=== PATIENT | female | born 1960 | race Caucasian/White ===

== ENCOUNTER 2018-06-08 07:19 | Inpatient (IN) | payer BC, MEDICARE ==
[~2018-06-08] VITALS: Ht 165.1 cm; Wt 114.7 kg
[2018-06-08 08:54] LABS: Basophils # (auto) 0 uL; Eosinophils # (auto) 0.2 uL; Eosinophils % (auto) 2.9 % (0.0-7.0); Monocytes # (auto) 0.4 uL; Neutrophils # (auto) 3.9 uL; Nucleated Red Blood Cells % 0.1 %; Red Blood Cells 4.28 10^6/uL (4.0-5.20); Red Cell Distribution Width 16.5 % (11.8-14.3)
[2018-06-08 08:55] LABS: Basophils % (auto) 0.5 % (0.0-2.0); Hemoglobin 11.2 g/dL (12.2-16.2); Lymphocytes # (auto) 2.6 uL; Mean Corpuscular Volume 79.5 fL (80.0-100.0); Neutrophils % (auto) 54.6 % (37.0-80.0); Platelet Count (auto) 191 10^3/uL (140-450); White Blood Cell 7.2 10^3/uL (4.4-10.8)
[2018-06-08 09:00] LABS: Mean Corpuscular Hemoglobin 26.4 pg (28.0-32.0)
[2018-06-08 09:05] LABS: Alanine Aminotransferase 21 U/L (13-56); Albumin 2.8 g/dL (3.4-5.0); Anion Gap 7 (5-15); Aspartate Aminotransferase 15 U/L (15-37); BUN/Creatinine Ratio 19.8; Blood Urea Nitrogen 17 mg/dL (7-18); Calcium 8.4 mg/dL (8.5-10.1); Carbon Dioxide 29 mmol/L (21-32); Chloride 103 mmol/L (98-107); GFR African American 87 mL/min; GFR Non-African American 72 mL/min; Glucose 179 mg/dL (74-106); Potassium 3.7 mmol/L (3.5-5.1); Sodium 139 mmol/L (136-145)
[2018-06-08 09:07] LABS: Partial Thromboplastin Time 33.7 sec (23.78-33.04); Prothrombin Time 10.7 sec (9.27-12.13)
[2018-06-08 09:11] LABS: Alkaline Phosphatase 80 U/L (45-117); Bilirubin, Total 0.2 mg/dL (0.2-1.0); Total Protein 7.7 g/dL (6.4-8.2)
[2018-06-08] MEDS ORDERED: ONDANSETRON HCL 4 MG/2 ML VIAL IV PRN (10:30)
[2018-06-08] MEDS ORDERED: DEXTROSE (50%) 50ML SYRG IV PRN (10:30)
[2018-06-08] MEDS ORDERED: HYDROcodone-ACET 5/325MG TAB PO PRN (10:30)
[2018-06-08] MEDS ORDERED: MORPHINE SULF INJ 2 MG/ML SYRINGE 1ML IV PRN (10:30)
[2018-06-08] MEDS ORDERED: NITROGLYCERIN 0.4MG/HR TOPICAL PATCH TD ONE (10:30)
[2018-06-08] MEDS ORDERED: MORPHINE SULFATE 4 MG/ML SYR/VIAL IV PRN (10:30)
[2018-06-08] MEDS ORDERED: NITROGLYCERIN 0.4 MG SL TAB SL PRN (10:30)
[2018-06-08 10:42] LABS: Urine Bacteria FEW /hpf (None Seen); Urine Blood Negative /uL (Negative); Urine Specific Gravity 1.016 (1.001-1.035); Urine WBC 14 /hpf (0 - 5)
[2018-06-08 11:09] LABS: Cholesterol 118 mg/dL (< 200)
[2018-06-08 11:13] LABS: HDL Cholesterol 36 mg/dL (40-59); LDL Cholesterol 71 mg/dL (< 100); Triglycerides 157 mg/dL (< 150)
[2018-06-08] MEDS ORDERED: CLINDAMYCIN 300MG IV 50 ML IV ONE (11:15)
[2018-06-08] MEDS: PANTOPRAZOLE 40 MG/10 ML VIAL IV SCH (11:44)
[2018-06-08] MEDS: ACCU-CHEK COMFORT CURVE STRIP VI SCH ×3 (11:50→22:00)
[2018-06-08] MEDS: InsuLIN REG 1unit/0.01ml Soln (100units/ml) SC SCH ×3 (11:54→23:06)
--- NOTE | 2018-06-08 18:00 | NUR ---
Telemetry admit from ER MOHIT SAUL admitted to Telemetry unit after SBAR received. Patient oriented to Echo Odnonell RN, unit, room, bed, and unit policies regarding patient care and visiting hours. Patient now on continuous telemetry monitoring, tele box # 21 and telemetry reading on arrival to unit is 76 SR. Patient placed standby bedside oxygen, weighed by bed scale and encouraged to call if she needs something. All questions and concerns addressed, patient verbalized understanding. Note: Patient awake, oriented x4. No acute distress noted.
--- NOTE | 2018-06-08 18:40 | NUR ---
Patient sitting in bed, eating dinner at this time. Family member at bedside.
[2018-06-08] MEDS ORDERED: GABA-339 PO (18:56)
[2018-06-08] MEDS ORDERED: CABE0.5T PO (18:56)
[2018-06-08] MEDS ORDERED: SERT-160 PO (18:56)
[2018-06-08] MEDS ORDERED: TRAM50TA2 PO (18:56)
[2018-06-08] MEDS ORDERED: GLIP-116 PO (18:56)
[2018-06-08] MEDS ORDERED: ATOR20TA50 PO (18:56)
[2018-06-08] MEDS ORDERED: METH10T PO (18:56)
--- NOTE | 2018-06-08 19:40 | NUR ---
Opening Shift Note Assumed care of patient, awake and alert x4. No S/S of distress/SOB on room air. Denies chest pain at this time. Bed locked in lowest position call light within reach. Instructed on POC and to call for assist PRN, will continue to monitor for changes Q1hr and PRN.
[2018-06-08] MEDS: CLINDAMYCIN 300MG IV 50 ML IV SCH (21:27)
[2018-06-08 22:00] VITALS: BP 112/55
[2018-06-08] MEDS ORDERED: ATORVASTATIN 20 MG TAB PO SCH (22:00)
[2018-06-08] MEDS: METOPROLOL TARTRATE 25 MG TAB PO SCH (23:05)
[2018-06-09 04:38] VITALS: BP 104/68
[2018-06-09] MEDS: ACCU-CHEK COMFORT CURVE STRIP VI SCH ×4 (05:44→22:53)
[2018-06-09] MEDS: CLINDAMYCIN 300MG IV 50 ML IV SCH ×3 (05:44→22:51)
[2018-06-09] MEDS: InsuLIN REG 1unit/0.01ml Soln (100units/ml) SC SCH ×4 (05:54→22:53)
[2018-06-09 06:03] LABS: Basophils # (auto) 0 uL; Basophils % (auto) 0.4 % (0.0-2.0); Eosinophils # (auto) 0.2 uL; Hematocrit 36.4 % (36.0-46.0); Hemoglobin 11.8 g/dL (12.2-16.2); Lymphocytes # (auto) 2.4 uL; Lymphocytes % (auto) 28.7 % (10.0-50.0); Mean Corpuscular Hemoglobin 26.2 pg (28.0-32.0); Mean Corpuscular Hgb Conc. 32.3 g/dL (32.0-36.0); Mean Corpuscular Volume 81.2 fL (80.0-100.0); Monocytes # (auto) 0.4 uL; Monocytes % (auto) 4.5 % (0.0-12.0); Neutrophils # (auto) 5.2 uL; Neutrophils % (auto) 63.4 % (37.0-80.0); Nucleated Red Blood Cells % 0.1 %; Platelet Count (auto) 193 10^3/uL (140-450); Red Blood Cells 4.48 10^6/uL (4.0-5.20); Red Cell Distribution Width 17.2 % (11.8-14.3); White Blood Cell 8.2 10^3/uL (4.4-10.8)
[2018-06-09 06:20] LABS: BUN/Creatinine Ratio 18.8; Calcium 8.8 mg/dL (8.5-10.1); Potassium 4.2 mmol/L (3.5-5.1)
--- NOTE | 2018-06-09 07:25 | NUR ---
Received report that patient wants her home medications resumed while in the hospital, that patient takes Methadone at night, not at 1000 am. Will call the Pharmacy to change the time for Methadone.
[2018-06-09] MEDS ORDERED: SERT-135 PO (07:30)
--- NOTE | 2018-06-09 07:40 | NUR ---
Patient in bed, asleep. On O2 at 2 LPM. No acute distress noted.
--- NOTE | 2018-06-09 08:18 | NUR ---
Called Pharmacy. Spoke with Pharmacist Desi that patient takes Methadone at night at home, not at 1000 am. Desi to reschedule Methadone to be given at night.
[2018-06-09 09:00] VITALS: BP 127/80
[2018-06-09] MEDS: PANTOPRAZOLE 40 MG/10 ML VIAL IV SCH (09:54)
[2018-06-09] MEDS: ASPirin 81 mg TAB PO SCH (09:55)
[2018-06-09] MEDS: ACETAMINOPHEN 500 MG TAB PO PRN ×2 (09:55→23:57)
[2018-06-09] MEDS: NITROGLYCERIN 0.4MG/HR TOPICAL PATCH TD SCH (09:55)
--- NOTE | 2018-06-09 09:55 | NUR ---
Patient refused Lopressor and Zestril, stated she does not take medications for blood pressure.
--- NOTE | 2018-06-09 09:55 | NUR ---
Patient asked for Tylenol for headache when she gets her Nitroglycerin patch applied.
[2018-06-09] MEDS: LISINOPRIL 5 MG TAB PO SCH (09:59)
[2018-06-09] MEDS: METOPROLOL TARTRATE 25 MG TAB PO SCH ×2 (09:59→22:52)
--- NOTE | 2018-06-09 11:10 | NUR ---
Lg Horn made aware patient gets so panicky, asking for Sertraline to help her calm down; patient takes Sertraline 100 mg PO BID at home. Dr. Bee ordered Zoloft 100 mg PO BID. Called Pharmacy to verify the medication.
--- NOTE | 2018-06-09 11:10 | NUR ---
Lg Horn made aware patient wants her home medications to be resumed while at the hospital (see Medication Reconciliation Home Meds) including Tramadol for pain and Neurontin/Gabapentin at night. MD said he will see the patient.
[2018-06-09] MEDS: SERTRALINE HCL 50 MG TAB PO SCH ×2 (11:17→22:53)
--- NOTE | 2018-06-09 12:20 | NUR ---
Patient refused Ativan PO, stated she used to take it but it was "addictive" she's not taking it anymore. Patient on Methadone.
--- NOTE | 2018-06-09 12:20 | NUR ---
Lg Horn has seen the patient. MD ordered to resume the medications patient takes at home.
--- NOTE | 2018-06-09 12:25 | NUR ---
Dr. Jameson (for Cardiology) at bedside. Patient has orders for Stress Test tomorrow, Sunday.
[2018-06-09] MEDS ORDERED: LEVOFLOXACIN 500 MG TAB PO ONE (12:30)
--- NOTE | 2018-06-09 13:10 | NUR ---
Family member at bedside.
[2018-06-09] MEDS: GABAPENTIN 300 MG CAP PO SCH ×2 (13:11→22:53)
--- NOTE | 2018-06-09 15:00 | NUR ---
New IV line started on the right lower forearm, 22 gauge, intact and patent. Patient able to tolerate it. Patient complained that IV line on the left wrist hurts. IV line on the left wrist removed, IV catheter intact, pressure dressing applied.
[2018-06-09] MEDS: traMADol HCL 50 MG TAB PO PRN (15:26)
--- NOTE | 2018-06-09 15:26 | NUR ---
Patient stated she's in pain, at 4/10 at this time. Tramadol PO given as ordered for pain.
[2018-06-09 17:00] VITALS: BP 127/71
--- NOTE | 2018-06-09 18:00 | NUR ---
Patient speaking to patient on Bed A (Room 278). Patient is ambulatory, steady gait noted.
[2018-06-09] MEDS: glipiZIDE 5 MG TAB PO SCH (18:08)
--- NOTE | 2018-06-09 19:00 | NUR ---
NPO after midnight for Cardiolite Multiple/Stress Test.
[2018-06-09 22:00] VITALS: BP 136/80
[2018-06-09] MEDS: ATORVASTATIN 20 MG TAB PO SCH (22:51)
[2018-06-09] MEDS: METHADONE HCL 10 MG TAB PO SCH (22:52)
[2018-06-10 05:23] VITALS: BP 106/61
[2018-06-10] MEDS: glipiZIDE 5 MG TAB PO SCH ×2 (06:12→18:13)
[2018-06-10] MEDS: GABAPENTIN 300 MG CAP PO SCH ×3 (06:12→22:01)
[2018-06-10] MEDS: CLINDAMYCIN 300MG IV 50 ML IV SCH ×3 (06:12→22:00)
[2018-06-10] MEDS: ACCU-CHEK COMFORT CURVE STRIP VI SCH ×4 (06:13→22:01)
[2018-06-10] MEDS: InsuLIN REG 1unit/0.01ml Soln (100units/ml) SC SCH ×4 (06:13→22:14)
[2018-06-10 08:00] VITALS: BP 92/56
--- NOTE | 2018-06-10 08:00 | NUR ---
Opening shift note: Patient is awake, alert, and orient x4. Patient is on 2 L of oxygen via nasal cannula. Ivs right wrist and right forearm both are patent, asystemic, clean and dry. no s/s of distress. patient states they are not having pain. Patient was told to call for assistance as need. bed in lowest position and call light is within reach.
[2018-06-10] MEDS ORDERED: ADENOSINE 89 MG in GIVE UN-DILUTED 0 ML IV STA (08:29)
[2018-06-10] MEDS: NITROGLYCERIN 0.4MG/HR TOPICAL PATCH TD SCH (10:00)
[2018-06-10] MEDS: SERTRALINE HCL 50 MG TAB PO SCH ×2 (10:12→22:01)
[2018-06-10] MEDS: PANTOPRAZOLE 40 MG/10 ML VIAL IV SCH (10:12)
[2018-06-10] MEDS: METOPROLOL TARTRATE 25 MG TAB PO SCH ×2 (10:13→22:00)
[2018-06-10] MEDS: ASPirin 81 mg TAB PO SCH (10:13)
[2018-06-10] MEDS: LEVOFLOXACIN 500 MG TAB PO SCH (10:13)
[2018-06-10] MEDS: LISINOPRIL 5 MG TAB PO SCH (10:14)
[2018-06-10 10:49] VITALS: BP 101/41
[2018-06-10 16:56] VITALS: BP 93/50
--- NOTE | 2018-06-10 19:30 | NUR ---
Opening Shift Note Assumed care of patient, awake and alert x4. No S/S of distress/SOB on 2L N/C as needed. Denies chest pain at this time. Bed locked in lowest position call light within reach. Instructed on POC and to call for assist PRN, will continue to monitor for changes Q1hr and PRN.
[2018-06-10] MEDS ORDERED: LACTULOSE 20Gm/30ML SOLN PO ONE (21:00)
[2018-06-10 22:00] VITALS: BP 96/55
[2018-06-10] MEDS: DOCUSATE SOD 100 MG CAP PO SCH (22:00)
[2018-06-10] MEDS: ATORVASTATIN 20 MG TAB PO SCH (22:00)
[2018-06-10] MEDS: METHADONE HCL 10 MG TAB PO SCH (22:01)
[2018-06-11] MEDS: ACETAMINOPHEN 500 MG TAB PO PRN (00:06)
[2018-06-11] MEDS ORDERED: ROPI0.5T PO (00:55)
[2018-06-11 04:59] VITALS: BP 98/45
--- NOTE | 2018-06-11 06:45 | NUR ---
SKIN/ RASH Electrodes from telemetry box appeared to cause redness and an open rash. Took wound photos and place wound consultation. Patient refusing to wear box. Informed PENNY and returned Box to PENNY.
[2018-06-11] MEDS: GABAPENTIN 300 MG CAP PO SCH ×3 (07:00→22:57)
[2018-06-11] MEDS: glipiZIDE 5 MG TAB PO SCH ×2 (07:00→17:52)
[2018-06-11] MEDS: CLINDAMYCIN 300MG IV 50 ML IV SCH ×3 (07:00→22:55)
[2018-06-11] MEDS: InsuLIN REG 1unit/0.01ml Soln (100units/ml) SC SCH ×4 (07:00→22:58)
[2018-06-11] MEDS: ACCU-CHEK COMFORT CURVE STRIP VI SCH ×4 (07:00→22:58)
[2018-06-11] MEDS: traMADol HCL 50 MG TAB PO PRN (07:01)
--- NOTE | 2018-06-11 07:27 | NUR ---
NEW ORDERS Verbal order read back and verified from Indira. See eMAR
[2018-06-11] MEDS ORDERED: diphenhdrAMINE HCL 25 MG CAP PO PRN (07:45)
[2018-06-11 09:00] VITALS: BP 97/61
[2018-06-11] MEDS: METOPROLOL TARTRATE 25 MG TAB PO SCH ×2 (10:00→22:56)
[2018-06-11] MEDS: NITROGLYCERIN 0.4MG/HR TOPICAL PATCH TD SCH (10:00)
[2018-06-11] MEDS: LISINOPRIL 5 MG TAB PO SCH (10:00)
[2018-06-11] MEDS: ASPirin 81 mg TAB PO SCH (11:00)
[2018-06-11] MEDS: PANTOPRAZOLE 40 MG/10 ML VIAL IV SCH (11:00)
--- NOTE | 2018-06-11 11:00 | NUR ---
WOUND CARE NOTE: WOUND PHOTOS TAKEN OF PATIENT'S TRUNK FOR REFERENCE BY BEDSIDE NURSE FOR NEW "RASH" DEVELOPED. WOUND CONSULT ORDERED. PATIENT APPEARS TO HAVE A TAPE ALLERGY TO ECG LEADS. ALL LEADS WERE REMOVED, RED INTACT RASH APPEARS TO BE A TAPE ALLERGY. SKIN REMAINS INTACT. ERYTHEMA HAS IMPROVED SINCE PHOTO WAS TAKEN. RECOMMEND: CAVILON NO STING BARRIER FILM TO BE APPLIED TO SKIN PRIOR TO ANY TAPE PRODUCT BEING PLACED ON PATIENT'S SKIN. NO WOUND CARE MONITORING IS NEEDED AT THIS TIME.
[2018-06-11] MEDS: SERTRALINE HCL 50 MG TAB PO SCH ×2 (11:01→22:57)
[2018-06-11] MEDS: DOCUSATE SOD 100 MG CAP PO SCH ×2 (11:01→22:56)
[2018-06-11] MEDS: LEVOFLOXACIN 500 MG TAB PO SCH (11:01)
[2018-06-11 13:00] VITALS: BP 92/58
[2018-06-11] MEDS: ROPINEROLE PO SCH ×2 (14:00→22:56)
--- NOTE | 2018-06-11 15:35 | NUR ---
Nutrition Assessment Notes please see attached link for complete assessment Est. Needs based on ABW (84 kg): 7131-1751 kcal (17-20 kcal/kgBW), 67-84 gms pro (0.8-1.0 gms/kgBW). Will continue to monitor pertinent labs and reassess nutrient needs prn Addendum: 06/11/18 at [address] Amended: Links added.
[2018-06-11 17:16] VITALS: BP 102/61
--- NOTE | 2018-06-11 20:04 | NUR ---
Delia hospitalist Rigo Patient requesting Lactulose, she reports constipation last BM 06-07-18. she is scheduled for LHC in the morning and does not want to be constipated post op.
[2018-06-11] MEDS ORDERED: LACTULOSE 20Gm/30ML SOLN PO ONE (20:45)
[2018-06-11 21:37] VITALS: BP 109/65
[2018-06-11] MEDS: ATORVASTATIN 20 MG TAB PO SCH (22:56)
[2018-06-11] MEDS: METHADONE HCL 10 MG TAB PO SCH (22:57)
--- NOTE | 2018-06-12 02:50 | NUR ---
Patient reports chest tightness VS: 98.8 126/72 HR65 16RR 94% 0254: 12 lead ECG completed placed in chart, NSR normal ECG
[2018-06-12] MEDS: ACETAMINOPHEN 500 MG TAB PO PRN ×2 (03:16→21:19)
[2018-06-12 05:00] VITALS: BP 112/63
--- NOTE | 2018-06-12 05:19 | NUR ---
Opening Shift Note Assumed care of patient, awake and alert x4. No S/S of distress/SOB on room air. Denies chest pain at this time. Bed locked in lowest position call light within reach. Instructed on POC and to call for assist PRN, will continue to monitor for changes Q1hr and PRN. Addendum: 06/12/18 at 0521 by RICKY BROWNE RN wrong date and time CORRECT DATE AND TIME 06/11/181929
[2018-06-12] MEDS: ROPINEROLE PO SCH ×3 (06:00→22:00)
[2018-06-12] MEDS: GABAPENTIN 300 MG CAP PO SCH ×3 (06:18→22:57)
[2018-06-12] MEDS: glipiZIDE 5 MG TAB PO SCH ×2 (06:18→19:49)
[2018-06-12] MEDS: CLINDAMYCIN 300MG IV 50 ML IV SCH ×3 (06:18→22:49)
[2018-06-12] MEDS: InsuLIN REG 1unit/0.01ml Soln (100units/ml) SC SCH ×4 (06:19→22:00)
[2018-06-12] MEDS: ACCU-CHEK COMFORT CURVE STRIP VI SCH ×4 (06:19→23:06)
--- NOTE | 2018-06-12 07:00 | NUR ---
RECEIVED REPORT FROM RICKY VALENZUELA RN. PATIENT IS RESTING IN BED NO S/S OF DISTRESS.
--- NOTE | 2018-06-12 07:20 | NUR ---
ROLL UP MACHINE OPERATOR CALLED AND IS READY FOR PATIENT.
[2018-06-12] MEDS ORDERED: IODIXANOL 320MG/ML 100ML BTL IV ONE (07:30)
[2018-06-12] MEDS ORDERED: LIDOCAINE 2%HCL (LOCAL ANESTH.) INJ 20ML MDV ONE (07:31)
--- NOTE | 2018-06-12 07:50 | NUR ---
PATIENT IS IN ASBESTOS WORKER FOR PROCEDURE.
[2018-06-12] MEDS ORDERED: fentaNYL CITRATE 100 MCG/2 ML VL ONE (09:13)
[2018-06-12] MEDS ORDERED: ANGIOMAX 250 MG VIAL IV ONE (09:13)
[2018-06-12] MEDS ORDERED: MIDAZOLAM HCL 1MG/1ML-2 ML VIAL ONE (09:13)
[2018-06-12] MEDS ORDERED: SODIUM CHL 0.9% 0 ML ONE (09:13)
[2018-06-12] MEDS: METOPROLOL TARTRATE 25 MG TAB PO SCH ×2 (10:00→21:18)
[2018-06-12] MEDS: NITROGLYCERIN 0.4MG/HR TOPICAL PATCH TD SCH (10:00)
[2018-06-12 13:00] VITALS: BP 142/59
[2018-06-12] MEDS: PANTOPRAZOLE 40 MG/10 ML VIAL IV SCH (13:03)
[2018-06-12] MEDS: DOCUSATE SOD 100 MG CAP PO SCH ×2 (13:04→22:56)
[2018-06-12] MEDS: ASPirin 81 mg TAB PO SCH (13:04)
[2018-06-12] MEDS: LEVOFLOXACIN 500 MG TAB PO SCH (13:04)
[2018-06-12] MEDS: LISINOPRIL 5 MG TAB PO SCH (13:06)
[2018-06-12] MEDS: SERTRALINE HCL 50 MG TAB PO SCH ×2 (13:11→22:58)
[2018-06-12] MEDS ORDERED: ALUM & MAG HYDROX-SIMETH LIQ(MAALOX) 30 ML PO ONE (15:45)
[2018-06-12 17:08] VITALS: BP 69/48
--- NOTE | 2018-06-12 20:00 | NUR ---
Opening Shift Note Assumed care of patient, awake and alert X4, patient ambulates independently to bathroom. Patient is s/p LHC today, dressing to right groin is C/D/I. Pulses palpable to bilateral lower extremities, sensation intact bilaterally. Patient refusing mercury washer due to tape allergy. Patient instructed on importance of continuous telemetry monitoring patient continues to refuse, no mercury washer in place x2 days. No S/S of distress/SOB or pain. Instructed on POC and to call for assist PRN, will continue to monitor for changes Q1hr and PRN.
[2018-06-12 22:00] VITALS: BP 95/54
[2018-06-12] MEDS: ATORVASTATIN 20 MG TAB PO SCH (22:57)
[2018-06-12] MEDS: METHADONE HCL 10 MG TAB PO SCH (22:59)
[2018-06-12] MEDS: traMADol HCL 50 MG TAB PO PRN (23:54)
[2018-06-13 05:48] VITALS: BP 91/48
[2018-06-13] MEDS: ROPINEROLE PO SCH ×2 (06:00→14:00)
[2018-06-13] MEDS: CLINDAMYCIN 300MG IV 50 ML IV SCH ×2 (06:35→14:00)
[2018-06-13] MEDS: GABAPENTIN 300 MG CAP PO SCH ×2 (06:35→14:00)
[2018-06-13] MEDS: glipiZIDE 5 MG TAB PO SCH (06:36)
[2018-06-13] MEDS: ACCU-CHEK COMFORT CURVE STRIP VI SCH ×2 (06:36→11:30)
[2018-06-13] MEDS: InsuLIN REG 1unit/0.01ml Soln (100units/ml) SC SCH ×2 (06:47→11:30)
[2018-06-13 08:53] VITALS: BP 102/57
[2018-06-13] MEDS: PANTOPRAZOLE 40 MG/10 ML VIAL IV SCH (10:00)
[2018-06-13] MEDS: DOCUSATE SOD 100 MG CAP PO SCH (10:00)
[2018-06-13] MEDS: ASPirin 81 mg TAB PO SCH (10:00)
[2018-06-13] MEDS: LISINOPRIL 5 MG TAB PO SCH (10:00)
[2018-06-13] MEDS: NITROGLYCERIN 0.4MG/HR TOPICAL PATCH TD SCH (10:00)
[2018-06-13] MEDS: SERTRALINE HCL 50 MG TAB PO SCH (10:00)
[2018-06-13] MEDS: LEVOFLOXACIN 500 MG TAB PO SCH (10:00)
[2018-06-13] MEDS: METOPROLOL TARTRATE 25 MG TAB PO SCH (10:00)
[2018-06-13 11:28] LABS: Basophils # (auto) 0 uL; Basophils % (auto) 0.2 % (0.0-2.0); Eosinophils # (auto) 0.3 uL; Monocytes # (auto) 0.5 uL; Red Cell Distribution Width 17.3 % (11.8-14.3)
[2018-06-13 11:30] LABS: Eosinophils % (auto) 3.5 % (0.0-7.0); Hematocrit 33.2 % (36.0-46.0); Hemoglobin 10.7 g/dL (12.2-16.2); Lymphocytes # (auto) 2.7 uL; Lymphocytes % (auto) 36.2 % (10.0-50.0); Mean Corpuscular Hemoglobin 25.9 pg (28.0-32.0); Mean Corpuscular Hgb Conc. 32.2 g/dL (32.0-36.0); Mean Corpuscular Volume 80.5 fL (80.0-100.0); Monocytes % (auto) 6.7 % (0.0-12.0); Neutrophils # (auto) 3.9 uL; Neutrophils % (auto) 53.4 % (37.0-80.0); Nucleated Red Blood Cells % 0.1 %; Platelet Count (auto) 185 10^3/uL (140-450); Red Blood Cells 4.13 10^6/uL (4.0-5.20); White Blood Cell 7.3 10^3/uL (4.4-10.8)
[2018-06-13 11:43] LABS: Calcium 8.5 mg/dL (8.5-10.1); Potassium 4.5 mmol/L (3.5-5.1)
--- NOTE | 2018-06-13 12:19 | NUR ---
Opening Shift Note Assumed care of patient, awake and alert. No S/S of distress/SOB or pain. Instructed on POC and to call for assist PRN, will continue to monitor for changes Q1hr and PRN.
--- NOTE | 2018-06-13 12:50 | NUR ---
Dr. Bee is present at the patient's bedside. Discussed discharge with the patient and follow up instructions.
--- NOTE | 2018-06-13 13:02 | NUR ---
CHAPERONED DR. KABA
[2018-06-13 13:15] VITALS: BP 102/55
[2018-06-13 13:29] VITALS: BP 110/63
--- NOTE | 2018-06-13 13:55 | NUR ---
Discharged The patient has been discharged from the unit. All discharge and follow up instructions were given to the patient. The patient was educated and verbalized her understanding.
== END 2018-06-13 14:05 | disposition home or self-care (01) | DRG 287 ==
LOC: ER 07:19 → TELE 10:45 → TELE-WESTW 18:02
PROVIDERS: ADMIT Nurse Practitioner Acute Care; ATTEND Family Medicine
PROC: 4A023N7 Measurement of Cardiac Sampling and Pressure, Left Heart, Percutaneous Approach (ICD-10-PCS; principal; 2018-06-12)
PROC: B2111ZZ Fluoroscopy of Multiple Coronary Arteries using Low Osmolar Contrast (ICD-10-PCS; 2018-06-12)
PROC: B2151ZZ Fluoroscopy of Left Heart using Low Osmolar Contrast (ICD-10-PCS; 2018-06-12)
DX: R07.89 Other chest pain (principal); I24.9 Acute ischemic heart disease, unspecified; F11.20 Opioid dependence, uncomplicated; E44.0 Moderate protein-calorie malnutrition; L03.115 Cellulitis of right lower limb; N39.0 Urinary tract infection, site not specified; Z68.41 Body mass index [BMI] 40.0-44.9, adult; D64.9 Anemia, unspecified; I10 Essential (primary) hypertension; E11.9 Type 2 diabetes mellitus without complications; E66.01 Morbid (severe) obesity due to excess calories; Z88.0 Allergy status to penicillin; Z88.2 Allergy status to sulfonamides; Z85.72 Personal history of non-Hodgkin lymphomas; Z91.11 Patient's noncompliance with dietary regimen; Z79.4 Long term (current) use of insulin; Z92.21 Personal history of antineoplastic chemotherapy
CPT/HCPCS: 36415; 71045; 78452; 80048; 80053; 80061; 81001; 82962; 83036; 83880; 84443; 84484; 85025; 85379; 85610; 85730; 86141; 93005; 93017; 93306; 93970; 96365; 96375; 99152; A6257; C9113; G0378; J0153; J1815; J2250; J2405; J3490; Q9967

== ENCOUNTER 2019-09-17 14:20 | Inpatient (IN) | payer BC, MEDICARE ==
[~2019-09-17] VITALS: Ht 162.6 cm; Wt 98.5 kg
[~2019-09-17 14:20] MED LIST: ATOR20TA50 PO; CABE0.5T PO; GABA-339 PO; GLIP10TA9 PO; METH10T PO; ROPI0.5T16 PO; SERT100T PO; TRAM50TA2 PO
[2019-09-17] MEDS ORDERED: ACETAMINOPHEN 500 MG TAB PO ONE ×2 (14:52→15:00)
[2019-09-17 15:28] LABS: Basophils # (auto) 0 10 ^3/uL (0-0.2); Eosinophils # (auto) 0 10 ^3/uL (0-0.8); Lymphocytes # (auto) 0.7 10 ^3/uL (0.4-5.4); Lymphocytes % (auto) 20.9 % (10.0-50.0); Monocytes # (auto) 0.2 10 ^3/uL (0-1.3); Neutrophils # (auto) 2.5 10 ^3/uL (1.6-8.6); White Blood Cell 3.5 10^3/uL (4.4-10.8)
[2019-09-17 15:30] LABS: Basophils % (auto) 0.2 % (0.0-2.0); Eosinophils % (auto) 0.3 % (0.0-7.0); Hematocrit 37.3 % (36.0-46.0); Hemoglobin 12.3 g/dL (12.2-16.2); Mean Corpuscular Hemoglobin 25.9 pg (28.0-32.0); Mean Corpuscular Volume 78.5 fL (80.0-100.0); Monocytes % (auto) 6.4 % (0.0-12.0); Neutrophils % (auto) 72.2 % (37.0-80.0); Nucleated Red Blood Cells % 0.3 %; Platelet Count (auto) 192 10^3/uL (140-450); Red Blood Cells 4.75 10^6/uL (4.0-5.20); Red Cell Distribution Width 16.8 % (11.8-14.3)
[2019-09-17] MEDS ORDERED: cefTRIAXone 1GM/50ML D5W 50 ML IV ONE (15:30)
[2019-09-17] MEDS ORDERED: AZITHROMYCIN 500MG/ 250ML 250 ML IV ONE (15:30)
[2019-09-17 15:41] LABS: INR 1.25 (0.9-1.15); Partial Thromboplastin Time 38.5 sec (23.64-32.05)
[2019-09-17] MEDS ORDERED: ZINC SULFATE 220mg CAP or TAB PO ONE (15:45)
[2019-09-17] MEDS ORDERED: hydrOXYchloroQUINE SULFATE 200 MG TAB PO ONE (15:45)
[2019-09-17 15:50] LABS: Albumin 3.2 g/dL (3.4-5.0); Anion Gap 6 (5-15); Calcium 8.9 mg/dL (8.5-10.1); Carbon Dioxide 27 mmol/L (21-32); Chloride 102 mmol/L (98-107); Glucose 162 mg/dL (74-106); Magnesium 1.8 mg/dL (1.6-2.6); Potassium 3.8 mmol/L (3.5-5.1); Sodium 135 mmol/L (136-145)
[2019-09-17 15:57] LABS: Alanine Aminotransferase 22 U/L (13-56); Alkaline Phosphatase 81 U/L (45-117); Aspartate Aminotransferase 27 U/L (15-37); Bilirubin, Total 0.4 mg/dL (0.2-1.0); GFR African American 77 mL/min; GFR Non-African American 64 mL/min; Lactate Dehydrogenase 283 U/L (84-246)
[2019-09-17 16:00] LABS: Urine Bacteria FEW /hpf (None Seen); Urine Blood TRACE /uL (Negative); Urine Hyaline Cast FEW /lpf (0 - 2); Urine Mucus FEW (None Seen); Urine Specific Gravity 1.018 (1.001-1.035); Urine WBC 7 /hpf (0 - 5)
[2019-09-17] MEDS ORDERED: CHOLECALCIFEROL (VITD3) 1,000IU=25mCg TAB PO ONE (16:00)
[2019-09-17] MEDS ORDERED: ASCORBIC ACID 500 MG TAB PO ONE (16:00)
[2019-09-17 16:07] LABS: BUN/Creatinine Ratio 12.6; Blood Urea Nitrogen 12 mg/dL (7-18)
[2019-09-17] MEDS ORDERED: HYDROcodone-ACET 5/325MG TAB PO PRN (18:15)
[2019-09-17] MEDS ORDERED: ACETAMINOPHEN 500 MG TAB PO PRN (18:15)
[2019-09-17] MEDS ORDERED: ONDANSETRON HCL 4 MG/2 ML VIAL IV PRN (18:15)
[2019-09-17] MEDS ORDERED: NITROGLYCERIN 0.4 MG SL TAB SL PRN (18:15)
[2019-09-17] MEDS ORDERED: MORPHINE SULF INJ 2 MG/ML SYRINGE 1ML IV PRN ×2 (18:15)
[2019-09-17] MEDS ORDERED: DEXTROSE (50%) 50ML SYRG IV PRN (18:45)
[2019-09-17 21:47] LABS: Magnesium 1.5 mg/dL (1.6-2.6)
[2019-09-17 21:56] LABS: CRP High Sensitivity 10.9 mg/dL (< 0.3)
[2019-09-17] MEDS: InsuLIN REG 1unit/0.01ml Soln (100units/ml) SC SCH (22:00)
[2019-09-17] MEDS ORDERED: ALBUTEROL SULF HFA 90MCG INH 200DOSE IN SCH (22:00)
[2019-09-17 23:17] VITALS: BP 116/68
[2019-09-17] MEDS: DOXYCYCLINE 100 MG TAB/CAP PO SCH (23:59)
[2019-09-17] MEDS: methylPREDNISolone SOD SUCC 40 MG/ML VL IV SCH (23:59)
[2019-09-18] MEDS ORDERED: PIPERACILLIN-TAZOB 3.375GM 100 ML IV SCH
[2019-09-18] MEDS: ACCU-CHEK COMFORT CURVE STRIP VI SCH ×5 (00:11→22:40)
[2019-09-18] MEDS ORDERED: METF-370 PO (00:58)
[2019-09-18] MEDS ORDERED: EMPA1TAB PO (00:58)
[2019-09-18] MEDS ORDERED: SERT-274 PO (00:58)
[2019-09-18] MEDS: ACETAMINOPHEN 500 MG TAB PO PRN (02:53)
[2019-09-18 04:30] VITALS: BP 106/62
[2019-09-18 05:02] LABS: Basophils # (auto) 0 10 ^3/uL (0-0.2); Eosinophils # (auto) 0 10 ^3/uL (0-0.8); Hemoglobin 11.3 g/dL (12.2-16.2); Lymphocytes # (auto) 0.4 10 ^3/uL (0.4-5.4); Monocytes # (auto) 0.1 10 ^3/uL (0-1.3); Nucleated Red Blood Cells % 0.1 %
[2019-09-18 05:03] LABS: Basophils % (auto) 0.3 % (0.0-2.0); Lymphocytes % (auto) 11.1 % (10.0-50.0); Mean Corpuscular Hemoglobin 25.5 pg (28.0-32.0); Mean Corpuscular Hgb Conc. 32.4 g/dL (32.0-36.0); Mean Corpuscular Volume 78.6 fL (80.0-100.0); Neutrophils # (auto) 3.4 10 ^3/uL (1.6-8.6); Neutrophils % (auto) 85.6 % (37.0-80.0); Platelet Count (auto) 186 10^3/uL (140-450); Red Blood Cells 4.46 10^6/uL (4.0-5.20); Red Cell Distribution Width 16.9 % (11.8-14.3)
[2019-09-18 05:20] LABS: Albumin 2.8 g/dL (3.4-5.0); Calcium 8.9 mg/dL (8.5-10.1); Potassium 3.9 mmol/L (3.5-5.1)
[2019-09-18 05:23] LABS: BUN/Creatinine Ratio 14.3; Bilirubin, Total 0.3 mg/dL (0.2-1.0); Total Protein 8.3 g/dL (6.4-8.2)
[2019-09-18] MEDS: InsuLIN REG 1unit/0.01ml Soln (100units/ml) SC SCH ×3 (07:24→18:36)
[2019-09-18 08:00] VITALS: BP_SYST 128; BP_SYST 95; BP_DIAS 54; BP_DIAS 78
[2019-09-18] MEDS ORDERED: cefTRIAXone 1GM/50ML D5W 50 ML IV SCH (09:00)
[2019-09-18] MEDS: ATORVASTATIN 20 MG TAB PO SCH (09:46)
[2019-09-18] MEDS: ENOXAPARIN SOD 40 MG/0.4 ML SYRINGE SC SCH (09:46)
[2019-09-18] MEDS: methylPREDNISolone SOD SUCC 40 MG/ML VL IV SCH ×2 (09:46→22:18)
[2019-09-18] MEDS: ZINC SULFATE 220mg CAP or TAB PO SCH (09:46)
[2019-09-18] MEDS: DOXYCYCLINE 100 MG TAB/CAP PO SCH ×2 (09:47→22:19)
[2019-09-18] MEDS: ASCORBIC ACID 1,000 MG TAB PO SCH (09:48)
[2019-09-18] MEDS: CHOLECALCIFEROL (VITD3) 1,000IU=25mCg TAB PO SCH (09:48)
[2019-09-18 12:00] VITALS: BP 131/63
[2019-09-18] MEDS ORDERED: DEXTROSE (50%) 50ML SYRG IV PRN (14:15)
[2019-09-18] MEDS ORDERED: MAGNESIUM SULFATE 1GM/100ML 100 ML IV ONE (14:15)
[2019-09-18] MEDS: GABAPENTIN 300 MG CAP PO SCH ×2 (14:33→22:40)
[2019-09-18 16:30] VITALS: BP 124/62
[2019-09-18 20:00] VITALS: BP 130/78
[2019-09-18 20:54] VITALS: BP 124/62
[2019-09-18] MEDS: ALBUTEROL SULF HFA 90MCG INH 200DOSE IN SCH (21:40)
[2019-09-18] MEDS: ROPINIROLE 0.25 MG PO SCH (22:40)
[2019-09-19] VITALS: BP 119/68
[2019-09-19] MEDS: InsuLIN REG 1unit/0.01ml Soln (100units/ml) SC SCH ×5 (02:29→22:19)
[2019-09-19 05:00] VITALS: BP 99/68
[2019-09-19] MEDS: ACCU-CHEK COMFORT CURVE STRIP VI SCH ×4 (06:54→22:19)
[2019-09-19] MEDS: ALBUTEROL SULF HFA 90MCG INH 200DOSE IN SCH ×3 (06:54→22:20)
[2019-09-19] MEDS: GABAPENTIN 300 MG CAP PO SCH ×3 (06:54→22:18)
[2019-09-19 08:00] VITALS: BP 103/63
[2019-09-19] MEDS: PANTOPRAZOLE 40 MG TAB PO SCH (09:48)
[2019-09-19] MEDS: ENOXAPARIN SOD 40 MG/0.4 ML SYRINGE SC SCH (09:48)
[2019-09-19] MEDS: ASCORBIC ACID 1,000 MG TAB PO SCH (09:48)
[2019-09-19] MEDS: ZINC SULFATE 220mg CAP or TAB PO SCH (09:48)
[2019-09-19] MEDS: methylPREDNISolone SOD SUCC 40 MG/ML VL IV SCH ×2 (09:49→22:20)
[2019-09-19] MEDS: CHOLECALCIFEROL (VITD3) 1,000IU=25mCg TAB PO SCH (09:49)
[2019-09-19] MEDS: ATORVASTATIN 20 MG TAB PO SCH (09:49)
[2019-09-19] MEDS: DOXYCYCLINE 100 MG TAB/CAP PO SCH (09:49)
[2019-09-19 12:00] VITALS: BP 122/78
[2019-09-19] MEDS ORDERED: FUROSEMIDE 20 MG/2 ML VIAL IV ONE (13:00)
[2019-09-19] MEDS ORDERED: PIPERACILLIN-TAZOB 3.375GM 100 ML IV ONE (13:00)
[2019-09-19 17:00] VITALS: BP 124/66
[2019-09-19] MEDS: MEROPENEM 1GM IVPB 100 ML IV SCH ×2 (17:51→22:20)
[2019-09-19] MEDS ORDERED: PIPERACILLIN-TAZOB 3.375GM 100 ML IV SCH (18:00)
[2019-09-19 22:00] VITALS: BP 113/65
[2019-09-19] MEDS ORDERED: INSULIN LANTUS (GLARGINE) 1 /0.01ml (100units/ml) SC SCH (22:00)
[2019-09-19] MEDS: ROPINIROLE 0.25 MG PO SCH (22:18)
[2019-09-20 05:00] VITALS: BP 140/81
[2019-09-20] MEDS: GABAPENTIN 300 MG CAP PO SCH ×3 (05:45→21:56)
[2019-09-20] MEDS: ALBUTEROL SULF HFA 90MCG INH 200DOSE IN SCH ×3 (05:45→22:00)
[2019-09-20] MEDS: InsuLIN REG 1unit/0.01ml Soln (100units/ml) SC SCH ×4 (05:47→22:10)
[2019-09-20] MEDS: ACCU-CHEK COMFORT CURVE STRIP VI SCH ×4 (05:53→21:56)
[2019-09-20 06:01] LABS: Basophils # (auto) 0 10 ^3/uL (0-0.2); Basophils % (auto) 0.1 % (0.0-2.0); Eosinophils # (auto) 0 10 ^3/uL (0-0.8); Mean Corpuscular Hemoglobin 25.4 pg (28.0-32.0); Monocytes # (auto) 0.5 10 ^3/uL (0-1.3); Neutrophils # (auto) 6.3 10 ^3/uL (1.6-8.6); Red Cell Distribution Width 16.9 % (11.8-14.3)
[2019-09-20 06:02] LABS: Hematocrit 37.4 % (36.0-46.0); Lymphocytes % (auto) 12.4 % (10.0-50.0); Mean Corpuscular Hgb Conc. 32.1 g/dL (32.0-36.0); Mean Corpuscular Volume 79.2 fL (80.0-100.0); Neutrophils % (auto) 81.5 % (37.0-80.0); Nucleated Red Blood Cells % 0.1 %; Platelet Count (auto) 269 10^3/uL (140-450); Red Blood Cells 4.72 10^6/uL (4.0-5.20); White Blood Cell 7.8 10^3/uL (4.4-10.8)
[2019-09-20 06:11] LABS: Potassium 4.9 mmol/L (3.5-5.1)
[2019-09-20 06:19] LABS: BUN/Creatinine Ratio 29.7; Calcium 9.6 mg/dL (8.5-10.1); Magnesium 2.1 mg/dL (1.6-2.6)
[2019-09-20] MEDS: MEROPENEM 1GM IVPB 100 ML IV SCH ×3 (07:48→21:49)
[2019-09-20 08:00] VITALS: BP 140/81
[2019-09-20] MEDS: FUROSEMIDE 20 MG/2 ML VIAL IV SCH (09:21)
[2019-09-20] MEDS: methylPREDNISolone SOD SUCC 40 MG/ML VL IV SCH ×2 (09:22→21:55)
[2019-09-20] MEDS: ASCORBIC ACID 1,000 MG TAB PO SCH (09:23)
[2019-09-20] MEDS: PANTOPRAZOLE 40 MG TAB PO SCH (09:23)
[2019-09-20] MEDS: ZINC SULFATE 220mg CAP or TAB PO SCH (09:23)
[2019-09-20] MEDS: ENOXAPARIN SOD 40 MG/0.4 ML SYRINGE SC SCH (09:24)
[2019-09-20] MEDS: CHOLECALCIFEROL (VITD3) 1,000IU=25mCg TAB PO SCH (09:24)
[2019-09-20 10:00] VITALS: BP 125/72
[2019-09-20 12:00] VITALS: BP 132/75
[2019-09-20 17:00] VITALS: BP 119/63
[2019-09-20 20:00] VITALS: BP 129/67
[2019-09-20] MEDS: ROPINIROLE 0.25 MG PO SCH (22:08)
[2019-09-20] MEDS: INSULIN LANTUS (GLARGINE) 1 /0.01ml (100units/ml) SC SCH (22:11)
[2019-09-21] VITALS: BP 126/69
[2019-09-21 04:00] VITALS: BP 156/74
[2019-09-21] MEDS: MEROPENEM 1GM IVPB 100 ML IV SCH ×3 (05:40→23:34)
[2019-09-21] MEDS: GABAPENTIN 300 MG CAP PO SCH ×3 (05:40→23:36)
[2019-09-21] MEDS: ALBUTEROL SULF HFA 90MCG INH 200DOSE IN SCH ×3 (06:00→23:13)
[2019-09-21] MEDS: ACCU-CHEK COMFORT CURVE STRIP VI SCH ×4 (06:46→23:36)
[2019-09-21] MEDS: InsuLIN REG 1unit/0.01ml Soln (100units/ml) SC SCH ×3 (06:48→17:00)
[2019-09-21] MEDS: FUROSEMIDE 20 MG/2 ML VIAL IV SCH (10:34)
[2019-09-21] MEDS: methylPREDNISolone SOD SUCC 40 MG/ML VL IV SCH ×2 (10:35→23:35)
[2019-09-21] MEDS: ZINC SULFATE 220mg CAP or TAB PO SCH (10:35)
[2019-09-21] MEDS: PANTOPRAZOLE 40 MG TAB PO SCH (10:36)
[2019-09-21] MEDS: CHOLECALCIFEROL (VITD3) 1,000IU=25mCg TAB PO SCH (10:36)
[2019-09-21] MEDS: ENOXAPARIN SOD 40 MG/0.4 ML SYRINGE SC SCH (10:36)
[2019-09-21] MEDS: ASCORBIC ACID 1,000 MG TAB PO SCH (10:36)
[2019-09-21 16:00] VITALS: BP 117/70
[2019-09-21] MEDS: ROPINIROLE 0.25 MG PO SCH (23:35)
[2019-09-21] MEDS: INSULIN LANTUS (GLARGINE) 1 /0.01ml (100units/ml) SC SCH (23:38)
[2019-09-22] MEDS: InsuLIN REG 1unit/0.01ml Soln (100units/ml) SC SCH ×5 (00:02→21:05)
[2019-09-22] MEDS: ACETAMINOPHEN 500 MG TAB PO PRN (00:03)
[2019-09-22 03:02] VITALS: BP 117/70
[2019-09-22 06:00] VITALS: BP 139/71
[2019-09-22] MEDS: ALBUTEROL SULF HFA 90MCG INH 200DOSE IN SCH ×3 (06:32→22:58)
[2019-09-22] MEDS: GABAPENTIN 300 MG CAP PO SCH ×2 (06:33→13:43)
[2019-09-22] MEDS: MEROPENEM 1GM IVPB 100 ML IV SCH ×2 (06:33→13:43)
[2019-09-22] MEDS: ACCU-CHEK COMFORT CURVE STRIP VI SCH ×4 (06:33→21:05)
[2019-09-22] MEDS: methylPREDNISolone SOD SUCC 40 MG/ML VL IV SCH ×2 (10:21→22:59)
[2019-09-22] MEDS: ZINC SULFATE 220mg CAP or TAB PO SCH (10:21)
[2019-09-22] MEDS: FUROSEMIDE 40 MG/4 ML VIAL IV SCH (10:21)
[2019-09-22] MEDS: ENOXAPARIN SOD 40 MG/0.4 ML SYRINGE SC SCH (10:22)
[2019-09-22] MEDS: CHOLECALCIFEROL (VITD3) 1,000IU=25mCg TAB PO SCH (10:22)
[2019-09-22] MEDS: ASCORBIC ACID 1,000 MG TAB PO SCH (10:22)
[2019-09-22] MEDS: PANTOPRAZOLE 40 MG TAB PO SCH (10:22)
[2019-09-22] MEDS ORDERED: ENOXAPARIN SOD 60 MG/0.6 ML SYRINGE SC ONE (15:30)
[2019-09-22] MEDS ORDERED: cefTRIAXone 1GM/50ML D5W 50 ML IV ONE (15:30)
[2019-09-22] MEDS ORDERED: ACETAMINOPHEN 500 MG TAB PO PRN (16:15)
[2019-09-22] MEDS ORDERED: ACETAMINOPHEN 650 mg PER 20 mL UD PO ONE (20:00)
[2019-09-22] MEDS ORDERED: methylPREDNISolone SOD SUCC 40 MG/ML VL IV ONE (20:00)
[2019-09-22] MEDS ORDERED: diphenhdrAMINE HCL 50 MG/1 ML VL IV ONE (20:00)
[2019-09-22] MEDS: ROPINIROLE 0.25 MG PO SCH (20:40)
[2019-09-22] MEDS: ENOXAPARIN SOD 100 MG/1 ML SYRINGE SC SCH (21:04)
[2019-09-22] MEDS: INSULIN LANTUS (GLARGINE) 1 /0.01ml (100units/ml) SC SCH (21:05)
[2019-09-22] MEDS ORDERED: REMDESIVIR 200 MG in NS 210ml LOADING DOSE ADULT IV ONE (21:30)
[2019-09-22] MEDS: TOCILIZUMAB 400 MG in SODIUM CHL 0.9% 80 ML IV SCH (21:37)
[2019-09-22 22:00] VITALS: BP_SYST 108; BP_SYST 149; BP_DIAS 59; BP_DIAS 83
[2019-09-22] MEDS ORDERED: TEMAZEPAM 15 MG CAP PO ONE (23:15)
[2019-09-23] VITALS (8 sets, daily range): BP systolic 99–140; BP diastolic 64–86
[2019-09-23] MEDS: ACCU-CHEK COMFORT CURVE STRIP VI SCH ×4 (06:02→22:21)
[2019-09-23] MEDS: ALBUTEROL SULF HFA 90MCG INH 200DOSE IN SCH ×3 (06:02→22:20)
[2019-09-23] MEDS: InsuLIN REG 1unit/0.01ml Soln (100units/ml) SC SCH ×4 (06:29→22:22)
[2019-09-23] MEDS ORDERED: ACETAMINOPHEN 650 mg PER 20 mL UD PO ONE (08:00)
[2019-09-23] MEDS ORDERED: diphenhdrAMINE HCL 50 MG/1 ML VL IV ONE (08:00)
[2019-09-23] MEDS: TOCILIZUMAB 400 MG in SODIUM CHL 0.9% 80 ML IV SCH (08:33)
[2019-09-23] MEDS: cefTRIAXone 1GM/50ML D5W 50 ML IV SCH (09:55)
[2019-09-23] MEDS: ZINC SULFATE 220mg CAP or TAB PO SCH (09:55)
[2019-09-23] MEDS: PANTOPRAZOLE 40 MG TAB PO SCH (09:56)
[2019-09-23] MEDS: methylPREDNISolone SOD SUCC 40 MG/ML VL IV SCH ×2 (09:56→22:20)
[2019-09-23] MEDS: FUROSEMIDE 40 MG/4 ML VIAL IV SCH (09:56)
[2019-09-23] MEDS: ENOXAPARIN SOD 100 MG/1 ML SYRINGE SC SCH ×2 (09:57→22:21)
[2019-09-23] MEDS: ASCORBIC ACID 1,000 MG TAB PO SCH (09:57)
[2019-09-23] MEDS: CHOLECALCIFEROL (VITD3) 1,000IU=25mCg TAB PO SCH (09:57)
[2019-09-23] MEDS ORDERED: POTASSIUM CHL 10 Meq TABLET PO SCH (10:00)
[2019-09-23 14:21] LABS: Albumin 3.3 g/dL (3.4-5.0); Calcium 9.9 mg/dL (8.5-10.1)
[2019-09-23 14:24] LABS: BUN/Creatinine Ratio 36.8; Bilirubin, Total 0.3 mg/dL (0.2-1.0); Total Protein 9.1 g/dL (6.4-8.2)
[2019-09-23] MEDS: REMDESIVIR 100mg in NS 230ml DAILYx4DAYS (NO VENT) IV SCH (17:42)
[2019-09-23] MEDS ORDERED: REMDESIVIR 100mg in NS 230ml DAILYx4DAYS (NO VENT) IV SCH (21:30)
[2019-09-23] MEDS: ROPINIROLE 0.25 MG PO SCH (22:20)
[2019-09-23] MEDS: INSULIN LANTUS (GLARGINE) 1 /0.01ml (100units/ml) SC SCH (22:22)
[2019-09-23] MEDS: TEMAZEPAM 15 MG CAP PO PRN (22:23)
[2019-09-24 05:00] VITALS: BP 131/74
[2019-09-24 05:06] LABS: Albumin 3.2 g/dL (3.4-5.0); Calcium 9.9 mg/dL (8.5-10.1); Potassium 4.3 mmol/L (3.5-5.1)
[2019-09-24 05:09] LABS: BUN/Creatinine Ratio 40.2; Bilirubin, Total 0.3 mg/dL (0.2-1.0); Total Protein 8.9 g/dL (6.4-8.2)
[2019-09-24] MEDS: ALBUTEROL SULF HFA 90MCG INH 200DOSE IN SCH ×3 (05:57→21:38)
[2019-09-24] MEDS: ACCU-CHEK COMFORT CURVE STRIP VI SCH ×4 (05:58→21:41)
[2019-09-24] MEDS: InsuLIN REG 1unit/0.01ml Soln (100units/ml) SC SCH ×4 (06:00→21:40)
[2019-09-24] MEDS: cefTRIAXone 1GM/50ML D5W 50 ML IV SCH (09:52)
[2019-09-24] MEDS: PANTOPRAZOLE 40 MG TAB PO SCH (09:53)
[2019-09-24] MEDS: methylPREDNISolone SOD SUCC 40 MG/ML VL IV SCH (09:53)
[2019-09-24] MEDS: FUROSEMIDE 20 MG/2 ML VIAL IV SCH (09:53)
[2019-09-24] MEDS: ZINC SULFATE 220mg CAP or TAB PO SCH (09:53)
[2019-09-24] MEDS: CHOLECALCIFEROL (VITD3) 1,000IU=25mCg TAB PO SCH (09:54)
[2019-09-24] MEDS: ASCORBIC ACID 1,000 MG TAB PO SCH (09:54)
[2019-09-24] MEDS: ENOXAPARIN SOD 100 MG/1 ML SYRINGE SC SCH (09:55)
[2019-09-24 13:00] VITALS: BP 143/87
[2019-09-24 17:00] VITALS: BP 134/87
[2019-09-24] MEDS: REMDESIVIR 100mg in NS 230ml DAILYx4DAYS (NO VENT) IV SCH (18:21)
[2019-09-24 19:03] VITALS: BP 134/87
[2019-09-24] MEDS: ROPINIROLE 0.25 MG PO SCH (21:38)
[2019-09-24] MEDS: SOTALOL HCL 80 MG TAB PO SCH (21:39)
[2019-09-24] MEDS: MAGNESIUM OXIDE 400 MG TAB PO SCH (21:40)
[2019-09-24] MEDS: INSULIN LANTUS (GLARGINE) 1 /0.01ml (100units/ml) SC SCH (21:41)
[2019-09-24] MEDS: TEMAZEPAM 15 MG CAP PO PRN (21:42)
[2019-09-25 05:03] VITALS: BP 123/67
[2019-09-25] MEDS: InsuLIN REG 1unit/0.01ml Soln (100units/ml) SC SCH ×3 (05:35→17:00)
[2019-09-25] MEDS: ALBUTEROL SULF HFA 90MCG INH 200DOSE IN SCH ×2 (05:35→15:17)
[2019-09-25] MEDS: ACCU-CHEK COMFORT CURVE STRIP VI SCH ×3 (05:35→17:00)
[2019-09-25 06:58] LABS: Albumin 3.3 g/dL (3.4-5.0); BUN/Creatinine Ratio 11.5; Calcium 8.1 mg/dL (8.5-10.1); Potassium 3.6 mmol/L (3.5-5.1)
[2019-09-25 07:14] LABS: Bilirubin, Total 0.6 mg/dL (0.2-1.0); Total Protein 7.4 g/dL (6.4-8.2)
[2019-09-25] MEDS: cefTRIAXone 1GM/50ML D5W 50 ML IV SCH (09:52)
[2019-09-25] MEDS: FUROSEMIDE 20 MG/2 ML VIAL IV SCH (09:53)
[2019-09-25] MEDS: ZINC SULFATE 220mg CAP or TAB PO SCH (09:54)
[2019-09-25] MEDS: ASCORBIC ACID 1,000 MG TAB PO SCH (09:56)
[2019-09-25] MEDS: PANTOPRAZOLE 40 MG TAB PO SCH (09:56)
[2019-09-25] MEDS: SOTALOL HCL 80 MG TAB PO SCH (09:56)
[2019-09-25] MEDS: MAGNESIUM OXIDE 400 MG TAB PO SCH (09:56)
[2019-09-25] MEDS: CHOLECALCIFEROL (VITD3) 1,000IU=25mCg TAB PO SCH (09:57)
[2019-09-25] MEDS ORDERED: ENOXAPARIN SOD 100 MG/1 ML SYRINGE SC SCH (10:00)
[2019-09-25] MEDS ORDERED: predniSONE 20 MG TAB PO SCH ×2 (10:00)
[2019-09-25 13:00] VITALS: BP 142/99
[2019-09-25] MEDS ORDERED: ASCO10003 PO (14:03)
[2019-09-25] MEDS ORDERED: POTA-167 PO (14:03)
[2019-09-25] MEDS ORDERED: FURO1TAB33 PO (14:03)
[2019-09-25] MEDS ORDERED: PANT40TA2 PO (14:03)
[2019-09-25] MEDS ORDERED: LEVO500T21 PO (14:03)
[2019-09-25] MEDS ORDERED: ZINC220T6 PO (14:03)
[2019-09-25] MEDS ORDERED: METH4PAK PO (14:03)
[2019-09-25] MEDS ORDERED: MET25T PO (15:07)
[2019-09-25] MEDS ORDERED: APIX5TAB PO (15:07)
[2019-09-25 16:10] VITALS: BP 142/99
[2019-09-25 17:00] VITALS: BP 124/79
[2019-09-25] MEDS ORDERED: REMDESIVIR 100mg in NS 230ml DAILYx4DAYS (NO VENT) IV SCH (17:00)
== END 2019-09-25 19:50 | disposition home or self-care (01) | DRG 871 ==
LOC: EDBD 14:20 → ER 14:20 → TELE 14:21 → TELE-EAST 23:17
PROVIDERS: ADMIT Nurse Practitioner Acute Care; ATTEND Internal Medicine
DX: A41.51 Sepsis due to Escherichia coli [E. coli] (principal); U07.1 COVID-19; J12.89 Other viral pneumonia; J96.01 Acute respiratory failure with hypoxia; E44.1 Mild protein-calorie malnutrition; E87.3 Alkalosis; F11.20 Opioid dependence, uncomplicated; N30.01 Acute cystitis with hematuria; D64.9 Anemia, unspecified; E11.65 Type 2 diabetes mellitus with hyperglycemia; E66.01 Morbid (severe) obesity due to excess calories; E78.5 Hyperlipidemia, unspecified; G47.33 Obstructive sleep apnea (adult) (pediatric); G62.9 Polyneuropathy, unspecified; G89.29 Other chronic pain; I10 Essential (primary) hypertension; F32.9 Major depressive disorder, single episode, unspecified; I48.91 Unspecified atrial fibrillation; F41.9 Anxiety disorder, unspecified; Z68.38 Body mass index [BMI] 38.0-38.9, adult; Z79.84 Long term (current) use of oral hypoglycemic drugs; Z79.899 Other long term (current) drug therapy; Z80.9 Family history of malignant neoplasm, unspecified; Z81.1 Family history of alcohol abuse and dependence; Z85.72 Personal history of non-Hodgkin lymphomas; Z88.0 Allergy status to penicillin; Z88.2 Allergy status to sulfonamides; I25.2 Old myocardial infarction
CPT/HCPCS: 36415; 36600; 71045; 71275; 80048; 80053; 81001; 82728; 82805; 82962; 83605; 83615; 83735; 83880; 84443; 84484; 85025; 85379; 85610; 85730; 86141; 87040; 87070; 87086; 87088; 87186; 87804; 87880; 93005; 93970; 94640; 96365; 96366; 96368; G0378; J0696; J1815; J2185; J2405

== ENCOUNTER 2022-02-08 04:29 | Emergency (ER) | payer MEDICARE, OTHER ==
[~2022-02-08] VITALS: Ht 165.1 cm; Wt 113.8 kg
[~2022-02-08 04:29] MED LIST changes: +APIX5TAB PO; +ASCO10003 PO; +EMPA1TAB PO; +FURO1TAB33 PO; +LEVO500T31 PO; +MET25T PO; +METF-370 PO; +METH4PAK PO; +PANT40TA2 PO; +POTA-167 PO; -SERT100T PO; +SERT50TA19 PO; +ZINC220T6 PO
[2022-02-08 06:09] LABS: Basophils # (auto) 0.1 10 ^3/uL (0-0.2); Basophils % (auto) 1.1 % (0.0-2.0); Eosinophils # (auto) 0.2 10 ^3/uL (0-0.8); Eosinophils % (auto) 2.1 % (0.0-7.0); Hematocrit 43.4 % (36.0-46.0); Hemoglobin 14.5 g/dL (12.2-16.2); Lymphocytes # (auto) 2.8 10 ^3/uL (0.4-5.4); Lymphocytes % (auto) 30.9 % (10.0-50.0); Mean Corpuscular Hgb Conc. 33.4 g/dL (32.0-36.0); Mean Corpuscular Volume 83.9 fL (80.0-100.0); Monocytes # (auto) 0.4 10 ^3/uL (0-1.3); Monocytes % (auto) 4.9 % (0.0-12.0); Neutrophils # (auto) 5.6 10 ^3/uL (1.6-8.6); Red Blood Cells 5.18 10^6/uL (4.0-5.20); Red Cell Distribution Width 15.4 % (11.8-14.3); White Blood Cell 9.2 10^3/uL (4.4-10.8)
[2022-02-08 06:32] LABS: Albumin 3.6 g/dL (3.4-5.0); Calcium 9.2 mg/dL (8.5-10.1); Potassium 5.3 mmol/L (3.5-5.1)
[2022-02-08 06:36] LABS: Magnesium 1.6 mg/dL (1.6-2.6)
[2022-02-08 06:39] LABS: Bilirubin, Total 0.2 mg/dL (0.2-1.0); Total Protein 7.6 g/dL (6.4-8.2)
[2022-02-08] MEDS ORDERED: SODIUM CHLORIDE 0.9% 1,000 ML IV ONE (07:30)
[2022-02-08 09:21] LABS: Urine Bacteria FEW /hpf (None Seen); Urine Blood Negative /uL (Negative); Urine Hyaline Cast MOD /lpf (0 - 2); Urine Mucus FEW (None Seen); Urine Specific Gravity 1.027 (1.001-1.035); Urine WBC 4 /hpf (0 - 5)
[2022-02-08] MEDS ORDERED: INSULIN LISPRO (HUMAN) 100 UNITS/ML ML SC ONE (10:00)
[2022-02-08] MEDS ORDERED: DexAMETHasone SOD PHOS 10MG/1ML VIAL INJ IV ONE (10:00)
[2022-02-08 12:20] VITALS: BP 121/71
[2022-02-08] MEDS ORDERED: CYCL-837 PO (12:23)
[2022-02-08] MEDS ORDERED: DEX4T PO (12:23)
[2022-02-08] MEDS ORDERED: HYDR-4902 PO (12:23)
== END 2022-02-08 15:05 | disposition home or self-care (01) ==
LOC: ER 04:29
DX: M47.12 Other spondylosis with myelopathy, cervical region (principal); M47.22 Other spondylosis with radiculopathy, cervical region; M75.32 Calcific tendinitis of left shoulder; E87.5 Hyperkalemia; E11.21 Type 2 diabetes mellitus with diabetic nephropathy; E11.65 Type 2 diabetes mellitus with hyperglycemia; M62.838 Other muscle spasm; K21.9 Gastro-esophageal reflux disease without esophagitis; I25.2 Old myocardial infarction; Z88.0 Allergy status to penicillin; Z88.2 Allergy status to sulfonamides
CPT/HCPCS: 36415; 71045; 72125; 72141; 73030; 80053; 81001; 82962; 83735; 83880; 84484; 85025; 96372; 96374; 99285; J1100; J7030

== ENCOUNTER 2024-03-07 14:10 | Inpatient (IN) | payer BC, MEDICARE, OTHER ==
[~2024-03-07] VITALS: Ht 162.6 cm; Wt 109.8 kg
[~2024-03-07 14:10] MED LIST changes: +CYCL-837 PO; +DEX4T PO; +HYDR-4902 PO; +METH-1214 PO; -METH10T PO; -POTA-167 PO; +POTA-211 PO; +SERT-206 PO; -SERT50TA19 PO
--- NOTE | 2024-03-07 15:07 | DVH ---
CHEST RADIOGRAPH Indication: CHEST PAIN Technique: Single frontal view of the chest was obtained COMPARISON: CHEST PORTABLE on DOS: 02/08/22, EKG on DOS: 02/08/22, CXRP on DOS: 02/08/22 FINDINGS: Lines and Tubes: None Lungs: Mild congestion Pleura: No effusion. No pneumothorax. Cardiomediastinal contours: Unremarkable Bones: Unremarkable IMPRESSION: Mild congestion
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
[2024-03-07 15:33] LABS: Basophils # (auto) 0 10 ^3/uL (0-0.2); Basophils % (auto) 0.4 % (0.0-2.0); Eosinophils # (auto) 0 10 ^3/uL (0-0.8); Eosinophils % (auto) 0.6 % (0.0-7.0); Hematocrit 39.4 % (36.0-46.0); Hemoglobin 13.4 g/dL (12.2-16.2); Lymphocytes % (auto) 13.9 % (10.0-50.0); Mean Corpuscular Hemoglobin 29.5 pg (28.0-32.0); Mean Corpuscular Hgb Conc. 33.9 g/dL (32.0-36.0); Mean Corpuscular Volume 87.1 fL (80.0-100.0); Monocytes # (auto) 0.5 10 ^3/uL (0-1.3); Monocytes % (auto) 6.7 % (0.0-12.0); Neutrophils # (auto) 5.4 10 ^3/uL (1.6-8.6); Neutrophils % (auto) 78.4 % (37.0-80.0); Nucleated Red Blood Cells % 0.1 %; Platelet Count (auto) 133 10^3/uL (140-450); Red Blood Cells 4.53 10^6/uL (4.0-5.20); Red Cell Distribution Width 15.4 % (11.8-14.3); White Blood Cell 6.9 10^3/uL (4.4-10.8)
[2024-03-07] MEDS: IOHEXOL 300 MG/ML 100ML BOTTLE IJ ONE (15:48)
[2024-03-07 15:51] LABS: Alanine Aminotransferase 19 U/L (7-40); Albumin 3.9 g/dL (3.2-4.8); Alkaline Phosphatase 76 U/L (46-116); Anion Gap 5 (5-15); Aspartate Aminotransferase 11 U/L (13-40); Blood Urea Nitrogen 17 mg/dL (9-23); Calcium 9.4 mg/dL (8.7-10.4); Carbon Dioxide 28 mmol/L (20-31); Chloride 100 mmol/L (98-107); INR 1.09 (0.9-1.15); Magnesium 1.1 mg/dL (1.6-2.6); Partial Thromboplastin Time 27.9 SEC (24.5-34.5); Potassium 4.9 mmol/L (3.5-5.1); Prothrombin Time 11.5 sec (9.3-11.8); Sodium 133 mmol/L (136-145)
[2024-03-07 15:52] LABS: Bilirubin, Total 0.4 mg/dL (0.2-1.0)
[2024-03-07 16:01] LABS: Glucose 418 mg/dL (74-106)
--- NOTE | 2024-03-07 16:21 | DVH ---
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 All CT scans at this medical facility are performed using dose modulation techniques as appropriate t o a performed exam including the following: Automated exposure control was utilized; adjustment of th e MA and/or KV according to patient size; and use of iterative reconstruction technique. CT Dose: CTDI volume is 56 mGy. Dose-length product is 1014 mGy*cm FINDINGS: CT images are mildly degraded by motion artifact. There is no evidence of acute intracranial hemorrha ge, mass, mass effect midline shift. There is no hydrocephalus or extra-axial fluid collection. There are mild patchy hypodense areas in the supratentorial white matter compatible with chronic microvasc ular ischemic changes. Hale-white matter differentiation is maintained.. There are sella turcica post surgical changes noted. The visualized paranasal sinuses and mastoid air cells are clear. The calvarium is intact. IMPRESSION: 1. No acute intracranial process. 2. There are postsurgical changes noted in the sella turcica. If clinically warranted, further evalua tion with MRI brain and pituitary study with contrast is recommended. HS:Y
--- NOTE | 2024-03-07 16:34 | DVH ---
Exam: CT CT CHEST/AB/PL W CON- IV ONLY History: TRAUMA Comparison Study: None available at time of dictation. TECHNIQUE: Multidetector CT of the abdomen was performed from lung bases to pubic symphysis. Imaging was performed without IV contrast. Axial, coronal and sagittal multiplanar reformats were obtained fr om the axial data set by the technologist. Radiation Dose Information: CT Dose: CTDI volume is 26.6 mGy. Dose-length product is 1720.1 mGy*cm Omnipaque 300: 100 mL FINDINGS: Evaluation of solid organs is limited due to lack of intravenous contrast use. Findings: Lung Bases: No acute or significant lung base finding. Normal heart size. No pleural or pericardial effusion. Liver: The liver is normal in size. No focal lesions. Gallbladder and Biliary Tree: Sludge or small stones in the gallbladder. Spleen: Unremarkable Pancreas: The pancreas is grossly normal in appearance. Adrenal Glands: Unremarkable Kidneys: Questionable small 17 x 19 mm growth off the upper medial aspect of the right kidney conside r renal ultrasound or MRI for further evaluation. Bladder: Grossly unremarkable for degree of distention. Bowel: The stomach is grossly normal in appearance. Small bowel and colon are normal in caliber and d istribution. The appendix is not visualized; however, no secondary findings of acute appendicitis id entified. Ascites: Absent Lymphadenopathy: No mesenteric, retroperitoneal or periportal lymphadenopathy. Abdominal Wall and Mesentery: Unremarkable. Vasculature: The visualized abdominal aorta is normal in size and caliber. Evaluation of abdominal a nd pelvic vessels is limited due to lack of intravenous contrast. Pelvic Organs: Unremarkable Musculoskeletal: No aggressive focal bony lesions, acute fractures or dislocation. Healing rib fractu re right 10th rib no pleural thickening no pleural effusions no pneumothorax. Soft tissues: Unremarkable IMPRESSION: 1. No acute abdominal or pelvic finding. 2. No acute fractures 3. No vascular injury or solid organ injury. 4. No free fluid or free air. Radiation optimization: All CT scans at this facility use at least one of these dose optimization faustino hniques: automated exposure control mA and/or kV adjustment per patient size (includes targeted exam s where dose is matched to clinical indication) or iterative reconstruction. HS:Y
[2024-03-07] MEDS ORDERED: MAGNESIUM SULFATE 1GM/100ML 100 ML IV SCH (17:00)
[2024-03-07] MEDS: KETOROLAC TROMETH 30 MG/ML 1ML VIAL IV ONE (19:30)
[2024-03-07 19:36] VITALS: PULSE 110; RESP 22; O2SAT 98
[2024-03-07] MEDS: InsuLIN REG 1unit/0.01ml Soln (100units/ml) IV ONE (20:00)
[2024-03-07] MEDS: ACETAMINOPHEN 500 MG TAB PO ONE (20:04)
[2024-03-07] MEDS ORDERED: MORPHINE SULFATE INJ 2 MG/ml SYRG IV PRN (20:45)
[2024-03-07] MEDS ORDERED: DOCUSATE SOD 100 MG CAP PO PRN (20:45)
[2024-03-07] MEDS ORDERED: NITROGLYCERIN 0.4 MG SL TAB SL PRN (20:45)
[2024-03-07] MEDS: SODIUM CHLORIDE 0.9% 500 ML IV ONE (21:30)
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
[2024-03-07] MEDS ORDERED: DEXTROSE (50%) 50ML SYRG IV PRN (21:45)
[2024-03-07] MEDS: INSULIN LANTUS (GLARGINE) 1 /0.01ml (100units/ml) SC ONE (21:45)
[2024-03-07] MEDS: SODIUM CHLOR 0.9% PF (SALINE LOCK) 10ML VIAL/SYR IV SCH (21:48)
[2024-03-07] MEDS ORDERED: hydrALAZINE HCL 20 MG/ML VL IV PRN (22:00)
[2024-03-07] MEDS: ENOXAPARIN SOD 40 MG/0.4 ML SYRINGE SC ONE (23:37)
[2024-03-07] MEDS: InsuLIN REG 1unit/0.01ml Soln (100units/ml) SC SCH (23:39)
[2024-03-07] MEDS: INSULIN LANTUS (GLARGINE) 1 /0.01ml (100units/ml) SC SCH (23:40)
[2024-03-07] MEDS: cefTRIAXone 1GM/50ML D5W 50 ML IV ONE (23:40)
[2024-03-07] MEDS: ACCU-CHEK COMFORT CURVE STRIP VI SCH (23:45)
[2024-03-08] MEDS: AZITHROMYCIN 500MG/ 250ML 250 ML IV ONE (00:30)
[2024-03-08] MEDS: SODIUM CHLORIDE 0.9% 1,000 ML IV SCH (00:30)
[2024-03-08] MEDS: ACETAMINOPHEN 325 MG TAB PO PRN (00:52)
[2024-03-08] MEDS: MAGNESIUM SULFATE 1GM/100ML 100 ML IV SCH (03:12)
[2024-03-08 03:37] VITALS: PULSE 78; RESP 13; O2SAT 95
--- NOTE | 2024-03-08 06:45 | ECG ---
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
[2024-03-08 06:57] LABS: Basophils # (auto) 0 10 ^3/uL (0-0.2); Basophils % (auto) 0.5 % (0.0-2.0); Eosinophils # (auto) 0.1 10 ^3/uL (0-0.8); Eosinophils % (auto) 1.3 % (0.0-7.0); Hematocrit 41.5 % (36.0-46.0); Hemoglobin 13.8 g/dL (12.2-16.2); Lymphocytes # (auto) 1.6 10 ^3/uL (0.4-5.4); Lymphocytes % (auto) 23.4 % (10.0-50.0); Mean Corpuscular Hemoglobin 29.1 pg (28.0-32.0); Mean Corpuscular Hgb Conc. 33.4 g/dL (32.0-36.0); Mean Corpuscular Volume 87.2 fL (80.0-100.0); Monocytes # (auto) 0.4 10 ^3/uL (0-1.3); Monocytes % (auto) 6.6 % (0.0-12.0); Neutrophils # (auto) 4.6 10 ^3/uL (1.6-8.6); Neutrophils % (auto) 68.2 % (37.0-80.0); Nucleated Red Blood Cells % 0.1 %; Platelet Count (auto) 143 10^3/uL (140-450); Red Blood Cells 4.75 10^6/uL (4.0-5.20); Red Cell Distribution Width 15.7 % (11.8-14.3); White Blood Cell 6.7 10^3/uL (4.4-10.8)
[2024-03-08 07:00] LABS: Alanine Aminotransferase 19 U/L (7-40); Albumin 4.1 g/dL (3.2-4.8); Alkaline Phosphatase 74 U/L (46-116); Anion Gap 7 (5-15); Aspartate Aminotransferase 13 U/L (13-40); Bilirubin, Total 0.4 mg/dL (0.2-1.0); Calcium 9.7 mg/dL (8.7-10.4); Carbon Dioxide 29 mmol/L (20-31); Chloride 101 mmol/L (98-107); Glucose 224 mg/dL (74-106); Sodium 137 mmol/L (136-145); Total Protein 7.1 g/dL (5.7-8.2)
[2024-03-08] MEDS: InsuLIN REG 1unit/0.01ml Soln (100units/ml) SC SCH (07:05)
[2024-03-08 07:10] LABS: BUN/Creatinine Ratio 9.5 (10.0-20.0); Blood Urea Nitrogen 10 mg/dL (9-23)
[2024-03-08 08:00] VITALS: PULSE 77; RESP 14; O2SAT 92
[2024-03-08 08:38] LABS: COVID19 ANTIGEN SOFIA FIA NEGATIVE (NEGATIVE); Rapid Influenza A Negative (Negative); Rapid Influenza B Negative (Negative)
[2024-03-08] MEDS: cefTRIAXone 1GM/50ML D5W 50 ML IV SCH (09:18)
[2024-03-08 09:54] LABS: Urine Bacteria FEW /hpf (None Seen); Urine Blood 2+ /uL (Negative); Urine Clarity Ex.Turbid (Clear); Urine Color Light-Brown (Yellow); Urine Mucus FEW (None Seen); Urine Protein, UAD TRACE (Negative); Urine Specific Gravity 1.012 (1.001-1.035); Urine Urobilinogen Normal (Negative); Urine WBC 2354 /hpf (0 - 5); Urine WBC Clumps PRESENT /hpf (None Seen); Urine pH 5.5 (5.0-9.0)
[2024-03-08] MEDS: FUROSEMIDE 20 MG TAB PO SCH (09:59)
[2024-03-08] MEDS: APIXABAN 5 MG TAB PO SCH (10:00)
[2024-03-08] MEDS: METOPROLOL TARTRATE 25 MG TAB PO SCH (10:00)
[2024-03-08] MEDS ORDERED: ENOXAPARIN SOD 40 MG/0.4 ML SYRINGE SC SCH ×2 (10:00)
[2024-03-08] MEDS: PANTOPRAZOLE 40 MG TAB PO SCH (10:00)
[2024-03-08] MEDS: SERTRALINE HCL 50 MG TAB PO SCH (10:01)
[2024-03-08] MEDS: AZITHROMYCIN 500MG/ 250ML 250 ML IV SCH (10:05)
[2024-03-08 10:07] LABS: Amphetamine Screen, Urine Neg (NEGATIVE); Barbiturate Scree,Urine Neg (NEGATIVE)
[2024-03-08 10:08] LABS: Benzodiazephine Screen, Urine Neg (NEGATIVE); Cannabinoid Screen, Urine Neg (NEGATIVE); Cocaine Screen, Urine Neg (NEGATIVE); Opiate Scree,Urine Neg (NEGATIVE); Phencyclidine Screen, Urine Neg (NEGATIVE)
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
[2024-03-08 17:21] VITALS: BP 140/61; PULSE 84; RESP 20; TEMP 98.3; O2SAT 93
[2024-03-08 19:27] VITALS: BP 140/61; PULSE 84; RESP 18; TEMP 98.3; O2SAT 93
[2024-03-08 20:00] VITALS: PULSE 87; PULSE 90; RESP 18; O2SAT 95
[2024-03-08 21:00] VITALS: BP 132/65; PULSE 90; RESP 18; TEMP 99.2; O2SAT 95
[2024-03-08] MEDS: ATORVASTATIN 20 MG TAB PO SCH (21:40)
[2024-03-08] MEDS: INSULIN LANTUS (GLARGINE) 1 /0.01ml (100units/ml) SC SCH (21:49)
[2024-03-08] MEDS: HYDROcodone-ACET 5/325MG TAB PO PRN (23:59)
[2024-03-09] VITALS (12 sets, daily range): BP systolic 99–152; BP diastolic 44–72; PULSE 74–101; RESP 1–19; TEMP 98.1–101.1; O2SAT 90–95
[2024-03-09] MEDS: ACCU-CHEK COMFORT CURVE STRIP VI SCH (00:02)
[2024-03-09] MEDS: InsuLIN REG 1unit/0.01ml Soln (100units/ml) SC SCH (00:04)
[2024-03-09 06:26] LABS: Anion Gap 6 (5-15); Basophils # (auto) 0 10 ^3/uL (0-0.2); Basophils % (auto) 0.3 % (0.0-2.0); Calcium 9.4 mg/dL (8.7-10.4); Carbon Dioxide 29 mmol/L (20-31); Chloride 103 mmol/L (98-107); Eosinophils # (auto) 0.1 10 ^3/uL (0-0.8); Eosinophils % (auto) 0.9 % (0.0-7.0); Hematocrit 38.1 % (36.0-46.0); Hemoglobin 12.9 g/dL (12.2-16.2); Mean Corpuscular Hemoglobin 29.1 pg (28.0-32.0); Mean Corpuscular Hgb Conc. 33.8 g/dL (32.0-36.0); Mean Corpuscular Volume 86.1 fL (80.0-100.0); Monocytes # (auto) 0.4 10 ^3/uL (0-1.3); Monocytes % (auto) 7.1 % (0.0-12.0); Neutrophils # (auto) 4.7 10 ^3/uL (1.6-8.6); Neutrophils % (auto) 75.7 % (37.0-80.0); Nucleated Red Blood Cells % 0.1 %; Platelet Count (auto) 131 10^3/uL (140-450); Red Blood Cells 4.43 10^6/uL (4.0-5.20); Red Cell Distribution Width 15.4 % (11.8-14.3); Sodium 138 mmol/L (136-145); White Blood Cell 6.2 10^3/uL (4.4-10.8)
[2024-03-09 06:31] LABS: Glucose 163 mg/dL (74-106)
[2024-03-09 06:32] LABS: BUN/Creatinine Ratio 9.2 (10.0-20.0); Blood Urea Nitrogen 9 mg/dL (9-23); Triglycerides 180 mg/dL (< 150)
[2024-03-09 06:33] LABS: LDL Cholesterol 76 mg/dL (< 100)
[2024-03-09 06:34] LABS: Cholesterol 144 mg/dL (< 200); HDL Cholesterol 40 mg/dL (40-59)
[2024-03-09] MEDS: MORPHINE SULFATE INJ 2 MG/ml SYRG IV PRN (08:31)
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
[2024-03-09] MEDS: FUROSEMIDE 40 MG/4 ML VIAL IV ONE (11:18)
--- NOTE | 2024-03-09 12:08 | DVH ---
CHEST RADIOGRAPH Indication: sob Technique: Single frontal view of the chest was obtained COMPARISON: XY CHEST PORTABLE on DOS: 03/07/24, CHEST PORTABLE on DOS: 02/08/22, EKG on DOS: 02/08/22 FINDINGS: Lines and Tubes: None Lungs: Clear Pleura: No effusion. No pneumothorax. Cardiomediastinal contours: Unremarkable Bones: Unremarkable IMPRESSION: No acute disease.
[2024-03-09] MEDS: MAGNESIUM SULFATE 1GM/100ML 100 ML IV SCH ×2 (12:37→17:53)
[2024-03-09] MEDS: CEFEPIME 1GM/ 50ML 50 ML IV SCH (15:24)
--- NOTE | 2024-03-09 19:10 | DVHSR ---
APPROVED REPORT EXAM: Two-dimensional and M-mode echocardiogram with Doppler and color Doppler. Blood Pressure: 140/59 mmHg INDICATION Shortness of breath Pulmonary congestion RISK FACTORS Obesity: Height: 5'4", Weight: 242 DIMENSIONS LVDd4.6 (3.8-5.7cm)LA (2D)3.8 (1.9-4.0cm)Aortic Root3.4 (2.0-3.7cm) LVDs2.8 (2.5-4.0cm)LA (MM) (1.9-4.0cm)Aortic Cusp Exc1.6 (1.5-2.0cm) EF (%) 60.0 (55-70%)Rt. Atrium (1.9-4.0cm)Asc. Aorta cm IVSd1.2 (0.7-1.1cm)RV (D) (1.8-2.4cm) PWd1.1 (0.7-1.1cm) Mitral Valve MitralMitral Stenosis E wave0.97m/sMV Mean GR.mmHg A wave0.85m/sMV Peak GR.mmHg E/A ratio1.12D MVAcm2 DECEL [id number] 1/2 Timems Aortic Valve Aortic ValveAortic Stenosis V11.11m/P[place]avi Mean GR.6mmHg V21.82m/[place] Peak GR.13mmHg LVOT Diameter1.8 (1.8-2.4cm)Doppler AVA1.55cm2 Tricuspid Valve TR Velocity2.78m/s [id number] Other Information Technically limited study due to body habitus and patient position. Conclusion MILD LVH AND MILD LV DISTOLIC DYSFUNCTION LV EJECTION FRACTION IN RANGE OF 65% CALCIFIED AORTIC LEAFLETS AORTIC VALVE AREA IS 1.55 CMSQUARE BORDERLINE MILD AORTIC STENOSIS NORMAL RV FUNCTION NO EFFUSION
[2024-03-10] VITALS (12 sets, daily range): BP systolic 102–140; BP diastolic 53–73; PULSE 16–81; RESP 14–90; TEMP 97.1–98.3; O2SAT 90–99
[2024-03-10 06:59] LABS: Chloride 101 mmol/L (98-107); Potassium 4.1 mmol/L (3.5-5.1); Sodium 136 mmol/L (136-145)
[2024-03-10 07:00] LABS: Anion Gap 5 (5-15); Calcium 9.7 mg/dL (8.7-10.4); Carbon Dioxide 30 mmol/L (20-31)
[2024-03-10 07:05] LABS: BUN/Creatinine Ratio 8.4 (10.0-20.0); Blood Urea Nitrogen 8 mg/dL (9-23); Glucose 161 mg/dL (74-106); Magnesium 1.8 mg/dL (1.6-2.6)
[2024-03-10] MEDS: LEVALBUTEROL HCL 1.25 MG/3 ML NEB NEB PRN (07:16)
[2024-03-10] MEDS: IPRATROPIUM BROM 0.5 MG/2.5ML INH SOL NEB PRN (07:16)
[2024-03-10 10:28] LABS: Hepatitis B Surface Antigen Negative (Negative)
[2024-03-10 10:50] LABS: Hepatitis C Antibody Negative (Negative)
--- NOTE | 2024-03-10 14:09 | ECG ---
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
--- NOTE | 2024-03-10 16:07 | DVH ---
CLINICAL INFORMATION: 64 years old, Female; shortness of breath. Pulmonary vascular congestion. TECHNIQUE: Single AP portable chest radiograph was obtained. COMPARISON: XY CHEST PORTABLE on DOS: 03/09/24, XY CHEST PORTABLE on DOS: 03/07/24, CHEST PORTABLE on DOS: 02/08/22 FINDINGS: Lungs: Mild atelectasis in the lung bases. No focal consolidation. Cardiac: Heart size is within normal limits. Pulmonary vasculature: Mild prominence of the pulmonary vasculature. Mediastinum/mary: Unremarkable. Bones: No acute osseous abnormality identified. Other: No other significant findings. IMPRESSION: 1. Mild prominence of the pulmonary vasculature, may be seen with a mild degree of pulmonary vascular congestion in the appropriate clinical setting. 2. Mild bibasilar atelectasis without focal consolidation visualized.
[2024-03-10] MEDS: FUROSEMIDE 40 MG/4 ML VIAL IV ONE (18:03)
[2024-03-11] VITALS (9 sets, daily range): BP systolic 97–140; BP diastolic 57–66; PULSE 61–90; RESP 18–20; TEMP 97.8–98.3; O2SAT 92–100
[2024-03-11] MEDS: diphenhdrAMINE HCL 25 MG CAP PO ONE (01:12)
[2024-03-11 07:06] LABS: Anion Gap 7 (5-15); Calcium 9.8 mg/dL (8.7-10.4); Carbon Dioxide 29 mmol/L (20-31); Chloride 101 mmol/L (98-107); Potassium 3.2 mmol/L (3.5-5.1); Sodium 137 mmol/L (136-145)
[2024-03-11 07:08] LABS: Basophils # (auto) 0 10 ^3/uL (0-0.2); Basophils % (auto) 0.4 % (0.0-2.0); Eosinophils # (auto) 0.1 10 ^3/uL (0-0.8); Eosinophils % (auto) 3.1 % (0.0-7.0); Hematocrit 36.3 % (36.0-46.0); Hemoglobin 12.6 g/dL (12.2-16.2); Lymphocytes # (auto) 1.6 10 ^3/uL (0.4-5.4); Lymphocytes % (auto) 34.7 % (10.0-50.0); Mean Corpuscular Hemoglobin 29.8 pg (28.0-32.0); Mean Corpuscular Hgb Conc. 34.7 g/dL (32.0-36.0); Mean Corpuscular Volume 85.8 fL (80.0-100.0); Monocytes # (auto) 0.5 10 ^3/uL (0-1.3); Monocytes % (auto) 10.2 % (0.0-12.0); Neutrophils # (auto) 2.3 10 ^3/uL (1.6-8.6); Neutrophils % (auto) 51.6 % (37.0-80.0); Nucleated Red Blood Cells % 0.1 %; Platelet Count (auto) 128 10^3/uL (140-450); Red Blood Cells 4.24 10^6/uL (4.0-5.20); Red Cell Distribution Width 15.5 % (11.8-14.3); White Blood Cell 4.5 10^3/uL (4.4-10.8)
[2024-03-11 07:12] LABS: BUN/Creatinine Ratio 11.3 (10.0-20.0); Blood Urea Nitrogen 11 mg/dL (9-23); Glucose 156 mg/dL (74-106)
[2024-03-11] MEDS: POTASSIUM CHL 20 Meq TABLET PO ONE ×3 (10:34→11:45)
[2024-03-11] MEDS: FUROSEMIDE 40 MG/4 ML VIAL IV ONE (11:44)
[2024-03-11] MEDS ORDERED: CEPH250C PO (13:45)
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
[2024-03-11] MEDS ORDERED: LEVO500T91 PO (16:39)
== END 2024-03-11 15:00 | disposition home or self-care (01) | DRG 871 ==
LOC: EDBD 14:10 → ER 14:10 → EDUNIT# 14:10 → TELE 20:31 → TELE-CENTR 03-08 17:32 → CENTRAL 03-11 08:58
PROVIDERS: ADMIT Student in an Organized Health Care Education/Training Program
PROC: 5A09357 Assistance with Respiratory Ventilation, Less than 24 Consecutive Hours, Continuous Positive Airway Pressure (ICD-10-PCS; principal; 2024-03-09)
DX: A41.50 Gram-negative sepsis, unspecified (principal); J12.9 Viral pneumonia, unspecified; J96.01 Acute respiratory failure with hypoxia; J15.69 Pneumonia due to other Gram-negative bacteria; J15.9 Unspecified bacterial pneumonia; N17.9 Acute kidney failure, unspecified; Z68.41 Body mass index [BMI] 40.0-44.9, adult; N30.00 Acute cystitis without hematuria; Z20.822 Contact with and (suspected) exposure to COVID-19; E11.65 Type 2 diabetes mellitus with hyperglycemia; S20.212A Contusion of left front wall of thorax, initial encounter; F32.A Depression, unspecified; K21.9 Gastro-esophageal reflux disease without esophagitis; E83.42 Hypomagnesemia; E11.40 Type 2 diabetes mellitus with diabetic neuropathy, unspecified; E78.5 Hyperlipidemia, unspecified; D69.6 Thrombocytopenia, unspecified; E66.01 Morbid (severe) obesity due to excess calories; I48.0 Paroxysmal atrial fibrillation; I11.9 Hypertensive heart disease without heart failure; V89.2XXA Person injured in unspecified motor-vehicle accident, traffic, initial encounter; Y92.410 Unspecified street and highway as the place of occurrence of the external cause; Z88.0 Allergy status to penicillin; Z88.2 Allergy status to sulfonamides; I25.2 Old myocardial infarction; Z85.72 Personal history of non-Hodgkin lymphomas
CPT/HCPCS: 36415; 70450; 71045; 71260; 74177; 80048; 80053; 80061; 80307; 80320; 81001; 82306; 82607; 82962; 83036; 83605; 83735; 83880; 84443; 84484; 85025; 85610; 85730; 86803; 87040; 87070; 87081; 87086; 87205; 87340; 87426; 87804; 93005; 93306; 94640; 94660; 96372; 96374; 97163; 99291; G0378; J1815; J1885

== ENCOUNTER 2024-05-02 20:16 | Inpatient (IN) | payer BC, MEDICARE ==
[~2024-05-02] VITALS: Ht 162.6 cm; Wt 89.0 kg
[~2024-05-02 20:16] MED LIST changes: -DEX4T PO; -LEVO500T31 PO; +LEVO500T91 PO; -METH4PAK PO
[2024-05-02 20:59] LABS: Basophils # (auto) 0.1 10 ^3/uL (0-0.2); Basophils % (auto) 0.6 % (0.0-2.0); Eosinophils # (auto) 0 10 ^3/uL (0-0.8); Eosinophils % (auto) 0.2 % (0.0-7.0); Hematocrit 45.8 % (36.0-46.0); Hemoglobin 14.9 g/dL (12.2-16.2); Lymphocytes # (auto) 1.7 10 ^3/uL (0.4-5.4); Mean Corpuscular Hemoglobin 28.8 pg (28.0-32.0); Mean Corpuscular Hgb Conc. 32.5 g/dL (32.0-36.0); Mean Corpuscular Volume 88.5 fL (80.0-100.0); Monocytes # (auto) 0.8 10 ^3/uL (0-1.3); Monocytes % (auto) 5.7 % (0.0-12.0); Neutrophils # (auto) 11.5 10 ^3/uL (1.6-8.6); Neutrophils % (auto) 81.5 % (37.0-80.0); Platelet Count (auto) 256 10^3/uL (140-450); Red Blood Cells 5.17 10^6/uL (4.0-5.20); Red Cell Distribution Width 14.9 % (11.8-14.3); White Blood Cell 14.1 10^3/uL (4.4-10.8)
--- NOTE | 2024-05-02 21:06 | ED.PDOC ---
Altered Mental Status HPI Comments 64 year old female came to ER via EMS due to ALOC. Per EMS, initial call came in for fall injury. Upon arrival, patient was noted to be confused, altered, speaking incomprehensible words. Blood sugar taken read "high". No further information could be taken from the patient at this time. Chief Complaint: ALOC Time Seen by MD: 21:06 Primary Care Provider: KIM Camacho Notes: Spark Tester Notes Allergies: Coded Allergies: Latex (Verified Allergy, Mild, 03/08/24) RASH Penicillins (Verified Allergy, Unknown, 03/08/24) Sulfa Antibiotics (Verified Allergy, Unknown, 03/08/24) Home Meds Active Scripts Levofloxacin Hemihydrate (LEVAQUIN 500 MG) 500 Mg Tab, 1.5 TAB PO DAILY for 7 Days, #11 TAB Prov:CHE YOON RESIDENT 03/11/24 Cyclobenzaprine Hcl (Cyclobenzaprine Hcl) 5 Mg Tab, 1 TAB PO TID for 5 Days, #15 TAB Prov:NAY GARCIAS MD 02/08/22 Hydrocodone-Acetaminophen (Hydrocodone Bitartrate/AC 5-325 mg) 1 Tab Tab, 1 TAB PO TID for 5 Days, #15 TAB Prov:NAY GARCIAS MD 02/08/22 Metoprolol Tartrate (Lopressor) 25 Mg Tb, 12.5 MG PO Q12HR, #60 TAB 0 Refills Prov:INO GRANADOS MD 09/25/19 Apixaban Base (ELIQUIS) 5 Mg Tab, 5 MG PO BID, #60 TAB Prov:INO GRANADOS MD 09/25/19 Ascorbic Acid (Gnp Vitamin C W/Mary Hips) 1,000 Mg Tab, 1000 MG PO DAILY, #30 TAB Prov:INO GRANADOS MD 09/25/19 Pantoprazole Sodium Sesquihydr (Protonix) 40 Mg Tab, 40 MG PO DAILY, #30 TAB Prov:INO GRANADOS MD 09/25/19 Potassium Chloride (Klor-Con 10) 10 Meq Tab, 10 MEQ PO DAILY, #3 TAB Prov:INO GRANADOS MD 09/25/19 Furosemide (Lasix) 20 Mg Tb, 1 TAB PO DAILY, #3 TAB 1 Refill Prov:INO GRANADOS MD 09/25/19 Zinc Sulfate (Zinc Sulfate) 220 Mg Tab, 220 MG PO DAILY, #14 TAB Prov:INO GRANADOS MD 09/25/19 Reported Medications Empagliflozin (Jardiance) 10 Mg Tab, 10 MG PO DAILY, TAB 09/18/19 Metformin Hydrochloride (Metformin Hcl) 500 Mg Tab, 500 MG PO BID for 30 Days, MG 09/18/19 Sertraline Hcl (Sertraline Hcl) 50 Mg Tab, 100 MG PO DAILY for 30 Days, MG 09/18/19 Ropinirole Hydrochloride (Requip) 0.5 Mg Tab, 0.25 MG PO Q8HPRN, TAB 06/11/18 Glipizide (Glipizide) 10 Mg Tab, 1 TAB PO BID, #60 TAB 5 Refills 06/08/18 Tramadol Hcl (Tramadol Hcl) 50 Mg Tab, 50 MG PO Q6HP, MG 06/08/18 Gabapentin (Gabapentin) 600 Mg Tab, 600 MG PO TID for 30 Days, MG 06/08/18 Cabergoline (Cabergoline) 0.5 Mg Tab, 0.5 MG PO 2XW, TAB 06/08/18 Atorvastatin Calcium (ATORVASTATIN CALCIUM) 20 Mg Tab, 1 TAB PO DAILY, #30 TAB 5 Refills 06/08/18 Methadone Hcl (METHADONE HCL TABLET) 10 Mg Tb, 1 TAB PO DAILY, #120 TAB 06/08/18 Information Source: Emergency Med Personnel Mode of Arrival: EMS Severity: Unable to Care for Self, Unresponsive Timing: Minutes Duration: Since onset Prehospital treatment: Accucheck Quality: Decreased Alertness, Change in Behavior, Confusion Recent: Trauma (fall injury) History of: Diabetes Past Medical History PAST MEDICAL HISTORY: AFIB, Cancer, Depression, DM, GERD, HTN, MS Past Medical History (Other): Non Hodgkins Lymphoma BRIDGE MAINTAINER History: No Pertinent BRIDGE MAINTAINER History Family History Family History: Unknown Social History Smoker: Non-Smoker Alcohol: Denies ETOH Use Drugs: Denies Drug Use Lives In: Home Unable to Obtain due to: Altered Mental Status Physical Exam General Appearance: No Apparent Distress, Normal HEENT: Normal ENT Inspection, Pharynx Normal, TMs Normal Neck: Full Range of Motion, Non-Tender, Normal, Normal Inspection Respiratory: Chest Non-Tender, Lungs Clear, No Accessory Muscle Use, No Respiratory Distress, Normal Breath Sounds Cardiovascular: No Edema, No JVD, No Murmur, No Gallop, Normal Peripheral Pulses, Regular Rate/Rhythm Breast Exam: Deferred Gastrointestinal: No Organomegaly, Non Tender, No Pulsatile Mass, Normal Bowel Sounds, Soft Genitalia: Deferred Pelvic: Deferred Rectal: Deferred Extremities: No calf tenderness, Normal capillary refill, Normal inspection, Normal range of motion, Non-tender, No pedal edema Musculoskeletal : Apperance: Normal Neurologic: Alert, transplant nurse practitioner II-XII nml as Tested, No Motor Deficits, Normal Affect, Normal Mood, No Sensory Deficits Cerebellar Function: Normal Reflexes: Normal Skin: Dry, Normal Color, Warm Lymphatic: No Adenopathy Was a procedure done? Was a procedure done?: Yes Sedation Sedation?: Yes Informed consent obtained: No Sedation start time: 22:12 Sedation end time: 22:42 Sedation total time: 30 minutes Central Line Recorder of insertion practice: Observer Occupation of filler block inserter remover: Attending Physician Indication: Inability to obtain IV, Suspected infection Room prepared for procedure: Yes Compressor Station Engineer performed hand hygien: Yes Maximal sterile barrier precau: Mask/Eye shield, Sterile gown, Cap, Sterlie gloves, Large sterlie drape Skin Preparation: Providine iodine Skin preparation completely dr: Yes Insertion site: Internal jugular Central line catheter type: Tunneled- not dialysis Number of lumens: 3 Central line exchanged over a: Yes Antiseptic ointment applied to: Yes Post Assessment: Chest X-Ray Informed consent obtained: No Risks/benefits/alt described: No Intubation Indication: Altered Mental Status, Airway Protection Prep: Preoxygenation Pretreated with: Analgesia, Sedation Medicated with: Other (Etomidate, Rocuronium) Intubation Approach: Orotracheal Intubation size: cm (8.0) Informed consent obtained: No Risks/benefits/alt described: No Differential Diagnosis (ALOC) Differential Diagnosis: DKA, Encephalopathy, Hypoxemia, Closed Head Injury, Renal Failure X-Ray, Labs, Meds, VS Vital Signs Date Time Temp Pulse Resp B/P (MAP) Pulse Ox O2 Delivery O2 Flow Rate FiO2 05/02/24 22:49 150 16 110/79 (89) 90 100 05/02/24 22:44 97.8 158 16 120/52 97 100 97.8 05/02/24 22:12 77/47 05/02/24 20:16 98.0 140 18 134/82 (99) 94 Lab Test 05/02/24 23:05 05/02/24 21:29 05/02/24 20:39 Range/Units Lactic Acid Level 1.7 3.7 *H 0.4-2.0 mmol/L Troponin I High Sensitivity 31 12 9 </=34 ng/L White Blood Count 14.1 H 4.4-10.8 10^3/uL Red Blood Count 5.17 4.0-5.20 10^6/uL Hemoglobin 14.9 12.2-16.2 g/dL Hematocrit 45.8 36.0-46.0 % Mean Corpuscular Volume 88.5 80.0-100.0 fL Mean Corpuscular Hemoglobin 28.8 28.0-32.0 pg Mean Corpuscular Hemoglobin Concent 32.5 32.0-36.0 g/dL Red Cell Distribution Width 14.9 H 11.8-14.3 % Platelet Count 256 140-450 10^3/uL Mean Platelet Volume 8.4 6.9-10.8 fL Neutrophils (%) (Auto) 81.5 H 37.0-80.0 % Lymphocytes (%) (Auto) 12.0 10.0-50.0 % Monocytes (%) (Auto) 5.7 0.0-12.0 % Eosinophils (%) (Auto) 0.2 0.0-7.0 % Basophils (%) (Auto) 0.6 0.0-2.0 % Neutrophils # (Auto) 11.5 H 1.6-8.6 10 ^3/uL Lymphocytes # (Auto) 1.7 0.4-5.4 10 ^3/uL Monocytes # (Auto) 0.8 0-1.3 10 ^3/uL Eosinophils # (Auto) 0 0-0.8 10 ^3/uL Basophils # (Auto) 0.1 0-0.2 10 ^3/uL Nucleated Red Blood Cells 0.0 % Sodium Level 132 L 136-145 mmol/L Potassium Level 4.5 3.5-5.1 mmol/L Chloride Level 97 L 98-107 mmol/L Carbon Dioxide Level 23 20-31 mmol/L Anion Gap 12 5-15 Blood Urea Nitrogen 20 9-23 mg/dL Creatinine 1.54 H 0.550-1.02 mg/dL Glomerular Filtration Rate Calc 37 >90 mL/min BUN/Creatinine Ratio 13.0 10.0-20.0 Serum Glucose 667 *H 74-106 mg/dL Calcium Level 11.2 H 8.7-10.4 mg/dL Total Bilirubin 0.5 0.2-1.0 mg/dL Aspartate Amino Transferase (AST) 22 13-40 U/L Alanine Aminotransferase (ALT) 17 7-40 U/L Alkaline Phosphatase 84 46-116 U/L B-Type Natriuretic Peptide 18.11 0-100 pg/mL Total Protein 8.4 H 5.7-8.2 g/dL Albumin 4.7 3.2-4.8 g/dL Beta-Hydroxybutyric Acid 1.778 H < 0.4 mmol/L Current Medications Medications (Trade) Dose Ordered Sig/Suzette Route Start Time Stop Time Status Last Admin Sodium Chloride 1,000 ml @ 1,000 mls/hr Q1H ONCE IV 05/02/24 20:30 05/02/24 21:29 DC 05/02/24 21:37 Midazolam HCl (Versed Injection) 5 mg ONCE ONCE IV 05/02/24 21:30 05/02/24 21:32 DC 05/02/24 21:36 Sodium Chloride 1,000 ml @ 1,000 mls/hr Q1H ONCE IV 05/02/24 21:30 05/02/24 22:29 DC 05/02/24 21:37 Etomidate 20 mg ONCE ONCE IV 05/02/24 22:00 05/02/24 22:01 DC 05/02/24 22:12 Time of 1ST Reevaluation: 21:02 Reevaluation 1ST: Unchanged Patient Education/Counseling: Other (altered, confused), Pt Unresponsive Family Education/Counseling: No Family Present Departure 1 Departure Time of Disposition: 23:41 (Patient presenting with severe sepsis altered mental status. Patient was emergently intubated central line placed. Patient ordered for 30 cc/kg of fluids. Patient empirically covered with antibiotics to be given after cultures are drawn. We will admit patient for further workup) Impression: Primary Impression: Septic shock Additional Impression: Encephalopathy Qualified Codes: G93.40 - Encephalopathy, unspecified Disposition: 09 ADMITTED INPATIENT Admit to: ICU Condition: Critical Critical Care Note Critical Care Time?: Yes (45 min-critical care time only) Critical care comment: hyperglycemia, ALOC, Septic shock Authorized and Performed by: Elizabeth Rome MD Total critical care time: Approximately 114 minutes Due to a high probability of clinically significant, life threatening deterioration, the patient required my highest level of preparedness to intervene emergently and I personally spent this critical care time directly and personally managing the patient. This critical care time included obtaining a history; examining the patient; pulse oximetry; ordering and review of studies; arranging urgent treatment with development of a management plan; evaluation of patient's response to treatment; frequent reassessment; and, discussions with other providers. This critical care time was performed to assess and manage the high probability of imminent, life-threatening deterioration that could result in multi-organ failure. It was exclusive of separately billable procedures and treating other patients and teaching time. Please see my other sections and the rest of the note for further information on patient assessment and treatment. Stability Stability form required: No Heart Score Heart Score: Heart Score Response (Comments) Value History N/A 0 EKG N/A 0 Age N/A 0 Risk Factors N/A 0 Troponin N/A 0 Total 0 I personally scribed for ELIZABETH ROME MD (JOHN) on 05/02/24 at 21:06. Electronically submitted by Julio C Cervantes ([place]). I personally scribed for ELIZABETH ROME MD (JOHN) on 05/02/24 at 22:41. Daphne ctronically submitted by Julio C Cervantes ([email or web address]). I personally scribed for ELIZABETH ROME MD (JOHN) on 05/02/24 at 23:07. Electronically submitted by Julio C Cervantes ([email or web address]). ELIZABETH ROME MD May 02, 2024 21:06
[2024-05-02 21:09] LABS: Albumin 4.7 g/dL (3.2-4.8); Anion Gap 12 (5-15); Bilirubin, Total 0.5 mg/dL (0.2-1.0); Carbon Dioxide 23 mmol/L (20-31); Potassium 4.5 mmol/L (3.5-5.1)
[2024-05-02 21:16] LABS: Alanine Aminotransferase 17 U/L (7-40); Alkaline Phosphatase 84 U/L (46-116); Aspartate Aminotransferase 22 U/L (13-40); Blood Urea Nitrogen 20 mg/dL (9-23); Calcium 11.2 mg/dL (8.7-10.4); Chloride 97 mmol/L (98-107); Sodium 132 mmol/L (136-145); Total Protein 8.4 g/dL (5.7-8.2)
[2024-05-02 21:19] LABS: Glucose 667 mg/dL (74-106); Lactic Acid w/Reflex 3.7 mmol/L (0.4-2.0)
[2024-05-02] MEDS: MIDAZOLAM HCL 5 MG/ML-1ML VIAL IV ONE (21:36)
[2024-05-02] MEDS: MIDAZOLAM HCL 5 MG/ML-1ML VIAL ONE (21:37)
[2024-05-02] MEDS: SODIUM CHLORIDE 0.9% 1,000 ML IV ONE ×2 (21:37)
[2024-05-02] MEDS: ETOMIDATE (2MG/ML) 20ML VIAL IV ONE ×2 (21:58→22:12)
[2024-05-02] MEDS: ROCURONIUM 10MG/ML 10ML VIAL IV ONE ×2 (21:59→22:12)
[2024-05-02 22:10] VITALS: PULSE 154; RESP 13; O2SAT 93
[2024-05-02] MEDS: PROPOFOL 100 ML IV ONE (22:33)
[2024-05-02 22:44] VITALS: BP 120/52; PULSE 158; RESP 16; TEMP 97.8; O2SAT 97
[2024-05-02 22:49] VITALS: BP 110/79; PULSE 150; RESP 16; O2SAT 90
[2024-05-02] MEDS: fentaNYL Drip 2500mCg/250mlNS 250 ML IV ONE (23:12)
[2024-05-02] MEDS: ACETAMINOPHEN IV 1000 MG/100ML (10MG/ML) IV STA (23:53)
[2024-05-03] VITALS (44 sets, daily range): BP systolic 71–197; BP diastolic 30–121; PULSE 71–144; RESP 16–21; TEMP 99–100; O2SAT 91–100
[2024-05-03] MEDS: fentaNYL Drip 2500mCg/250mlNS 250 ML IV SCH
[2024-05-03] MEDS: VANCOMYCIN 1GM/250ML KIT 200 ML IV ONE (00:01)
[2024-05-03] MEDS: MIDAZOLAM DRIP 50 mg/50mL 50 ML IV SCH (00:10)
--- NOTE | 2024-05-03 00:22 | DVH ---
CHEST RADIOGRAPH Indication: ams Technique: Single frontal view of the chest was obtained COMPARISON: XY CHEST XRAY 1 VIEW on DOS: 03/10/24, XY CHEST PORTABLE on DOS: 03/09/24, XY CHEST LÓPEZ BLE on DOS: 03/07/24, CHEST PORTABLE on DOS: 02/08/22, EKG on DOS: 02/08/22 FINDINGS: Lines and Tubes: Interval placement of right-sided central venous catheter with tip in the cavoatrial junction. Interval placement of enteric tube with tip in the region of the stomach. Interval intuba tion with tip 4.1 cm above the padma. Lungs: Bibasilar atelectasis and scarring. No clear evidence of pneumonia. Pleura: No effusion. No pneumothorax. Cardiomediastinal contours: Unremarkable Bones: Unremarkable IMPRESSION: 1. Bibasilar atelectasis and scarring. 2. Lines and tubes as above
[2024-05-03 00:24] LABS: Base Excess -5.2 mmol/L (-2.0-3.0)
[2024-05-03] MEDS: SODIUM CHLORIDE 0.9% 1,000 ML IV ONE (00:59)
[2024-05-03 01:46] LABS: Urine Bacteria None Seen /hpf (None Seen)
[2024-05-03] MEDS: PROPOFOL 100 ML IV SCH (01:53)
[2024-05-03] MEDS: PROPOFOL 100 ML IV ONE (01:53)
[2024-05-03 01:56] LABS: Urine Blood Negative /uL (Negative); Urine Budding Yeast OCCASIONAL /hpf (None Seen); Urine Clarity Clear (Clear); Urine Color Light-Yellow (Yellow); Urine Protein, UAD TRACE (Negative); Urine Specific Gravity 1.031 (1.001-1.035); Urine Squamous Epithelial Cell FEW /hpf (<5); Urine Urobilinogen Normal (Negative); Urine WBC 1 /hpf (0 - 5)
[2024-05-03] MEDS: CEFEPIME 2GM/50ML NS 50 ML IV ONE (02:05)
[2024-05-03] MEDS: NOREPINEPHRINE 8 MG/250ML KIT 250 ML IV SCH (02:15)
[2024-05-03] MEDS ORDERED: VANCOMYCIN PER PHARMACY 0 MG IV SCH (02:15)
[2024-05-03] MEDS: NOREPINEPHRINE 8 MG/250ML KIT 250 ML IV ONE (02:38)
[2024-05-03] MEDS: MIDAZOLAM DRIP 50 mg/50mL 50 ML IV ONE (02:38)
--- NOTE | 2024-05-03 02:40 | DVHHPRES ---
History of Present Illness Resident Creating Document: HANNA MCELROY RESDIENT History of Present Illness This is a 64-year-old female with past medical history diabetes mellitus type 2, non-Hodgkin lymphoma stage were (status post chemotherapy, in remission since 2009) pituitary gland tumor (status post surgery 2 times in 1985 and 2010), brought to the hospital due to ALOC. Per patient's , if found his confused and lying on the floor upon return from his workplace. The last time that he had spoken with her was for hours before finding her confused at home. Upon arrival to the hospital the patient was restless, due to imbalance due to maintain airway, the patient was sedated, intubated and put on mechanical ventilation. PMHx: Per patient has been, the patient has history diabetes mellitus type 2, non-Hodgkin lymphoma stage were (status post chemotherapy, in remission since 2009) pituitary gland tumor (status post surgery 2 times in 1985 and 2010) PSHx: pituitary gland tumor (status post surgery 2 times in 1985 and 2010) Social history: Patient lives with the has been at home, mobile at baseline, ex-smoker, drink alcohol occasionally Home medication: The does not know about the medicine, the was asked to bring the medicine Allergic history: Latex, penicillin and sulfa antibiotics Review of Systems Review of Systems Patient was sedated and on mechanical ventilation, reviewed review of systems could not obtain Allergies: Coded Allergies: Latex (Verified Allergy, Mild, 03/08/24) RASH Penicillins (Verified Allergy, Unknown, 03/08/24) Sulfa Antibiotics (Verified Allergy, Unknown, 03/08/24) Medications Current Medications Medications Dose Ordered Sig/Suzette Route Start Time Stop Time Status Last Admin Dose Admin Propofol 100 ml @ 3.39 mls/hr Q24H IV 05/03/24 01:53 Midazolam HCl 50 ml @ 1 mls/hr Q24H IV 05/03/24 00:10 Fentanyl Citrate 250 ml @ 2.5 mls/hr Q24H IV 05/03/24 00:00 Norepinephrine Bitartrate 250 ml @ 3.75 mls/hr Q24H IV 05/03/24 02:15 Cefepime HCl 50 ml @ 12.5 mls/hr DAILY IV 05/04/24 10:00 Vancomycin HCl 0 ml @ 0 mls/hr UD IV 05/03/24 02:15 UNV Pantoprazole Sodium 40 mg DAILY IV 05/04/24 10:00 Acetaminophen 650 mg Q6HP PRN CO 05/03/24 02:15 Insulin Glargine 15 units DAILY@1000 SC 05/03/24 10:00 UNV Exam Vital Signs Vital Signs Date Time Temp Pulse Resp B/P (MAP) Pulse Ox O2 Delivery O2 Flow Rate FiO2 05/03/24 02:04 111 05/03/24 00:41 16 147/72 (97) 100 60 05/02/24 22:44 97.8 97.8 Exam General: RASS -2, afebrile, mucosae are moist Cardiovascular: Normal S1 and S2. No murmurs, gallops or rubs Respiratory: Mechanically assisted ventilation, equal bilateral airway entree. Clear lung sounds on auscultation Abdomen: Soft, nontender, no organomegaly, normal bowel sounds MSK/skin: Mobilization of limbs cannot be evaluated. Skin is dry and warm. Neurological: Orientation cannot be assessed. No apparent motor no sensitive deficits. Pupils are isocoric and reactive Labs/Xrays Labs Test 05/03/24 01:06 05/03/24 00:24 05/03/24 00:20 05/02/24 23:05 Range/Units Urine Color Light-yellow Yellow Urine Clarity Clear Clear Urine pH 5.0 5.0-9.0 Urine Specific [place] 1.031 1.001-1.035 Urine Protein Trace H Negative Urine Ketones 1+ H Negative Urine Blood Negative Negative /uL Urine Nitrite Negative Negative Urine Bilirubin Negative Negative Urine Urobilinogen Normal Negative mg/dL Urine Leukocyte Esterase Negative Negative /uL Urine RBC 1 0 - 4 /hpf Urine WBC 1 0 - 5 /hpf Urine Squamous Epithelial Cells Few <5 /hpf Urine Bacteria None seen None Seen /hpf Urine Yeast (Budding) Occasional None Seen /hpf Urine Glucose 4+ H Normal mg/dL POC Glucose 462 *H 70-106 mg/dl Blood Gas Specimen Type Arterial Blood Gas Sample Site Left brachial Blood Gas Patient Temperature 37.0 Arterial Blood Date Drawn [id number] Arterial Blood pH 7.358 7.350-7.450 Arterial Blood Partial Pressure CO2 35.4 32.0-45.0 mmHg Arterial Blood Partial Pressure O2 214.8 H 83.0-108.0 mmHg Arterial Blood HCO3 19.5 L 21.0-28.0 mmol/L Arterial Blood Oxygen Saturation 99.4 H 94.0-98.0 % Arterial Blood Base Excess -5.2 L -2.0-3.0 mmol/L Arterial Blood Oxyhemoglobin 98.2 H 94.0-98.0 % Arterial Blood Carboxyhemoglobin 0.7 0.5-1.5 % Arterial Blood Methemoglobin 0.5 0.0-1.5 % Sammy Test N/a Blood Gas Total Hemoglobin 13.60 12.0-16.0 g/dL Blood Gas Set Respiration Rate 16.0 Blood Gas Modality Vent - ac FiO2 % 100.0 Blood Gas Tidal Volume 450.0 Blood Gas PEEP or CPAP 5.0 Lactic Acid Level 1.7 0.4-2.0 mmol/L Troponin I High Sensitivity 31 </=34 ng/L Test 05/02/24 20:39 Range/Units White Blood Count 14.1 H 4.4-10.8 10^3/uL Red Blood Count 5.17 4.0-5.20 10^6/uL Hemoglobin 14.9 12.2-16.2 g/dL Hematocrit 45.8 36.0-46.0 % Mean Corpuscular Volume 88.5 80.0-100.0 fL Mean Corpuscular Hemoglobin 28.8 28.0-32.0 pg Mean Corpuscular Hemoglobin Concent 32.5 32.0-36.0 g/dL Red Cell Distribution Width 14.9 H 11.8-14.3 % Platelet Count 256 140-450 10^3/uL Mean Platelet Volume 8.4 6.9-10.8 fL Neutrophils (%) (Auto) 81.5 H 37.0-80.0 % Lymphocytes (%) (Auto) 12.0 10.0-50.0 % Monocytes (%) (Auto) 5.7 0.0-12.0 % Eosinophils (%) (Auto) 0.2 0.0-7.0 % Basophils (%) (Auto) 0.6 0.0-2.0 % Neutrophils # (Auto) 11.5 H 1.6-8.6 10 ^3/uL Lymphocytes # (Auto) 1.7 0.4-5.4 10 ^3/uL Monocytes # (Auto) 0.8 0-1.3 10 ^3/uL Eosinophils # (Auto) 0 0-0.8 10 ^3/uL Basophils # (Auto) 0.1 0-0.2 10 ^3/uL Nucleated Red Blood Cells 0.0 % Sodium Level 132 L 136-145 mmol/L Potassium Level 4.5 3.5-5.1 mmol/L Chloride Level 97 L 98-107 mmol/L Carbon Dioxide Level 23 20-31 mmol/L Anion Gap 12 5-15 Blood Urea Nitrogen 20 9-23 mg/dL Creatinine 1.54 H 0.550-1.02 mg/dL Glomerular Filtration Rate Calc 37 >90 mL/min BUN/Creatinine Ratio 13.0 10.0-20.0 Serum Glucose 667 *H 74-106 mg/dL Calcium Level 11.2 H 8.7-10.4 mg/dL Total Bilirubin 0.5 0.2-1.0 mg/dL Aspartate Amino Transferase (AST) 22 13-40 U/L Alanine Aminotransferase (ALT) 17 7-40 U/L Alkaline Phosphatase 84 46-116 U/L B-Type Natriuretic Peptide 18.11 0-100 pg/mL Total Protein 8.4 H 5.7-8.2 g/dL Albumin 4.7 3.2-4.8 g/dL Beta-Hydroxybutyric Acid 1.778 H < 0.4 mmol/L Assessment/Plan Assessment/Plan NEURO: Acute metabolic encephalopathy, likely due to sepsis/hyperglycemia Pituitary gland tumor, status post surgery History of depression/anxiety Patient is sedated and on mechanical ventilation, RASS score -2 CARDIOVASCULAR: Paroxysmal atrial fibrillation Mild aortic stenosis History of hypertension Echo from shows EF 65%, mild LV diastolic dysfunction with mild aortic stenosis Serial trop I is within normal limit, BNP is 18 PULMONARY: Acute hypoxic respiratory failure, likely due to pneumonia Sepsis, likely due to pneumonia Possible Pneumonia, likely due to Gram-positive Gram-negative bacteria/viral Obstructive sleep apnea Check influenza type a, B and MRSA nares Patient is sedated and on mechanical ventilation with a setting of tidal volume 450, RR 16, FiO2 50%, and PEEP 5 ABGs shows mild metabolic acidosis has been respiratory compensation, pH 7.358 Empiric antibiotic of vancomycin and cefepime GASTROINTESTINAL: GENITOURINARY: DELANEY, on CKD 2, likely VMN Check FENa IV fluid ENDOCRINE: Uncontrolled DM type 2, with hyperglycemia Hb A1c from 03/08/2024 is 13.8 Lantus 15 units daily Insulin moderate SS METABOLIC: Obesity Mild hyponatremia, monitoring Mild hyperchloremia, monitoring Asymptomatic hypercalcemia, monitoring HEME: History of non-Hodgkin lymphoma, stage IV, status post chemotherapy In remission since 2009 INFECTIOUS DISEASE: Sepsis, likely due to pneumonia Panculture Empiric antibiotic of cefepime and vancomycin MUSCULOSKELETAL: DERMATOLOGY: DIET: NPO DVT prophylax: Lovenox GI prophylaxis: Protonix Code status: Goal of care discussed for the asthma for more than 20 minutes, full code LINES/DRAINS/ACCESS: ETT: Intubated on 05/02/2024 IV access: Right internal jugular CVC, placed on 05/02/2024 Drips: Propofol Versed Fentanyl DISPOSITION: ICU status Patient's status discussed with the patient at the bedside. Critical care time spent more than 78 minutes, including patient care, chart review, and updating the family. Excluding any procedures. Case discussed with Dr. Hoff. Plan discussed with: Patient, Other My Orders Orders - HANNA MCELROY RESDIMARV Procedure Category Date Status Time Admit ADMIT 05/03/24 Transmitted 02:00 Stat Ekg For Chest LUCERO 05/03/24 In Process Pain 02:00 Notify Md Of Changes LUCERO 05/03/24 In Process From Base 02:00 Music Professor For LUCERO 05/03/24 In Process 24 Hours 02:00 Emergency Dysrhythmia LUCERO 05/03/24 In Process Protocol 02:00 Rhythm Strips Once LUCERO 05/03/24 In Process Every Shift 02:00 Electrocardigram EKG 05/03/24 Logged 02:12 Electrocardigram EKG 05/03/24 Logged 03:12 Electrocardigram EKG 05/03/24 Logged 05:12 Insulin Lantus PHA 05/03/24 Transmitted (Glargine) (Lantus) 02:45 Insulin Lantus PHA 05/03/24 Transmitted (Glargine) (Lantus) 10:00 Code Status CODE 05/03/24 Transmitted 02:34 Full Code LUCERO 05/03/24 In Process 02:34 Blood Culture MAURY 05/03/24 Transmitted 02:34 Respiratory Culture MAURY 05/03/24 Transmitted W/ Gs 02:34 Mrsa Screen MAURY 05/03/24 Transmitted 02:34 Rapid Influenza A&B LAB 05/03/24 Transmitted 02:34 Ct Ab Pel Wo Con-No CT 05/03/24 Logged Oral Or Iv 02:34 Lactic Acid W/ Reflex LAB 05/03/24 Transmitted Order 02:34 Complete Blood Count LAB 05/03/24 Transmitted 04:00 Comprehensive LAB 05/03/24 Verified Metabolic Panel 04:00 Date of Service: May 03, 2024 Billing Provider: TACHO HOFF MD Common Visit Codes: [id number] INP/OBS CARE (HIGH) HANNA MCELROY RESDIENT May 03, 2024 02:40 TACHO HOFF MD May 03, 2024 10:10
[2024-05-03] MEDS: InsuLIN REG 1unit/0.01ml Soln (100units/ml) IV ONE (02:43)
[2024-05-03] MEDS: PANTOPRAZOLE 40 MG/10 ML VIAL INJ IV ONE (02:43)
[2024-05-03] MEDS: VANCOMYCIN 1GM/250mL NS or D5W KIT IV ONE (02:59)
[2024-05-03] MEDS: INSULIN LANTUS (GLARGINE) 1 /0.01ml (100units/ml) SC ONE (03:23)
[2024-05-03 03:49] LABS: Basophils # (auto) 0.1 10 ^3/uL (0-0.2); Basophils % (auto) 0.5 % (0.0-2.0); Eosinophils # (auto) 0 10 ^3/uL (0-0.8); Eosinophils % (auto) 0.1 % (0.0-7.0); Hematocrit 40.7 % (36.0-46.0); Hemoglobin 13.5 g/dL (12.2-16.2); Lymphocytes # (auto) 2.4 10 ^3/uL (0.4-5.4); Mean Corpuscular Hemoglobin 29.1 pg (28.0-32.0); Mean Corpuscular Hgb Conc. 33.2 g/dL (32.0-36.0); Mean Corpuscular Volume 87.7 fL (80.0-100.0); Monocytes # (auto) 1.2 10 ^3/uL (0-1.3); Monocytes % (auto) 6.4 % (0.0-12.0); Neutrophils # (auto) 14.7 10 ^3/uL (1.6-8.6); Nucleated Red Blood Cells % 0.1 %; Platelet Count (auto) 228 10^3/uL (140-450); Red Blood Cells 4.64 10^6/uL (4.0-5.20); Red Cell Distribution Width 15.3 % (11.8-14.3); White Blood Cell 18.4 10^3/uL (4.4-10.8)
[2024-05-03 03:57] LABS: Alanine Aminotransferase 17 U/L (7-40); Albumin 3.5 g/dL (3.2-4.8); Alkaline Phosphatase 68 U/L (46-116); Anion Gap 10 (5-15); BUN/Creatinine Ratio 12.9 (10.0-20.0); Blood Urea Nitrogen 16 mg/dL (9-23); Calcium 9.4 mg/dL (8.7-10.4); Carbon Dioxide 21 mmol/L (20-31); Potassium 3.9 mmol/L (3.5-5.1); Sodium 139 mmol/L (136-145); Total Protein 6.7 g/dL (5.7-8.2)
[2024-05-03 04:05] LABS: Bilirubin, Total 0.3 mg/dL (0.2-1.0); Chloride 108 mmol/L (98-107)
[2024-05-03 04:08] LABS: Glucose 405 mg/dL (74-106); Lactic Acid w/Reflex 2.4 mmol/L (0.4-2.0)
[2024-05-03] MEDS ORDERED: DEXTROSE (50%) 50ML SYRG IV PRN (04:15)
[2024-05-03 04:25] LABS: Aspartate Aminotransferase 21 U/L (13-40)
[2024-05-03 04:32] LABS: Rapid Influenza A Negative (Negative); Rapid Influenza B Negative (Negative)
--- NOTE | 2024-05-03 05:04 | DVH ---
EXAM: CT HEAD WITHOUT CONTRAST INDICATION: ams TECHNIQUE: CT of the head without intravenous contrast. Radiation Dose Information: CT Dose: CTDI volume is 60.5 mGy. Dose-length product is 1190.1 mGy*cm The dose indicators for CT are the volume Computed Tomography (CT) Dose Index (CTDIvol) and the Dose Length Product (DLP), and are measured in units of mGy and mGy-cm, respectively. These indicators are not patient dose, but values generated from the CT scanner acquisition factors. The report includes radiation exposure data for exposures received during this examination. COMPARISON: CT HEAD WITHOUT CONTRAST on DOS: 03/07/24, CERVICAL WITHOUT CONTRAST on DOS: 02/08/22 FINDINGS: There is no evidence of acute intracranial hemorrhage, extra-axial collection, mass effect, midline s hift, herniation or hydrocephalus. The ventricles, sulci and cisterns are age appropriate. The muse-white differentiation is intact. The visualized paranasal sinuses and mastoid air cells are clear. The surrounding soft tissues and osseous structures are unremarkable. IMPRESSION: 1. No acute intracranial abnormality.
--- NOTE | 2024-05-03 05:26 | DVH ---
Exam: CT CT AB PEL WO CON-NO ORAL OR IV History: abdominal tenderness Comparison Study: CT 03/07/2024 report only TECHNIQUE: Multidetector CT of the abdomen was performed from lung bases to pubic symphysis. Imaging was performed without IV contrast. Axial, coronal and sagittal multiplanar reformats were obtained fr om the axial data set by the technologist. Radiation optimization: All CT scans at this facility use at least one of these dose optimization faustino hniques: automated exposure control mA and/or kV adjustment per patient size (includes targeted exam s where dose is matched to clinical indication) or iterative reconstruction. Radiation Dose Information: CT Dose: CTDI volume is 25 mGy. Dose-length product is 1561.3 mGy*cm FINDINGS: Evaluation of solid organs is limited due to lack of intravenous contrast use. Findings: Imaged portions of the lung bases demonstrate bibasilar consolidation. There are coronary artery obdulio cifications and a cardiac device. The liver, spleen and adrenal glands appear unremarkable. There is fatty replacement of the pancreas. Enteric tube tip is within the stomach. Dependent hyperdense material is noted within the gallbladde r. The kidneys appear symmetric without hydronephrosis. No evidence of bowel obstruction or focal bowel wall thickening. Appendix appears normal. No free flu id, free air, or adenopathy. De La Cruz catheter within the urinary bladder. IMPRESSION: 1. No acute abdominal or pelvic finding. 2. Bibasilar consolidation may represent atelectasis or pneumonia. 3. Hyperdense material within the gallbladder likely relates to previous contrast administration, how ever may represent hyperdense sludge or calculi.
--- NOTE | 2024-05-03 06:01 | DVH ---
CHEST RADIOGRAPH Indication: sob Technique: Single frontal view of the chest was obtained COMPARISON: XY CHEST PORTABLE on DOS: 05/02/24, XY CHEST XRAY 1 VIEW on DOS: 03/10/24, XY CHEST PORTAB LE on DOS: 03/09/24, XY CHEST PORTABLE on DOS: 03/07/24, CHEST PORTABLE on DOS: 02/08/22 FINDINGS: Lines and Tubes: Endotracheal tube, enteric catheter and right central venous catheter in satisfactor y position. Lungs: Congestion Pleura: No effusion. No pneumothorax. Cardiomediastinal contours: Unremarkable Bones: Unremarkable IMPRESSION: Lines and tubes in satisfactory position. No significant interval change.
[2024-05-03 06:36] LABS: Base Excess -6.1 mmol/L (-2.0-3.0)
--- NOTE | 2024-05-03 07:12 | ECG ---
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
[2024-05-03] MEDS: SODIUM CHLORIDE 0.9% 1,000 ML IV SCH (07:30)
[2024-05-03] MEDS: ACCU-CHEK COMFORT CURVE STRIP VI SCH (08:06)
[2024-05-03] MEDS: InsuLIN REG 1unit/0.01ml Soln (100units/ml) SC SCH (08:11)
[2024-05-03 08:29] LABS: Creatinine, Urine 43.29 mg/dL (30.0-125.0); Phencyclidine Screen, Urine Neg (NEGATIVE)
[2024-05-03 08:36] LABS: Amphetamine Screen, Urine Neg (NEGATIVE); Barbiturate Scree,Urine Neg (NEGATIVE); Benzodiazephine Screen, Urine Pos (NEGATIVE); Cannabinoid Screen, Urine Neg (NEGATIVE); Cocaine Screen, Urine Neg (NEGATIVE); Opiate Scree,Urine Neg (NEGATIVE)
[2024-05-03] MEDS: ENOXAPARIN SOD 120 MG/0.8 ML SYRINGE SC SCH (10:27)
[2024-05-03] MEDS: PHENYLEPHRINE IV 250 ML IV SCH (17:00)
[2024-05-03] MEDS: VASOPRESSIN 20 UNITS in SODIUM CHL 0.9% 99 ML IV SCH (17:00)
[2024-05-03] MEDS: CEFEPIME 2GM/50ML 50 ML IV SCH (17:45)
[2024-05-03 18:54] LABS: Base Excess -3.4 mmol/L (-2.0-3.0)
--- NOTE | 2024-05-03 23:39 | DVHINCON2 ---
Date of service: May 03, [address] Manan Ahn Reason for Consultation Acute hypoxic respiratory failure requiring mechanical ventilator, pneumonia History of Present Illness A 64-year-old woman with PMHx of diabetes mellitus type 2, non-Hodgkin lymphoma (status post chemotherapy, in remission since 2009), and pituitary gland tumor (status post surgery 2 times in 1985 and 2010) who is brought to the ED today due to ALOC. Per patient's , he found patient confused and lying on the floor upon return from his workplace. The last time that he had spoken with her was 4 hours before finding her confused at home. In the ED, patient was unable to maintain airway, therefore was sedated, intubated and put on mechanical ventilation. Pulmonary consultation is requested for evaluation and management due to the above findings. Review of Systems: 14-point review of systems negative unless otherwise noted above. Past Medical History: Diabetes mellitus type 2, non-Hodgkin lymphoma (status post chemotherapy, in remission since 2009), and pituitary gland tumor (status post surgery 2 times in 1985 and 2010) Past Surgical History: Surgery for pituitary gland tumor 2 times (in 1985 and 2010) Medications: Reviewed. Allergies: Latex, penicillin and sulfa antibiotics Family History: No family history of premature CAD. No family history of lung disorders. Social History: Former smoker. Occasional alcohol use. No illicit drug use. Family History: FH: alcohol abuse G8 FATHER, Onset:40's - 50 G8 BROTHER, Onset:50's - 60 FH: cancer G8 MOTHER, Onset:Unknown Allergies: Coded Allergies: Latex (Verified Allergy, Mild, 03/08/24) RASH Penicillins (Verified Allergy, Unknown, 03/08/24) Sulfa Antibiotics (Verified Allergy, Unknown, 03/08/24) Home Meds Active Scripts Levofloxacin Hemihydrate (LEVAQUIN 500 MG) 500 Mg Tab, 1.5 TAB PO DAILY for 7 Days, #11 TAB Prov:CHE YOON RESIDENT 03/11/24 Cyclobenzaprine Hcl (Cyclobenzaprine Hcl) 5 Mg Tab, 1 TAB PO TID for 5 Days, #15 TAB Prov:NAY GARCIAS MD 02/08/22 Hydrocodone-Acetaminophen (Hydrocodone Bitartrate/AC 5-325 mg) 1 Tab Tab, 1 TAB PO TID for 5 Days, #15 TAB Prov:NAY GARCIAS MD 02/08/22 Metoprolol Tartrate (Lopressor) 25 Mg Tb, 12.5 MG PO Q12HR, #60 TAB 0 Refills Prov:INO GRANADOS MD 09/25/19 Apixaban Base (ELIQUIS) 5 Mg Tab, 5 MG PO BID, #60 TAB Prov:INO GRANADOS MD 09/25/19 Ascorbic Acid (Gnp Vitamin C W/Mary Hips) 1,000 Mg Tab, 1000 MG PO DAILY, #30 TAB Prov:INO GRANADOS MD 09/25/19 Pantoprazole Sodium Sesquihydr (Protonix) 40 Mg Tab, 40 MG PO DAILY, #30 TAB Prov:INO GRANADOS MD 09/25/19 Potassium Chloride (Klor-Con 10) 10 Meq Tab, 10 MEQ PO DAILY, #3 TAB Prov:INO GRANADOS MD 09/25/19 Furosemide (Lasix) 20 Mg Tb, 1 TAB PO DAILY, #3 TAB 1 Refill Prov:INO GRANADOS MD 09/25/19 Zinc Sulfate (Zinc Sulfate) 220 Mg Tab, 220 MG PO DAILY, #14 TAB Prov:INO GRANADOS MD 09/25/19 Reported Medications Empagliflozin (Jardiance) 10 Mg Tab, 10 MG PO DAILY, TAB 09/18/19 Metformin Hydrochloride (Metformin Hcl) 500 Mg Tab, 500 MG PO BID for 30 Days, MG 09/18/19 Sertraline Hcl (Sertraline Hcl) 50 Mg Tab, 100 MG PO DAILY for 30 Days, MG 09/18/19 Ropinirole Hydrochloride (Requip) 0.5 Mg Tab, 0.25 MG PO Q8HPRN, TAB 06/11/18 Glipizide (Glipizide) 10 Mg Tab, 1 TAB PO BID, #60 TAB 5 Refills 06/08/18 Tramadol Hcl (Tramadol Hcl) 50 Mg Tab, 50 MG PO Q6HP, MG 06/08/18 Gabapentin (Gabapentin) 600 Mg Tab, 600 MG PO TID for 30 Days, MG 06/08/18 Cabergoline (Cabergoline) 0.5 Mg Tab, 0.5 MG PO 2XW, TAB 06/08/18 Atorvastatin Calcium (ATORVASTATIN CALCIUM) 20 Mg Tab, 1 TAB PO DAILY, #30 TAB 5 Refills 06/08/18 Methadone Hcl (METHADONE HCL TABLET) 10 Mg Tb, 1 TAB PO DAILY, #120 TAB 06/08/18 Current Medications Current Medications Medications (Trade) Dose Ordered Sig/Suzette Route PRN Reason Start Time Stop Time Status Last Admin Acetaminophen (Ofirmev) 1,000 mg DAILY STAT IV 05/02/24 23:39 05/02/24 23:41 DC 05/02/24 23:53 Propofol 100 ml @ 3.39 mls/hr Q24H IV 05/03/24 01:53 05/03/24 22:26 Midazolam HCl 50 ml @ 1 mls/hr Q24H IV 05/03/24 00:10 05/03/24 00:10 Fentanyl Citrate 250 ml @ 2.5 mls/hr Q24H IV 05/03/24 00:00 05/03/24 12:52 Norepinephrine Bitartrate 250 ml @ 3.75 mls/hr Q24H IV 05/03/24 02:15 05/03/24 02:15 Cefepime HCl 50 ml @ 12.5 mls/hr DAILY IV 05/04/24 10:00 05/03/24 16:34 DC Vancomycin HCl 0 ml @ 0 mls/hr UD IV 05/03/24 02:15 Pantoprazole Sodium (Protonix) 40 mg DAILY IV 05/04/24 10:00 Acetaminophen (Tylenol Suppository) 650 mg Q6HP PRN MD TEMP>100.4 05/03/24 02:15 Insulin Glargine (Lantus) 15 units DAILY@1000 SC 05/04/24 10:00 Diagnostic Test (Pha) (Accu-Chek Comfort Curve T) 1 strip IQ4HR 05/03/24 08:00 05/03/24 19:30 Insulin Human Regular (InsuLIN R) IQ4HR SC 05/03/24 08:00 05/03/24 19:31 Dextrose 50 ml UD PRN IV Blood Sugar LESS THAN 60 05/03/24 04:15 Enoxaparin Sodium (Lovenox) 110 mg Q12HR SC 05/03/24 10:00 05/03/24 21:26 Sodium Chloride 1,000 ml @ 100 mls/hr Q10H IV 05/03/24 07:30 05/03/24 11:30 DC 05/03/24 07:30 Cefepime/Dextrose 50 ml @ 12.5 mls/hr Q8H IV 05/03/24 18:00 05/03/24 17:45 Vasopressin 20 units/Sodium Chloride 100 ml @ 9 mls/hr Q11H7M IV 05/03/24 17:00 Phenylephrine HCl 250 ml @ 30 mls/hr Q8H20M IV 05/03/24 17:00 Vital Signs Vital Signs Date Time Temp Pulse Resp B/P (MAP) Pulse Ox O2 Delivery O2 Flow Rate FiO2 05/03/24 22:45 99.1 73 20 109/51 (70) 97 210.4 05/03/24 22:14 40 05/03/24 22:00 Mechanical Ventilator+ 05/02/24 22:10 0 Physical Exam Gen.: Patient lying in bed in medical ICU. Sedated, intubated on mechanical ventilator. Head: Normocephalic, atraumatic. Eyes: PERRLA. Ears: Normal external anatomy. Throat: Endotracheal tube and orogastric tube in place. Neck: Supple, trachea midline. Chest: Transmitted breath sounds bilaterally. Decreased air entry bilaterally. No wheezing. Bibasilar crackles. Cardiovascular: Positive S1, positive S2. Regular rate and rhythm. Abdomen: Positive bowel sounds in all 4 quadrants. Soft, nontender, nondistended. : De [place] Cruz in place. Normal external genitalia. Rectal: Deferred. Skin: Warm, dry. Intact. Extremities: 2+ radial pulses bilaterally. No lower extremity edema. Neuro: Sedated. Labs/Diagnostic Data Labs Test 05/03/24 19:28 05/03/24 18:35 05/03/24 07:40 05/03/24 06:29 Range/Units POC Glucose 247 H 70-106 mg/dl Blood Gas Specimen Type Arterial Blood Gas Sample Site Right radial Blood Gas Patient Temperature 37.0 Arterial Blood Date Drawn [id number] Arterial Blood pH 7.348 L 7.350-7.450 Arterial Blood Partial Pressure CO2 41.0 32.0-45.0 mmHg Arterial Blood Partial Pressure O2 78.7 L 83.0-108.0 mmHg Arterial Blood HCO3 22.0 21.0-28.0 mmol/L Arterial Blood Oxygen Saturation 95.2 94.0-98.0 % Arterial Blood Base Excess -3.4 L -2.0-3.0 mmol/L Arterial Blood Oxyhemoglobin 94.8 94.0-98.0 % Arterial Blood Carboxyhemoglobin 0.2 L 0.5-1.5 % Arterial Blood Methemoglobin 0.2 0.0-1.5 % Sammy Test Yes Blood Gas Total Hemoglobin 14.20 12.0-16.0 g/dL Blood Gas Set Respiration Rate 20.0 Blood Gas Modality Vent - ac Blood Gas Spontaneous Rate 20 FiO2 % 40.0 Blood Gas Tidal Volume 450.0 Blood Gas PEEP or CPAP 8.0 Lactic Acid Level 1.9 0.4-2.0 mmol/L Blood Gas Liter Flow 60.00 Test 05/03/24 03:45 05/03/24 03:10 05/03/24 01:06 05/02/24 23:05 Range/Units Influenza Type A Antigen Negative Negative Influenza Type B Antigen Negative Negative White Blood Count 18.4 #H 4.4-10.8 10^3/uL Red Blood Count 4.64 4.0-5.20 10^6/uL Hemoglobin 13.5 12.2-16.2 g/dL Hematocrit 40.7 # 36.0-46.0 % Mean Corpuscular Volume 87.7 80.0-100.0 fL Mean Corpuscular Hemoglobin 29.1 28.0-32.0 pg Mean Corpuscular Hemoglobin Concent 33.2 32.0-36.0 g/dL Red Cell Distribution Width 15.3 H 11.8-14.3 % Platelet Count 228 140-450 10^3/uL Mean Platelet Volume 8.3 6.9-10.8 fL Neutrophils (%) (Auto) 80.0 37.0-80.0 % Lymphocytes (%) (Auto) 13.0 10.0-50.0 % Monocytes (%) (Auto) 6.4 0.0-12.0 % Eosinophils (%) (Auto) 0.1 0.0-7.0 % Basophils (%) (Auto) 0.5 0.0-2.0 % Neutrophils # (Auto) 14.7 H 1.6-8.6 10 ^3/uL Lymphocytes # (Auto) 2.4 0.4-5.4 10 ^3/uL Monocytes # (Auto) 1.2 0-1.3 10 ^3/uL Eosinophils # (Auto) 0 0-0.8 10 ^3/uL Basophils # (Auto) 0.1 0-0.2 10 ^3/uL Nucleated Red Blood Cells 0.1 % Sodium Level 139 # 136-145 mmol/L Potassium Level 3.9 3.5-5.1 mmol/L Chloride Level 108 #H 98-107 mmol/L Carbon Dioxide Level 21 20-31 mmol/L Anion Gap 10 5-15 Blood Urea Nitrogen 16 9-23 mg/dL Creatinine 1.24 H 0.550-1.02 mg/dL Glomerular Filtration Rate Calc 49 >90 mL/min BUN/Creatinine Ratio 12.9 10.0-20.0 Serum Glucose 405 *H 74-106 mg/dL Calcium Level 9.4 8.7-10.4 mg/dL Total Bilirubin 0.3 0.2-1.0 mg/dL Aspartate Amino Transferase (AST) 21 13-40 U/L Alanine Aminotransferase (ALT) 17 7-40 U/L Alkaline Phosphatase 68 46-116 U/L Total Protein 6.7 5.7-8.2 g/dL Albumin 3.5 3.2-4.8 g/dL Urine Color Light-yellow Yellow Urine Clarity Clear Clear Urine pH 5.0 5.0-9.0 Urine Specific [place] 1.031 1.001-1.035 Urine Protein Trace H Negative Urine Ketones 1+ H Negative Urine Blood Negative Negative /uL Urine Nitrite Negative Negative Urine Bilirubin Negative Negative Urine Urobilinogen Normal Negative mg/dL Urine Leukocyte Esterase Negative Negative /uL Urine RBC 1 0 - 4 /hpf Urine WBC 1 0 - 5 /hpf Urine Squamous Epithelial Cells Few <5 /hpf Urine Bacteria None seen None Seen /hpf Urine Yeast (Budding) Occasional None Seen /hpf Urine Creatinine 43.29 30.0-125.0 mg/dL Urine Sodium 53 40-220 mmol/L Urine Glucose 4+ H Normal mg/dL Urine Opiates Screen Neg NEGATIVE Urine Fentanyl Screen Pos NEGATIVE Urine Barbiturates Screen Neg NEGATIVE Urine Phencyclidine Screen Neg NEGATIVE Urine Amphetamines Screen Neg NEGATIVE Urine Benzodiazepines Screen Pos NEGATIVE Urine Cocaine Screen Neg NEGATIVE Urine Cannabinoids Screen Neg NEGATIVE Troponin I High Sensitivity 31 </=34 ng/L Test 05/02/24 20:39 Range/Units B-Type Natriuretic Peptide 18.11 0-100 pg/mL Beta-Hydroxybutyric Acid 1.778 H < 0.4 mmol/L Microbiology Date/Time Source Procedure Growth Status 05/03/24 03:45 Nose MRSA Screen - Final Complete Assessment Impression: Acute hypoxic respiratory failure On mechanical ventilator Septic shock Pneumonia, likely gram negative Hx of nicotine dependence Morbid Obesity BMI 40 Plan: s/p intubation on mechanical ventilator. CXR image and report reviewed. Devices in place. Pulmonary congestion. No pneumothorax. No pleural effusion. ABG reviewed. Compensated. Vent settings: AC mode; RR 16 -->20, VT 450, PEEP 5 -->8, FiO2 40% RR increased to 20, PEEP increased to 8 Obtain ABG in 1 hour Titrate FIO2 to keep O2 saturation above 90%. VAP bundle. Daily ABG and CXR while intubated Sedate for ventilator synchrony - Propofol, Fentanyl Continue antibiotics. F/u cultures. On pressors for hemodynamic support Levophed 14 mcg/min Titrate to keep mean arterial pressure greater than 65 mmHg. Accu-Cheks, ISS. Monitor renal function Monitor electrolytes. Supplement as necessary. Monitor ins and outs. Obesity - complicates all care. GI prophylaxis. DVT prophylaxis. Prognosis: Poor given patient's multiple co-morbidities. Condition: Critical Rest of plan per hospitalist and other consultants. A total of 35 minutes of critical care time was spent reviewing the patient record, examining the patient, making a diagnostic and therapeutic plan, d iscussing this plan with the medical personnel, following up on diagnostic studies and following the patient for clinical stability excluding any and all procedures. At least 50% of this time was spent in direct, [id number] contact. Thank you, Dr. Manan Ahn, for allowing me to participate in this patient's care. Further recommendations will depend on the patient's clinical course. Please do not hesitate to contact me if you have any questions or concerns. This medical document was created using an electronic medical record system with [employer] dictation system. Although these documentations are being carefully reviewed, there may still be some phonetic and typographical changes. The errors are purely typographical, due to imperfection on the software program, and do not reflect any compromise in the patient's medical care. Plan discussed with: Other (ABIMAEL Mata/MD Colbert) YOLANDA COLE MD May 03, 2024 23:39
[2024-05-04] VITALS (113 sets, daily range): BP systolic 66–138; BP diastolic 38–71; PULSE 69–116; RESP 11–26; TEMP 98.6–100.2; O2SAT 94–100
[2024-05-04 03:42] LABS: Basophils # (auto) 0.1 10 ^3/uL (0-0.2); Basophils % (auto) 1.2 % (0.0-2.0); Eosinophils # (auto) 0.1 10 ^3/uL (0-0.8); Eosinophils % (auto) 1.3 % (0.0-7.0); Hematocrit 39.2 % (36.0-46.0); Hemoglobin 13.2 g/dL (12.2-16.2); Lymphocytes # (auto) 2.8 10 ^3/uL (0.4-5.4); Lymphocytes % (auto) 26.4 % (10.0-50.0); Mean Corpuscular Hemoglobin 29.2 pg (28.0-32.0); Mean Corpuscular Hgb Conc. 33.6 g/dL (32.0-36.0); Mean Corpuscular Volume 87.2 fL (80.0-100.0); Monocytes # (auto) 0.7 10 ^3/uL (0-1.3); Neutrophils # (auto) 6.8 10 ^3/uL (1.6-8.6); Neutrophils % (auto) 64.1 % (37.0-80.0); Nucleated Red Blood Cells % 0.1 %; Platelet Count (auto) 208 10^3/uL (140-450); Red Cell Distribution Width 14.8 % (11.8-14.3); White Blood Cell 10.6 10^3/uL (4.4-10.8)
[2024-05-04 04:13] LABS: Sodium 144 mmol/L (136-145)
[2024-05-04 04:14] LABS: Anion Gap 11 (5-15); Calcium 9.8 mg/dL (8.7-10.4); Carbon Dioxide 22 mmol/L (20-31)
[2024-05-04 04:20] LABS: BUN/Creatinine Ratio 15.4 (10.0-20.0); Blood Urea Nitrogen 14 mg/dL (9-23)
[2024-05-04 04:21] LABS: Chloride 111 mmol/L (98-107); Glucose 246 mg/dL (74-106); Magnesium 1.3 mg/dL (1.6-2.6); Potassium 3.3 mmol/L (3.5-5.1)
[2024-05-04] MEDS: MAGNESIUM SULFATE 1GM/100ML 100 ML IV ONE (05:16)
[2024-05-04] MEDS: POTASSIUM CHL 20MEQ/100ML 100 ML IV ONE (05:16)
--- NOTE | 2024-05-04 05:45 | DVH ---
CHEST RADIOGRAPH Indication: PT INTUBATED Technique: Single frontal view of the chest was obtained COMPARISON: XY CHEST PORTABLE on DOS: 05/03/24, XY CHEST PORTABLE on DOS: 05/02/24, XY CHEST XRAY 1 VIE W on DOS: 03/10/24, XY CHEST PORTABLE on DOS: 03/09/24, XY CHEST PORTABLE on DOS: 03/07/24 FINDINGS: Lines and Tubes: Unchanged Lungs: Improved aeration of the left lower lobe with residual atelectasis persist. Pleura: No effusion. No pneumothorax. Cardiomediastinal contours: Unchanged Bones: Unremarkable IMPRESSION: 1. Improved aeration of the left lower lobe with residual atelectasis persist.
[2024-05-04 07:23] LABS: Base Excess -4.4 mmol/L (-2.0-3.0)
[2024-05-04] MEDS: PANTOPRAZOLE 40 MG/10 ML VIAL INJ IV SCH (07:44)
[2024-05-04] MEDS: INSULIN LANTUS (GLARGINE) 1 /0.01ml (100units/ml) SC SCH (07:51)
[2024-05-04] MEDS ORDERED: CEFEPIME 1GM/ 50ML 50 ML IV SCH (10:00)
[2024-05-04] MEDS: VANCOMYCIN 1.25GM/250ML 250 ML IV SCH (12:01)
[2024-05-04] MEDS: MAGNESIUM SULFATE 1GM/100ML 100 ML IV SCH (12:28)
[2024-05-04] MEDS: POTASSIUM CHL 20MEQ/100ML 100 ML IV SCH (12:32)
--- NOTE | 2024-05-04 14:05 | DVHPN2 ---
Subjective The patient is seen and examined at bedside. Remained intubated. On Levophed. Reviewed: Care Plan, H&P, Labs, Medications, Previous Orders, Radiology Changes from previous H/P or p: No Changes Objective Vitals Vital Signs Date Time Temp Pulse Resp B/P (MAP) Pulse Ox O2 Delivery O2 Flow Rate FiO2 05/04/24 14:01 86 20 101/42 (61) 97 35 05/04/24 13:30 Mechanical Ventilator+ 05/04/24 13:15 98.6 209.5 05/02/24 22:10 0 Intake/Output Intake and Output 05/04/24 07:00 Intake Total 1709.70 ml Output Total 1770 ml Balance -60.30 ml Intake Oral 100 ml IV Total 1609.70 ml Output Urine Total 1770 ml Stool Total 0 ml General Appearance: Other (Intubated, on vent, unable to exam) HEENT: Atraumatic, PERRLA, Mucous membr. moist/pink Neck: Supple Lungs: Clear to auscultation, Normal air movement Cardiovascular: Regular rate, Normal S1, Normal S2, No murmurs, Gallops, Rubs Abdomen: Normal bowel sounds, Soft, No tenderness Neuro: Other (Intubated, on vent, unable to exam) Medications Current Medications Medications Dose Ordered Sig/Suzette Route Start Time Stop Time Status Last Admin Dose Admin Propofol 100 ml @ 3.39 mls/hr Q24H IV 05/03/24 01:53 05/04/24 10:13 23.73 MLS/HR Midazolam HCl 50 ml @ 1 mls/hr Q24H IV 05/03/24 00:10 05/04/24 05:28 4 MLS/HR Fentanyl Citrate 250 ml @ 2.5 mls/hr Q24H IV 05/03/24 00:00 05/04/24 02:41 17.5 MLS/HR Norepinephrine Bitartrate 250 ml @ 3.75 mls/hr Q24H IV 05/03/24 02:15 05/04/24 09:30 22.5 MLS/HR Vancomycin HCl 0 ml @ 0 mls/hr UD IV 05/03/24 02:15 Pantoprazole Sodium 40 mg DAILY IV 05/04/24 10:00 05/04/24 07:44 40 MG Acetaminophen 650 mg Q6HP PRN CO 05/03/24 02:15 Insulin Glargine 15 units DAILY@1000 SC 05/04/24 10:00 05/04/24 07:51 15 UNITS Diagnostic Test (Pha) 1 strip IQ4HR 05/03/24 08:00 05/04/24 12:05 1 STRIP Insulin Human Regular IQ4HR SC 05/03/24 08:00 05/04/24 12:04 6 UNITS Dextrose 50 ml UD PRN IV 05/03/24 04:15 Enoxaparin Sodium 110 mg Q12HR SC 05/03/24 10:00 05/04/24 07:45 110 MG Cefepime/Dextrose 50 ml @ 12.5 mls/hr Q8H IV 05/03/24 18:00 05/04/24 07:45 12.5 MLS/HR Vasopressin 20 units/Sodium Chloride 100 ml @ 9 mls/hr Q11H7M IV 05/03/24 17:00 Phenylephrine HCl 250 ml @ 30 mls/hr Q8H20M IV 05/03/24 17:00 Vancomycin HCl 250 ml @ 200 mls/hr Q12H IV 05/04/24 12:00 05/04/24 12:01 200 MLS/HR Magnesium Sulfate/ Dextrose 100 ml @ 100 mls/hr Q1HR IV 05/04/24 12:00 05/04/24 14:59 05/04/24 13:09 100 MLS/HR Potassium Chloride 100 ml @ 50 mls/hr Q2H IV 05/04/24 11:45 05/04/24 15:44 05/04/24 12:32 50 MLS/HR Laboratory Results Laboratory Tests 05/04/24 03:23 Chemistry Test 05/04/24 03:23 Calcium Level 9.8 mg/dL (8.7-10.4) Magnesium Level 1.3 mg/dL (1.6-2.6) L Urinalysis Test 05/03/24 01:06 Urine Color Light-yellow (Yellow) Urine Clarity Clear (Clear) Urine pH 5.0 (5.0-9.0) Urine Specific [place] 1.031 (1.001-1.035) Urine Protein Trace (Negative) H Urine Ketones 1+ (Negative) H Urine Blood Negative /uL (Negative) Urine Nitrite Negative (Negative) Urine Bilirubin Negative (Negative) Urine Urobilinogen Normal mg/dL (Negative) Urine Leukocyte Esterase Negative /uL (Negative) Urine RBC 1 /hpf (0 - 4) Urine WBC 1 /hpf (0 - 5) Urine Squamous Epithelial Cells Few /hpf (<5) Urine Bacteria None seen /hpf (None Seen) Urine Yeast (Budding) Occasional /hpf (None Urine Creatinine 43.29 mg/dL (30.0-125.0) Urine Sodium 53 mmol/L (40-220) Urine Glucose 4+ mg/dL (Normal) H Blood Gas Results Test 05/03/24 18:35 05/04/24 07:09 Arterial Blood pH 7.348 (7.350-7.450) 7.382 (7.350-7.450) FiO2 % 40.0 40.0 Microbiology Microbiology Date/Time Source Procedure Growth Status 05/03/24 03:45 Nose MRSA Screen - Final Complete 05/03/24 01:06 Voided Urine Urine Culture - Preliminary Resulted 05/02/24 23:50 Blood Blood Culture - Preliminary NO GROWTH AFTER 24 HOURS OF INCUBATION. Resulted 05/02/24 22:50 Sputum Gram Stain Pending Resulted 05/02/24 22:50 Sputum Respiratory Culture - Preliminary Resulted Labs and/or images reviewed: Labs reviewed by me Assessment/Plan Assessment/Plan NEURO: Acute metabolic encephalopathy, likely due to sepsis/hyperglycemia Pituitary gland tumor, status post surgery History of depression/anxiety Patient is sedated and on mechanical ventilation, RASS score -2 CARDIOVASCULAR: Paroxysmal atrial fibrillation Mild aortic stenosis History of hypertension Echo from shows EF 65%, mild LV diastolic dysfunction with mild aortic stenosis Serial trop I is within normal limit, BNP is 18 PULMONARY: Acute hypoxic respiratory failure, likely due to pneumonia Sepsis, likely due to pneumonia Possible Pneumonia, likely due to Gram-positive Gram-negative bacteria/viral Obstructive sleep apnea Check influenza type a, B and MRSA nares negative Patient is sedated and on mechanical ventilation with a setting of tidal volume 450, RR 16, FiO2 50%, and PEEP 5 ABGs shows mild metabolic acidosis has been respiratory compensation, pH 7.358 Empiric antibiotic of vancomycin and cefepime GASTROINTESTINAL: GENITOURINARY: DELANEY, on CKD 2, likely VMN Check FENa IV fluid ENDOCRINE: Uncontrolled DM type 2, with hyperglycemia Hb A1c from 03/08/2024 is 13.8 Lantus 15 units daily Insulin moderate SS METABOLIC: Obesity Mild hyponatremia, monitoring Mild hyperchloremia, monitoring Asymptomatic hypercalcemia, monitoring HEME: History of non-Hodgkin lymphoma, stage IV, status post chemotherapy In remission since 2009 INFECTIOUS DISEASE: Sepsis, likely due to pneumonia Panculture Empiric antibiotic of cefepime and vancomycin MUSCULOSKELETAL: DERMATOLOGY: DIET: NPO DVT prophylax: Lovenox GI prophylaxis: Protonix Code status: Goal of care discussed for the asthma for more than 20 minutes, full code LINES/DRAINS/ACCESS: ETT: Intubated on 05/02/2024 IV access: Right internal jugular CVC, placed on 05/02/2024 Drips: Propofol Versed Fentanyl DISPOSITION: ICU status Continuing current management. Continuing with ventilation support. Continuing with IV antibiotic. We will try to wean the patient off vasopressor. I will follow up with culture. This medical document was created using an electronic medical record system with [employer] dictation system. Although this document has been carefully reviewed, there may still be some phonetic and typographical errors. These areas are purely typographical due to imperfections of the software programs, and do not reflect any compromise in the patient's medical care. Critical care spent for this case today is 38 minutes, is exclude any billable procedure Plan discussed with: Other (RN) My Orders Orders - VASHTI JONAS MD Procedure Category Date Status Time * Gi Dvh Cycle Liaison CONS 05/03/24 Transmitted 16:01 *Consult CONS 05/03/24 Transmitted / 16:22 Magnesium Sulfate PHA 05/04/24 In Process 1gm/100ml 12:00 Potassium Chl PHA 05/04/24 In Process 20meq/100ml 11:45 Cover Wound With Dry LUCERO 05/04/24 In Process Dressing 11:04 Date of Service: May 04, 2024 Billing Provider: VASHTI JONAS MD Common Visit Codes: [id number] INP/OBS CARE(HIGH) VASHTI JONAS MD May 04, 2024 14:05
[2024-05-04] MEDS: ACETAMINOPHEN 650 MG RECT SUPP PR PRN (20:12)
--- NOTE | 2024-05-04 23:41 | DVHPN2 ---
Progress Note - Dictate Date Seen: May 04, 2024 Medical Necessity Reason Pt with a Central, PICC or Fol: Yes The following are medically ne: Johnson Catheter Reason for johnson catheter: Strict I&O Subjective Patient seen and examined at bedside. Sedated, intubated on mechanical ventilator. Overnight events reviewed. vital signs Vital Sign Date Time Temp Pulse Resp B/P (MAP) Pulse Ox O2 Delivery O2 Flow Rate FiO2 05/04/24 22:30 122/71 05/04/24 21:12 99.9 05/04/24 20:29 101 22 98 35 05/04/24 20:00 Mechanical Ventilator+ 05/02/24 22:10 0 Total Intake and Output 05/03/24 05/03/24 05/04/24 15:00 23:00 07:00 Intake Total 500 ml 556.11 ml 653.59 ml Output Total 600 ml 520 ml 650 ml Balance -100 ml 36.11 ml 3.59 ml medications Current Medications Medications Dose Ordered Sig/Suzette Route Start Time Stop Time Status Last Admin Dose Admin Propofol 100 ml @ 3.39 mls/hr Q24H IV 05/03/24 01:53 05/04/24 15:55 16.95 MLS/HR Midazolam HCl 50 ml @ 1 mls/hr Q24H IV 05/03/24 00:10 05/04/24 14:42 3 MLS/HR Fentanyl Citrate 250 ml @ 2.5 mls/hr Q24H IV 05/03/24 00:00 05/04/24 14:43 20 MLS/HR Norepinephrine Bitartrate 250 ml @ 3.75 mls/hr Q24H IV 05/03/24 02:15 05/04/24 22:18 15 MLS/HR Vancomycin HCl 0 ml @ 0 mls/hr UD IV 05/03/24 02:15 Pantoprazole Sodium 40 mg DAILY IV 05/04/24 10:00 05/04/24 07:44 40 MG Acetaminophen 650 mg Q6HP PRN IA 05/03/24 02:15 05/04/24 20:12 650 MG Insulin Glargine 15 units DAILY@1000 SC 05/04/24 10:00 05/04/24 07:51 15 UNITS Diagnostic Test (Pha) 1 strip IQ4HR 05/03/24 08:00 05/04/24 19:43 1 STRIP Insulin Human Regular IQ4HR SC 05/03/24 08:00 05/04/24 19:42 6 UNITS Dextrose 50 ml UD PRN IV 05/03/24 04:15 Enoxaparin Sodium 110 mg Q12HR SC 05/03/24 10:00 05/04/24 21:37 110 MG Cefepime/Dextrose 50 ml @ 12.5 mls/hr Q8H IV 05/03/24 18:00 05/04/24 18:02 12.5 MLS/HR Vasopressin 20 units/Sodium Chloride 100 ml @ 9 mls/hr Q11H7M IV 05/03/24 17:00 Phenylephrine HCl 250 ml @ 30 mls/hr Q8H20M IV 05/03/24 17:00 Vancomycin HCl 250 ml @ 200 mls/hr Q12H IV 05/04/24 12:00 05/04/24 12:01 200 MLS/HR Dexmedetomidine HCl 400 mcg/ Dextrose 100 ml @ 5.235 mls/ hr Q19H7M IV 05/04/24 17:00 05/04/24 22:36 5.235 MLS/HR objective Gen.: Patient lying in bed in medical ICU. Sedated, intubated on mechanical ventilator. Head: Normocephalic, atraumatic. Eyes: PERRLA. Ears: Normal external anatomy. Throat: Endotracheal tube and orogastric tube in place. Neck: Supple, trachea midline. Chest: Transmitted breath sounds bilaterally. Decreased air entry bilaterally. No wheezing. Bibasilar crackles. Cardiovascular: Positive S1, positive S2. Regular rate and rhythm. Abdomen: Positive bowel sounds in all 4 quadrants. Soft, nontender, nondistended. : Johnson in place. Normal external genitalia. Rectal: Deferred. Skin: Warm, dry. Intact. Extremities: 2+ radial pulses bilaterally. No lower extremity edema. Neuro: Sedated. laboratory and microbiology Laboratory Tests 05/04/24 03:23 Test 05/04/24 03:23 Range/Units Serum Glucose 246 H 74-106 mg/dL Assessment/Plan Impression: Acute hypoxic respiratory failure On mechanical ventilator Septic shock Pneumonia, likely gram negative Hx of nicotine dependence Morbid Obesity BMI 40 Events: Remains on vent support Vent settings: AC mode; RR 20, VT 450, PEEP 8, FiO2 40 -->35% Improving FiO2 requirements CXR image and report reviewed. Devices in place. Improved aeration of the left lower lobe with residual atelectasis. No pneumothorax. No pleural effusion. ABG reviewed. Compensated. Sedated on Propofol, Versed Fentanyl for analgesia On pressors for hemodynamic support Levophed 8 mcg/min Titrate to keep mean arterial pressure greater than 65 mmHg. Improving pressor requirements Monitor renal function Monitor electrolytes. Supplement as necessary. K, mag supplementation SBT/LIS OK for Precedex if necessary for agitation Labs and imaging reviewed. Rest of plan as noted below. Plan: s/p intubation on mechanical ventilator. Vent settings: AC mode; RR 20, VT 450, PEEP 8, FiO2 35% Titrate FIO2 to keep O2 saturation above 90%. VAP bundle. Daily ABG and CXR while intubated Sedate for ventilator synchrony Continue antibiotics. F/u cultures. On pressors for hemodynamic support Titrate to keep mean arterial pressure greater than 65 mmHg. Accu-Cheks, ISS. Monitor renal function Monitor electrolytes. Supplement as necessary. Monitor ins and outs. Obesity - complicates all care. GI prophylaxis. DVT prophylaxis. Prognosis: Poor given patient's multiple co-morbidities. Condition: Critical Rest of plan per hospitalist and other consultants. A total of 35 minutes of critical care time was spent reviewing the patient record, examining the patient, making a diagnostic and therapeutic plan, discussing this plan with the medical personnel, following up on diagnostic studies and following the patient for clinical stability excluding any and all procedures. At least 50% of this time was spent in direct, [id number] contact. Thank you, Dr. Manan Ahn, for allowing me to participate in this patient's care. Further recommendations will depend on the patient's clinical course. Please do not hesitate to contact me if you have any questions or concerns. This medical document was created using an electronic medical record system with [employer] dictation system. Although these documentations are being carefully reviewed, there may still be some phonetic and typographical changes. The errors are purely typographical, due to imperfection on the software program, and do not reflect any compromise in the patient's medical care. Plan discussed with: Other (ABIMAEL Mata) Critical Care Time(min): 35 YOLANDA COLE MD May 04, 2024 23:40
[2024-05-05] VITALS (109 sets, daily range): BP systolic 61–148; BP diastolic 27–85; PULSE 61–128; RESP 11–25; TEMP 76.1–99; O2SAT 87–100
[2024-05-05 03:54] LABS: Basophils # (auto) 0.1 10 ^3/uL (0-0.2); Basophils % (auto) 0.9 % (0.0-2.0); Eosinophils # (auto) 0.2 10 ^3/uL (0-0.8); Eosinophils % (auto) 2.6 % (0.0-7.0); Hemoglobin 12.2 g/dL (12.2-16.2); Lymphocytes # (auto) 2.1 10 ^3/uL (0.4-5.4); Lymphocytes % (auto) 24.7 % (10.0-50.0); Mean Corpuscular Hemoglobin 28.6 pg (28.0-32.0); Mean Corpuscular Hgb Conc. 32.8 g/dL (32.0-36.0); Mean Corpuscular Volume 87.1 fL (80.0-100.0); Monocytes # (auto) 0.6 10 ^3/uL (0-1.3); Monocytes % (auto) 6.4 % (0.0-12.0); Neutrophils # (auto) 5.7 10 ^3/uL (1.6-8.6); Neutrophils % (auto) 65.4 % (37.0-80.0); Platelet Count (auto) 187 10^3/uL (140-450); Red Blood Cells 4.25 10^6/uL (4.0-5.20); Red Cell Distribution Width 15.1 % (11.8-14.3); White Blood Cell 8.7 10^3/uL (4.4-10.8)
[2024-05-05 04:37] LABS: Alanine Aminotransferase 23 U/L (7-40); Albumin 3.2 g/dL (3.2-4.8); Alkaline Phosphatase 71 U/L (46-116); Anion Gap 9 (5-15); BUN/Creatinine Ratio 10.8 (10.0-20.0); Blood Urea Nitrogen 11 mg/dL (9-23); Calcium 9.7 mg/dL (8.7-10.4); Magnesium 1.8 mg/dL (1.6-2.6); Potassium 3.5 mmol/L (3.5-5.1); Sodium 141 mmol/L (136-145)
[2024-05-05 04:38] LABS: Bilirubin, Total 0.5 mg/dL (0.2-1.0)
[2024-05-05 04:39] LABS: Aspartate Aminotransferase 86 U/L (13-40); Carbon Dioxide 20 mmol/L (20-31); Chloride 112 mmol/L (98-107); Glucose 212 mg/dL (74-106)
--- NOTE | 2024-05-05 05:09 | DVH ---
CHEST RADIOGRAPH Indication: intubated Technique: Single frontal view of the chest was obtained Comparison: XY CHEST PORTABLE on DOS: 05/04/24 FINDINGS: Lines and Tubes: Right central venous catheter terminates in the superior vena cava. The enteric tube courses below the left hemidiaphragm and the tip extends outside the field of view. The endotracheal tube terminates 3.8 cm above the padma. Lungs: There is a left basilar opacities similar to prior study. Pleura: No effusion. No pneumothorax. Cardiomediastinal contours: Unremarkable Bones: No acute osseous abnormality. IMPRESSION: 1. Stable position of the support lines and tubes. 2. Persistent left basilar opacity.
[2024-05-05 06:36] LABS: Base Excess -6.4 mmol/L (-2.0-3.0)
[2024-05-05] MEDS ORDERED: Glucerna 1.2 Cal 1Liter BOTTLE GT SCH (10:00)
[2024-05-05] MEDS: SODIUM CHLORIDE 0.9% 250 ML IV ONE (10:15)
[2024-05-05] MEDS: DOCUSATE ORAL LIQUID 100 MG/10 ML UD GT SCH (10:16)
--- NOTE | 2024-05-05 10:56 | DVH ---
US BiLat Lower DVT HISTORY: rule out DVT COMPARISON: None TECHNIQUE: Duplex Doppler evaluation of the deep venous system of the lower extremity from the common femoral veins, superficial femoral vein, great saphenous vein, deep femoral vein, popliteal vein, an d calf veins, including color Doppler and spectral/pulsed waveform analysis, was performed. FINDINGS: Right: - Common femoral vein: Compressible - Deep femoral vein: Compressible - Femoral vein: Compressible - Popliteal vein: Compressible - Posterior tibial vein: Waveforms present - Other: Nothing Left: - Common femoral vein: Compressible - Deep femoral vein: Compressible - Femoral vein: Compressible - Popliteal vein: Compressible - Posterior tibial vein: Waveforms present - Other: Nothing IMPRESSION: No right or left lower extremity deep venous thrombosis.
--- NOTE | 2024-05-05 10:59 | DVH ---
INDICATION: rule out cholecystitis ; abdominal pain TECHNIQUE: Multiple real-time sonographic images were obtained of the right upper quadrant. COMPARISON: 05/03/2024 FINDINGS: Evaluation is limited due to obscuration from bowel gas. The liver demonstrates coarsened echotexture without focal mass lesions. The liver measures 20 cm. T here is no intrahepatic or extrahepatic ductal dilatation. The common duct measures 8 mm. There is a calcified gallstone. The gallbladder wall measures 0.4 mm and is within normal limits. The right kidney measures 9.7 cm. The right kidney is normal in contour, size, and shape. The echo genicity is normal. There is no hydronephrosis. The pancreas is not well visualized due to overlying bowel gas. IMPRESSION: Cholelithiasis without sonographic evidence of acute cholecystitis. Heterogeneous liver echotexture s uggestive of chronic liver disease. Hepatomegaly.
--- NOTE | 2024-05-05 18:37 | DVHCONRES ---
Date Seen: May 05, 2024 Resident Creating Document: ORION HILTON RESIDENT Referring Physician Dr. Ahn. Reason for Consultation [facility] History of Present Illness 64-year-old female with a history of type 2 diabetes, non-Hodgkin lymphoma in remission since 2009, and pituitary gland tumors (status post surgeries in 1985 and 2010), history of anxiety depression, paroxysmal atrial f ibrillation, mild aortic stenosis, history of hypertension, HFpEF, SRI, CKD stage 2, chronic obesity, was brought to the hospital due to altered level of consciousness (ALOC). Her found her confused and lying on the floor. Upon arrival, she was restless and required sedation, intubation, and mechanical ventilation. She lives at home, is mobile at baseline, is an ex-smoker, and drinks alcohol occasionally. She has allergies to latex, penicillin, and sulfa antibiotics. Patient was sedated and on mechanical ventilation. Limited history, bedside noted who is also poor historian but denies any history of upper or lower GI bleeding. Occasional 1 episode of mild brown aspirate in the NG tube otherwise clear green bile aspirate and no signs of active bleeding noted with stable H&H. Past Medical History type 2 diabetes, non-Hodgkin lymphoma in remission since 2009, and pituitary gland tumors (status post surgeries in 1985 and 2010), history of anxiety depression, paroxysmal atrial fibrillation, mild aortic stenosis, history of hypertension, HFpEF, SRI, CKD stage 2, chronic obesity Past Surgical History pituitary gland tumor (status post surgery 2 times in 1985 and 2010) Family History: FH: alcohol abuse G8 FATHER, Onset:40's - 50 G8 BROTHER, Onset:50's - 60 FH: cancer G8 MOTHER, Onset:Unknown Social History Patient lives with the has been at home, mobile at baseline, ex-smoker, drink alcohol occasionally, lives with . but has poor knowledge of her health issues. Allergies: Coded Allergies: Latex (Verified Allergy, Mild, 03/08/24) RASH Penicillins (Verified Allergy, Unknown, 03/08/24) Sulfa Antibiotics (Verified Allergy, Unknown, 03/08/24) Home Meds Active Scripts Levofloxacin Hemihydrate (LEVAQUIN 500 MG) 500 Mg Tab, 1.5 TAB PO DAILY for 7 Days, #11 TAB Prov:CHE YOON RESIDENT 03/11/24 Cyclobenzaprine Hcl (Cyclobenzaprine Hcl) 5 Mg Tab, 1 TAB PO TID for 5 Days, #15 TAB Prov:NAY GARCIAS MD 02/08/22 Hydrocodone-Acetaminophen (Hydrocodone Bitartrate/AC 5-325 mg) 1 Tab Tab, 1 TAB PO TID for 5 Days, #15 TAB Prov:NAY GARCIAS MD 02/08/22 Metoprolol Tartrate (Lopressor) 25 Mg Tb, 12.5 MG PO Q12HR, #60 TAB 0 Refills Prov:INO GRANADOS MD 09/25/19 Apixaban Base (ELIQUIS) 5 Mg Tab, 5 MG PO BID, #60 TAB Prov:INO GRANADOS MD 09/25/19 Ascorbic Acid (Gnp Vitamin C W/Mary Hips) 1,000 Mg Tab, 1000 MG PO DAILY, #30 TAB Prov:INO GRANADOS MD 09/25/19 Pantoprazole Sodium Sesquihydr (Protonix) 40 Mg Tab, 40 MG PO DAILY, #30 TAB Prov:INO GRANADOS MD 09/25/19 Potassium Chloride (Klor-Con 10) 10 Meq Tab, 10 MEQ PO DAILY, #3 TAB Prov:INO GRANADOS MD 09/25/19 Furosemide (Lasix) 20 Mg Tb, 1 TAB PO DAILY, #3 TAB 1 Refill Prov:INO GRANADOS MD 09/25/19 Zinc Sulfate (Zinc Sulfate) 220 Mg Tab, 220 MG PO DAILY, #14 TAB Prov:INO GRANADOS MD 09/25/19 Reported Medications Empagliflozin (Jardiance) 10 Mg Tab, 10 MG PO DAILY, TAB 09/18/19 Metformin Hydrochloride (Metformin Hcl) 500 Mg Tab, 500 MG PO BID for 30 Days, MG 09/18/19 Sertraline Hcl (Sertraline Hcl) 50 Mg Tab, 100 MG PO DAILY for 30 Days, MG 09/18/19 Ropinirole Hydrochloride (Requip) 0.5 Mg Tab, 0.25 MG PO Q8HPRN, TAB 06/11/18 Glipizide (Glipizide) 10 Mg Tab, 1 TAB PO BID, #60 TAB 5 Refills 06/08/18 Tramadol Hcl (Tramadol Hcl) 50 Mg Tab, 50 MG PO Q6HP, MG 06/08/18 Gabapentin (Gabapentin) 600 Mg Tab, 600 MG PO TID for 30 Days, MG 06/08/18 Cabergoline (Cabergoline) 0.5 Mg Tab, 0.5 MG PO 2XW, TAB 06/08/18 Atorvastatin Calcium (ATORVASTATIN CALCIUM) 20 Mg Tab, 1 TAB PO DAILY, #30 TAB 5 Refills 06/08/18 Methadone Hcl (METHADONE HCL TABLET) 10 Mg Tb, 1 TAB PO DAILY, #120 TAB 06/08/18 Current Medications Current Medications Medications (Trade) Dose Ordered Sig/Suzette Route PRN Reason Start Time Stop Time Status Last Admin Enteral Nutritional Formula (Glucerna 1.2 Jamison) 1,000 ml 30ML/HR GT 05/05/24 10:00 Docusate Sodium (Colace Liquid) 100 mg BID GT 05/05/24 10:00 05/05/24 10:16 Review of Systems Patient is likely sedated, ventilated, on NG tube negative suction intermittently. CONSTITUTIONAL: Fever, night sweats, weight loss, Lymphadenopathy, ecchymoses, fatigue: Negative DERMATOLOGIC: Rash, New/growing/changing skin lesions: Negative HEENT: Vision change, eye pain, Rhinorrhea, sinus pain, epistaxis, dysphagia, odynophagia, globus sensation, Change in hearing, tinnitus, vertigo, otalgia, Dental problems, oral ulcers or lesions: : Negative ENDOCRINE: Weight change, heat or cold intolerance, tremor, insomnia, neck pain or swelling, Polyuria, polydipsia, polyphagia, Abnormal hair growth, change in nails: Negative CARDIOVASCULAR: Chest pain, palpitations, syncope, Edema, cyanosis, claudication, Orthopnea, paroxysmal nocturnal dyspnea: Negative PULMONARY: Shortness of breath, dyspnea with exertion, Cough, hemoptysis, wheezing, chest pain : Negative GI: Nausea, vomiting, diarrhea, melena, hematochezia, Change in appetite, abdominal pain, change in bowel habits or stools: Negative : Dysuria, frequency, urgency, Urinary incontinence, hematuria, foamy urine, nocturia, Change in libido, erectile dysfunction, Change in menses, dysmenorrhea, dyspaerunia, pelvic pain: : Negative MUSCULOSKELETAL: Joint swelling or pain, muscle pain, back pain: : Negative NEUROLOGIC: Headache, scotoma, Change in smell or taste, change in facial muscles, Muscle weakness, paresthesias, anesthesia, Ataxia, change in speech: Negative PSYCHIATRIC: Depression, anxiety, hallucinations, jami, suicidal/homicidal thoughts, Binging, purging: Negative Vital Signs Vital Signs Date Time Temp Pulse Resp B/P (MAP) Pulse Ox O2 Delivery O2 Flow Rate FiO2 05/05/24 18:00 20 95 Mechanical Ventilator+ 35 35 05/05/24 18:00 110 05/05/24 15:54 148/85 (106) 05/05/24 11:00 98.8 209.8 Physical Exam GENERAL APPEARANCE: Well developed, well nourished, alert and cooperative, and appears to be in no acute distress. HEENT: ET tube and NG tube noted patient is actively ventilated with minimal settings. Close to CPAP trial. ABDOMEN: Oral mucosa, Positive bowel sounds. Soft, mildly distended, nontender. No guarding or rebound. No masses. Slow GI transit otherwise unremarkable abdomen. Per rectal exam deferred. SKIN: Skin normal color, texture and turgor with no lesions or eruptions. NEUROLOGICAL: Could not check because of sedation and ventilation. SKIN: Skin normal color, texture and turgor with no lesions or eruptions. Labs/Diagnostic Data Labs Test 05/05/24 15:55 05/05/24 11:25 05/05/24 11:21 05/05/24 06:30 Range/Units POC Glucose 191 H 70-106 mg/dl Creatinine 0.88 0.550-1.02 mg/dL Glomerular Filtration Rate Calc 73 >90 mL/min Vancomycin Level Trough 18.3 H 5-10 ug/mL Hemoglobin A1c 13.2 H <5.7 % A1C Blood Gas Specimen Type Arterial Blood Gas Sample Site Right radial Blood Gas Patient Temperature 37.0 Arterial Blood Date Drawn [id number] Arterial Blood pH 7.350 7.350-7.450 Arterial Blood Partial Pressure CO2 33.9 32.0-45.0 mmHg Arterial Blood Partial Pressure O2 83.7 83.0-108.0 mmHg Arterial Blood HCO3 18.3 L 21.0-28.0 mmol/L Arterial Blood Oxygen Saturation 96.0 94.0-98.0 % Arterial Blood Base Excess -6.4 L -2.0-3.0 mmol/L Arterial Blood Oxyhemoglobin 95.0 94.0-98.0 % Arterial Blood Carboxyhemoglobin 0.9 0.5-1.5 % Arterial Blood Methemoglobin 0.1 0.0-1.5 % Sammy Test Modified Blood Gas Total Hemoglobin 13.80 12.0-16.0 g/dL Blood Gas Set Respiration Rate 20.0 Blood Gas Modality Vent - ac FiO2 % 30.0 Blood Gas Tidal Volume 450.0 Blood Gas PEEP or CPAP 8.0 Test 05/05/24 03:20 05/04/24 07:09 05/04/24 03:23 05/03/24 07:40 Range/Units White Blood Count 8.7 4.4-10.8 10^3/uL Red Blood Count 4.25 4.0-5.20 10^6/uL Hemoglobin 12.2 12.2-16.2 g/dL Hematocrit 37.0 36.0-46.0 % Mean Corpuscular Volume 87.1 80.0-100.0 fL Mean Corpuscular Hemoglobin 28.6 28.0-32.0 pg Mean Corpuscular Hemoglobin Concent 32.8 32.0-36.0 g/dL Red Cell Distribution Width 15.1 H 11.8-14.3 % Platelet Count 187 140-450 10^3/uL Mean Platelet Volume 8.2 6.9-10.8 fL Neutrophils (%) (Auto) 65.4 37.0-80.0 % Lymphocytes (%) (Auto) 24.7 10.0-50.0 % Monocytes (%) (Auto) 6.4 0.0-12.0 % Eosinophils (%) (Auto) 2.6 0.0-7.0 % Basophils (%) (Auto) 0.9 0.0-2.0 % Neutrophils # (Auto) 5.7 1.6-8.6 10 ^3/uL Lymphocytes # (Auto) 2.1 0.4-5.4 10 ^3/uL Monocytes # (Auto) 0.6 0-1.3 10 ^3/uL Eosinophils # (Auto) 0.2 0-0.8 10 ^3/uL Basophils # (Auto) 0.1 0-0.2 10 ^3/uL Nucleated Red Blood Cells 0.0 % Sodium Level 141 136-145 mmol/L Potassium Level 3.5 3.5-5.1 mmol/L Chloride Level 112 H 98-107 mmol/L Carbon Dioxide Level 20 20-31 mmol/L Anion Gap 9 5-15 Blood Urea Nitrogen 11 9-23 mg/dL BUN/Creatinine Ratio 10.8 10.0-20.0 Serum Glucose 212 H 74-106 mg/dL Calcium Level 9.7 8.7-10.4 mg/dL Magnesium Level 1.8 1.6-2.6 mg/dL Total Bilirubin 0.5 0.2-1.0 mg/dL Aspartate Amino Transferase (AST) 86 H 13-40 U/L Alanine Aminotransferase (ALT) 23 7-40 U/L Alkaline Phosphatase 71 46-116 U/L Total Protein 6.0 5.7-8.2 g/dL Albumin 3.2 3.2-4.8 g/dL Blood Gas Spontaneous Rate 22 Blood Gas Inspiratory Pressure 21.0 Bl Gas Inspiratory/Expiratory Ratio 1:1.1 Specimen Drawn By doug rt Random Vancomycin Level 8.2 5-10 ug/mL Lactic Acid Level 1.9 0.4-2.0 mmol/L Test 05/03/24 06:29 05/03/24 03:45 05/03/24 01:06 05/02/24 23:05 Range/Units Blood Gas Liter Flow 60.00 Influenza Type A Antigen Negative Negative Influenza Type B Antigen Negative Negative Urine Color Light-yellow Yellow Urine Clarity Clear Clear Urine pH 5.0 5.0-9.0 Urine Specific [place] 1.031 1.001-1.035 Urine Protein Trace H Negative Urine Ketones 1+ H Negative Urine Blood Negative Negative /uL Urine Nitrite Negative Negative Urine Bilirubin Negative Negative Urine Urobilinogen Normal Negative mg/dL Urine Leukocyte Esterase Negative Negative /uL Urine RBC 1 0 - 4 /hpf Urine WBC 1 0 - 5 /hpf Urine Squamous Epithelial Cells Few <5 /hpf Urine Bacteria None seen None Seen /hpf Urine Yeast (Budding) Occasional None Seen /hpf Urine Creatinine 43.29 30.0-125.0 mg/dL Urine Sodium 53 40-220 mmol/L Urine Glucose 4+ H Normal mg/dL Urine Opiates Screen Neg NEGATIVE Urine Fentanyl Screen Pos NEGATIVE Urine Barbiturates Screen Neg NEGATIVE Urine Phencyclidine Screen Neg NEGATIVE Urine Amphetamines Screen Neg NEGATIVE Urine Benzodiazepines Screen Pos NEGATIVE Urine Cocaine Screen Neg NEGATIVE Urine Cannabinoids Screen Neg NEGATIVE Troponin I High Sensitivity 31 </=34 ng/L Test 05/02/24 20:39 Range/Units B-Type Natriuretic Peptide 18.11 0-100 pg/mL Beta-Hydroxybutyric Acid 1.778 H < 0.4 mmol/L Microbiology Date/Time Source Procedure Growth Status 05/03/24 03:45 Nose MRSA Screen - Final Complete 05/03/24 01:06 Voided Urine Urine Culture - Final Complete 05/02/24 23:50 Blood Blood Culture - Preliminary NO GROWTH AFTER 48 HOURS OF INCUBATION. Resulted 05/02/24 22:50 Sputum Gram Stain - Final Resulted 05/02/24 22:50 Sputum Respiratory Culture - Preliminary Resulted Assessment Assessment/impression: Brown aspirate in NG tube, H&H stable, negative NG aspirate, low probability of GI bleed Hepatomegally Cholelithiasis without cholecystitis Acute metabolic encephalopathy, likely due to sepsis/hyperglycemia Pituitary gland tumor, status post surgery History of depression/anxiety Patient is sedated and on mechanical ventilation, RASS score -2 Paroxysmal atrial fibrillation Mild aortic stenosis History of hypertension HFpEF noted in recent Echo Acute hypoxic respiratory failure, likely due to pneumonia Gram-positive Gram-negative bacteria/viral Obstructive sleep apnea Septic shock on vasopressor support to keep map over 65, leukocytosis improved DELANEY, on CKD 2, likely VMN Uncontrolled DM type 2,Hb A1c from 03/08/2024 is 13.8 Obesity grade 2 BMI 40 Mild hyponatremia, monitoring Mild hyperchloremia, monitoring Asymptomatic hypercalcemia, monitoring History of non-Hodgkin lymphoma, stage IV, status post chemotherapy In remission since 2009 Mild dyslipidemia Plan/Recommendation Plan: # Medication: pantoprazole 40 mg IV daily continue for GI prophylaxis. # Labs: Daily CBC to check with follow up for H&H transfuse only if major drop or hemoglobin below 7, CMP to trend. # Plan procedure: If H&H remained stable no need of further workup in-hospital. Continue intermittent negative suction of NG tube no blood noted. # please avoid NSAIDs, alcohol, spicy, highly acidic and caustic diets. # please scheduled follow up with GI as outpatient with Dr. Arce. Thank you so much for the opportunity to consult on your patient. GI team will follow the patient. In case of any questions or concerns please feel free to reach out. Case an action plan discussed with Dr. Lali Arce. Complex care planning needed total 49 minutes of detailed discussion. The patient and caregiver team agreed to the plan. Plan discussed with: Patient, Spouse, Other (Primary team, RN.) ORION HILTON RESIDENT May 05, 2024 18:37
[2024-05-05 21:51] LABS: Potassium 3.7 mmol/L (3.5-5.1); Sodium 142 mmol/L (136-145)
[2024-05-05 21:52] LABS: Anion Gap 8 (5-15); Carbon Dioxide 22 mmol/L (20-31)
[2024-05-05 21:53] LABS: Calcium 9.6 mg/dL (8.7-10.4)
[2024-05-05 21:57] LABS: Chloride 112 mmol/L (98-107); Glucose 185 mg/dL (74-106)
[2024-05-05 21:58] LABS: BUN/Creatinine Ratio 15.1 (10.0-20.0); Blood Urea Nitrogen 13 mg/dL (9-23)
[2024-05-05 21:59] LABS: Magnesium 1.4 mg/dL (1.6-2.6)
--- NOTE | 2024-05-05 22:15 | DVHPNRES ---
Progress Note Date Seen: May 05, 2024 Resident Creating Document: RACHELLE PATTERSON RESIDENT Medical Necessity Reason Pt with a Central, PICC or Fol: Yes The following are medically ne: Johnson Catheter Reason for johnson catheter: Strict I&O Subjective Review of Systems Patient seen and examined at bedside Currently sedated and intubated Review of system could not be done as patient is sedated Objective vital signs Vital Sign Date Time Temp Pulse Resp B/P (MAP) Pulse Ox O2 Delivery O2 Flow Rate FiO2 05/05/24 20:04 98 25 104/69 (81) 95 30 05/05/24 19:15 98.8 209.8 05/05/24 18:00 Mechanical Ventilator+ Total Intake and Output 05/04/24 05/04/24 05/05/24 14:59 22:59 06:59 Intake Total 1141.90 ml 524.42 ml 610.230 ml Output Total 750 ml 1050 ml Balance 1141.90 ml -225.58 ml -439.770 ml medications Current Medications Medications Dose Ordered Sig/Suzette Route Start Time Stop Time Status Last Admin Dose Admin Fentanyl Citrate 250 ml @ 2.5 mls/hr Q24H IV 05/03/24 00:00 05/05/24 17:07 2.5 MLS/HR Norepinephrine Bitartrate 250 ml @ 3.75 mls/hr Q24H IV 05/03/24 02:15 05/04/24 22:18 15 MLS/HR Vancomycin HCl 0 ml @ 0 mls/hr UD IV 05/03/24 02:15 Pantoprazole Sodium 40 mg DAILY IV 05/04/24 10:00 05/05/24 10:07 40 MG Acetaminophen 650 mg Q6HP PRN CA 05/03/24 02:15 05/04/24 20:12 650 MG Insulin Glargine 15 units DAILY@1000 SC 05/04/24 10:00 05/05/24 10:08 15 UNITS Diagnostic Test (Pha) 1 strip IQ4HR 05/03/24 08:00 05/05/24 20:06 1 STRIP Insulin Human Regular IQ4HR SC 05/03/24 08:00 05/05/24 20:10 3 UNITS Dextrose 50 ml UD PRN IV 05/03/24 04:15 Enoxaparin Sodium 110 mg Q12HR SC 05/03/24 10:00 05/05/24 10:08 110 MG Cefepime/Dextrose 50 ml @ 12.5 mls/hr Q8H IV 05/03/24 18:00 05/05/24 18:28 12.5 MLS/HR Vancomycin HCl 250 ml @ 200 mls/hr Q12H IV 05/04/24 12:00 05/05/24 12:27 200 MLS/HR Dexmedetomidine HCl 400 mcg/ Dextrose 100 ml @ 5.235 mls/ hr Q19H7M IV 05/04/24 17:00 05/04/24 22:36 5.235 MLS/HR Enteral Nutritional Formula 1,000 ml 30ML/HR GT 05/05/24 10:00 Docusate Sodium 100 mg BID GT 05/05/24 10:00 05/05/24 10:16 100 MG Calamine 1 applic QIDP PRN TOP 05/05/24 21:15 Diphenhydramine HCl 25 mg Q4HP PRN IV 05/05/24 21:15 Examination Examination General Appearance: Sedated intubated Respiratory: Clear to auscultation, Normal air movement, on mechanical ventilation Cardiovascular: Regular rate, Normal S1, Normal S2 Abdominal: Normal bowel sounds, soft Skin: Macular rash spots near left knee, right-sided alexander brownish discoloration and warmth to touch Neuro: Sedated and intubated laboratory and microbiology Laboratory Tests 05/05/24 21:20 05/05/24 03:20 Test 05/05/24 21:20 Range/Units Serum Glucose 185 H 74-106 mg/dL Microbiology Date/Time Source Procedure Growth Status 05/03/24 03:45 Nose MRSA Screen - Final Complete 05/03/24 01:06 Voided Urine Urine Culture - Final Complete 05/02/24 23:50 Blood Blood Culture - Preliminary NO GROWTH AFTER 48 HOURS OF INCUBATION. Resulted 05/02/24 22:50 Sputum Gram Stain - Final Resulted 05/02/24 22:50 Sputum Respiratory Culture - Preliminary Resulted Labs and/or images reviewed: Labs reviewed by me, Image(s) reviewed by me Problem List/Assessment/Plan Problem List/Assessment/Plan Assessment/plan Neurology # metabolic encephalopathy due to sepsis -Head CT # sedation -off sedation for CPAP trial # peripheral neuropathy -we will resume home meds once patient is extubated Cardiology # shock likely septic -currently on norepinephrine # heart failure with reduced ejection fraction, chronic -resume home medication once patient is extubated and off pressors # history of atrial fibrillation, currently sinus rhythm -patient was on therapeutic Lovenox, switched to prophylactic dose # hypertension Currently in shock # mild aortic stenosis with calcified aortic leaflets -seen on echo 03/09/2024 Respiratory # acute hypoxic respiratory failure, likely due to pneumonia Currently on mechanical ventilation, intubated on 05/02/2024 VC AC mode with a respiratory rate of 20, tidal volume 450, 30% of FiO2 and peep of 8 # community-acquired pneumonia/MRSA- Gram-positive/Gram-negative -currently on IV antibiotics -sputum culture # obstructive sleep apnea -currently on mechanical ventilation Family patient she does not use CPAP/BiPAP at home Nephrology # DELANEY due to VMN, improving -monitor # hypokalemia Corrected # non-anion gap metabolic acidosis with compensatory respiratory alkalosis, likely due to DELANEY -monitor ABG # hypomagnesemia Corrected Infectious disease # sepsis with septic shock -elevated lactic acid, resolving -IV antibiotics Blood culture IV fluids were given #? Cellulitis right lower leg -IV antibiotics GI #? GI bleed -IV Protonix -monitor # cholelithiasis without cholecystitis Seen on ultrasound liver # hepatomegaly with heterogeneous liver echotexture suggestive of chronic liver disease -seen on ultrasound liver Endocrine # uncontrolled hyperglycemia likely due to diabetes # diabetes mellitus type 2 -insulin Lantus with sliding scale insulin Hematology/Oncology # mild anemia, normocytic Monitor # history of prolactinoma status post surgery, 2009 # history of non-Hodgkin lymphoma, 2012, remission Psychiatry # history of anxiety/depression -resume home meds once patient is extubated # history of opioid use disorder -will rehab/pre vocational counselor once patient is alert and oriented # history of tobacco use disorder will rehab/pre vocational counselor once patient is alert and oriented Nutrition Glucerna through NG tube DVT prophylaxis Lovenox 50 mg subcutaneous daily Peptic ulcer disease prophylaxis Protonix 40 mg IV daily Bowel regimen Colace Lines Right IJ CVC 05/02/2024 Johnson's catheter 05/03/2024 Paulie Norepinephrine Patient failed CPAP trial today CPAP trial in the a.m. Case discussion with Code status discussed with the family for greater than 23 minutes, full code Family at bedside updated about the condition of the patient Critical care time excluding procedures and including CPAP trial :83 min Plan discussed with: Other My Orders My Orders Orders - RACHELLE PATTERSON Procedure Category Date Status Time LIVER US 05/05/24 Resulted 09:24 Bilat Lower Dvt US 05/05/24 Resulted 09:24 Nutritional PHA 05/05/24 In Process Supplements (Glucerna 10:00 Docusate Sodium PHA 05/05/24 In Process Liquid (Colace Liquid) 10:00 Echo 2d Mode Cardiac US 05/05/24 Logged DOP 10:12 PTPTT LAB 05/06/24 Verified 04:00 Basic Metabolic Panel LAB 05/06/24 Verified 04:00 Magnesium LAB 05/06/24 Verified 04:00 Chest Portable XY 05/06/24 Logged 04:00 Abg W/ Co-Ox RT 05/06/24 Logged 04:00 Covid19 Antigen Tita LAB 05/05/24 Logged 15:51 Cpap Trial For Am ORDERS 05/05/24 Transmitted 15:56 Calamine Lotion PHA 05/05/24 In Process 21:15 Diphenhdramine PHA 05/05/24 In Process Injection (Benadryl 21:15 Magnesium Sulfate PHA 05/05/24 Logged 1gm/100ml 22:15 Potassium Chl PHA 05/05/24 Logged 20meq/100ml 22:15 Date of Service: May 05, 2024 Billing Provider: PARKER ADAME MD Common Visit Codes: [id number] CARE 30-74 MIN, [id number] CARE-EACH +30MIN RACHELLE PATTERSON RESIDENT May 05, 2024 22:15 PARKER ADAME MD May 06, 2024 12:28
[2024-05-05] MEDS: CALAMINE TOPical LOTION180 ML TOP PRN (22:43)
[2024-05-05] MEDS: MAGNESIUM SULFATE 1GM/100ML 100 ML IV ONE (22:44)
[2024-05-05] MEDS: diphenhdrAMINE HCL 50 MG/1 ML VL IV PRN (22:44)
[2024-05-05] MEDS: POTASSIUM CHL 20MEQ/100ML 100 ML IV ONE (22:44)
[2024-05-06] VITALS (106 sets, daily range): BP systolic 84–197; BP diastolic 45–112; PULSE 57–135; RESP 11–33; TEMP 98.8–99; O2SAT 92–100
[2024-05-06 03:47] LABS: Basophils # (auto) 0 10 ^3/uL (0-0.2); Basophils % (auto) 0.6 % (0.0-2.0); Eosinophils # (auto) 0.2 10 ^3/uL (0-0.8); Eosinophils % (auto) 2.3 % (0.0-7.0); Hematocrit 33.9 % (36.0-46.0); Hemoglobin 11.3 g/dL (12.2-16.2); Lymphocytes # (auto) 1.3 10 ^3/uL (0.4-5.4); Lymphocytes % (auto) 19.4 % (10.0-50.0); Mean Corpuscular Hemoglobin 29.2 pg (28.0-32.0); Mean Corpuscular Hgb Conc. 33.3 g/dL (32.0-36.0); Mean Corpuscular Volume 87.6 fL (80.0-100.0); Monocytes # (auto) 0.4 10 ^3/uL (0-1.3); Neutrophils # (auto) 4.9 10 ^3/uL (1.6-8.6); Neutrophils % (auto) 71.7 % (37.0-80.0); Nucleated Red Blood Cells % 0.1 %; Platelet Count (auto) 164 10^3/uL (140-450); Red Blood Cells 3.86 10^6/uL (4.0-5.20); Red Cell Distribution Width 15.1 % (11.8-14.3); White Blood Cell 6.9 10^3/uL (4.4-10.8)
[2024-05-06 03:53] LABS: Calcium 9.7 mg/dL (8.7-10.4); Potassium 3.7 mmol/L (3.5-5.1); Sodium 140 mmol/L (136-145)
[2024-05-06 03:54] LABS: Anion Gap 8 (5-15); Carbon Dioxide 22 mmol/L (20-31)
[2024-05-06 03:59] LABS: BUN/Creatinine Ratio 14.3 (10.0-20.0); Blood Urea Nitrogen 12 mg/dL (9-23)
[2024-05-06 04:00] LABS: Magnesium 1.7 mg/dL (1.6-2.6)
[2024-05-06 04:04] LABS: Chloride 110 mmol/L (98-107); Glucose 187 mg/dL (74-106)
[2024-05-06 04:06] LABS: INR 1.05 (0.9-1.15); Partial Thromboplastin Time 32.7 SEC (24.5-34.5); Prothrombin Time 11.1 sec (9.3-11.8)
--- NOTE | 2024-05-06 05:18 | DVH ---
CHEST RADIOGRAPH Indication: mech vent Technique: Single frontal view of the chest was obtained COMPARISON: XY CHEST PORTABLE on DOS: 05/05/24, XY CHEST PORTABLE on DOS: 05/04/24, XY CHEST PORTABLE o n DOS: 05/03/24, XY CHEST PORTABLE on DOS: 05/02/24, XY CHEST XRAY 1 VIEW on DOS: 03/10/24 FINDINGS: Lines and Tubes: Endotracheal tube, enteric catheter and right central venous catheter in satisfactor y position. Lungs: Left basilar subsegmental atelectasis. Pleura: No effusion. No pneumothorax. Cardiomediastinal contours: Unremarkable Bones: Unremarkable IMPRESSION: Lines and tubes in satisfactory position. No significant interval change.
[2024-05-06 08:57] LABS: Base Excess -4.1 mmol/L (-2.0-3.0)
[2024-05-06] MEDS ORDERED: FUROSEMIDE 20 MG/2 ML VIAL IV ONE (09:00)
[2024-05-06] MEDS ORDERED: ENOXAPARIN SOD 60 MG/0.6 ML SYRINGE SC SCH (10:00)
[2024-05-06] MEDS: MAGNESIUM SULFATE 1GM/100ML 100 ML IV SCH (11:21)
[2024-05-06] MEDS ORDERED: EPINEPHrine HCL 0.5 ML NEB NEB ONE (11:30)
[2024-05-06] MEDS: EPINEPHrine HCL 0.5 ML NEB ONE ×2 (11:31→11:45)
[2024-05-06] MEDS: EPINEPHrine HCL 0.5 ML NEB NEB ONE ×3 (11:35→11:58)
[2024-05-06] MEDS: methylPREDNISolone SOD SUCC 40 MG/ML VL ONE (11:41)
--- NOTE | 2024-05-06 12:00 | ECG ---
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
[2024-05-06] MEDS: methylPREDNISolone SOD SUCC 40 MG/ML VL IV ONE (12:02)
[2024-05-06] MEDS: IPRATROPIUM BROM 0.5 MG/2.5ML INH SOL NEB PRN (12:24)
[2024-05-06] MEDS: ALBUTEROL SULF 2.5 MG/0.5ML(0.5%) NEB SOLN NEB PRN (12:25)
--- NOTE | 2024-05-06 12:48 | DVHSR ---
APPROVED REPORT EXAM: Two-dimensional and M-mode echocardiogram with Doppler and color Doppler. Blood Pressure: 93/55 mmHg INDICATION r/o endocarditis RISK FACTORS Height: 5'4", Weight: 234 DIMENSIONS LVDd4.6 (3.8-5.7cm)LA (2D)3.7 (1.9-4.0cm)Aortic Root3.3 (2.0-3.7cm) LVDs3.3 (2.5-4.0cm)LA (MM) (1.9-4.0cm)Aortic Cusp Exc1.9 (1.5-2.0cm) EF (%) 56.0 (55-70%)Rt. Atrium3.1 (1.9-4.0cm)Asc. Aorta3.7 cm IVSd1.3 (0.7-1.1cm)RV (D)4.0 (1.8-2.4cm) PWd0.8 (0.7-1.1cm) Mitral Valve MitralMitral Stenosis E wave0.51m/sMV Mean GR.mmHg A wave0.64m/sMV Peak GR.mmHg E/A ratio0.82D MVAcm2 DECEL [id number] 1/2 Timems Aortic Valve Aortic ValveAortic Stenosis V11.02m/Pallavi Mean GR.6mmHg V21.62m/Pallavi Peak GR.10mmHg LVOT Diameter2.1 (1.8-2.4cm)Doppler AVA2.18cm2 Pulmonic Valve V20.86m/s Other Information Quality : Technically LimitedRhythm : Technically limited study due to body habitus and on vent. Conclusion lvef 55% by vsual estimate mild LVH left atrium enlarged no obvious valve vegetation noted no severe valve abnormalities noted
[2024-05-06] MEDS: FUROSEMIDE 20 MG/2 ML VIAL IV ONE (13:00)
--- NOTE | 2024-05-06 14:26 | DVHPNRES ---
Progress Note Date Seen: May 06, 2024 Resident Creating Document: RACHELLE PATTERSON RESIDENT Medical Necessity Reason Pt with a Central, PICC or Fol: Yes The following are medically ne: Johnson Catheter Reason for johnson catheter: Strict I&O Subjective Review of Systems pt seen and examined at bedside pt was on [facility] ventilator in the AM was extubated after CPAP trial developed post extubation stridor was started on BiPAP Objective vital signs Vital Sign Date Time Temp Pulse Resp B/P (MAP) Pulse Ox O2 Delivery O2 Flow Rate FiO2 05/06/24 12:33 122 128/67 94 Facial BiPAP Mask 40 05/06/24 10:50 10.0 05/06/24 10:20 15 05/06/24 08:00 98.8 98.8 Total Intake and Output 05/05/24 05/05/24 05/06/24 15:00 23:00 07:00 Intake Total 342.735 ml 150.705 ml 550.674 ml Output Total 350 ml 400 ml Balance 342.735 ml -199.295 ml 150.674 ml medications Current Medications Medications Dose Ordered Sig/Suzette Route Start Time Stop Time Status Last Admin Dose Admin Fentanyl Citrate 250 ml @ 2.5 mls/hr Q24H IV 05/03/24 00:00 05/05/24 17:07 2.5 MLS/HR Norepinephrine Bitartrate 250 ml @ 3.75 mls/hr Q24H IV 05/03/24 02:15 05/04/24 22:18 15 MLS/HR Vancomycin HCl 0 ml @ 0 mls/hr UD IV 05/03/24 02:15 Pantoprazole Sodium 40 mg DAILY IV 05/04/24 10:00 05/06/24 12:28 40 MG Acetaminophen 650 mg Q6HP PRN [place] 05/03/24 02:15 05/04/24 20:12 650 MG Insulin Glargine 15 units DAILY@1000 SC 05/04/24 10:00 05/06/24 11:20 15 UNITS Diagnostic Test (Pha) 1 strip IQ4HR 05/03/24 08:00 05/06/24 12:35 1 STRIP Insulin Human Regular IQ4HR SC 05/03/24 08:00 05/06/24 12:42 3 UNITS Dextrose 50 ml UD PRN IV 05/03/24 04:15 Cefepime/Dextrose 50 ml @ 12.5 mls/hr Q8H IV 05/03/24 18:00 05/06/24 10:00 12.5 MLS/HR Vancomycin HCl 250 ml @ 200 mls/hr Q12H IV 05/04/24 12:00 05/06/24 12:29 200 MLS/HR Dexmedetomidine HCl 400 mcg/ Dextrose 100 ml @ 5.235 mls/ hr Q19H7M IV 05/04/24 17:00 05/06/24 00:11 5.235 MLS/HR Enteral Nutritional Formula 1,000 ml 30ML/HR GT 05/05/24 10:00 Docusate Sodium 100 mg BID GT 05/05/24 10:00 05/05/24 22:42 100 MG Calamine 1 applic QIDP PRN TOP 05/05/24 21:15 05/05/24 22:43 1 APPLIC Diphenhydramine HCl 25 mg Q4HP PRN IV 05/05/24 21:15 05/05/24 22:44 25 MG Albuterol 2.5 mg Q4HPRN PRN NEB 05/06/24 11:00 05/06/24 12:25 2.5 MG Ipratropium [place] 0.5 mg Q4HPRN PRN NEB 05/06/24 11:00 05/06/24 12:24 0.5 MG Potassium Chloride 100 ml @ 50 mls/hr Q2H IV 05/06/24 12:45 05/06/24 16:44 Examination Examination General Appearance: in moderate distress Respiratory: Clear to auscultation, Normal air movement, on BiPAP, stridor heard Cardiovascular: Regular rate, Normal S1, Normal S2 Abdominal: Normal bowel sounds, soft Skin: Macular rash spots near left knee, right-sided alexander brownish discoloration and warmth to touch Neuro: alert, weak to talk, difficult to assess the neurological function laboratory and microbiology Laboratory Tests 05/06/24 03:00 Test 05/06/24 03:00 Range/Units Serum Glucose 187 H 74-106 mg/dL Microbiology Date/Time Source Procedure Growth Status 05/03/24 03:45 Nose MRSA Screen - Final Complete 05/03/24 01:06 Voided Urine Urine Culture - Final Complete 05/02/24 23:50 Blood Blood Culture - Preliminary NO GROWTH AFTER 72 HOURS OF INCUBATION. Resulted 1/17/25 22:50 Sputum Gram Stain - Final Complete 05/02/24 22:50 Sputum Respiratory Culture - Final Complete Labs and/or images reviewed: Labs reviewed by me, Image(s) reviewed by me Problem List/Assessment/Plan Problem List/Assessment/Plan Assessment/plan Neurology # metabolic encephalopathy due to sepsis -Head CT # sedation -off sedation for CPAP trial # peripheral neuropathy -we will resume home meds Cardiology # shock likely septic -currently off pressors # heart failure with reduced ejection fraction, chronic -resume home medications # history of atrial fibrillation, currently sinus rhythm -patient was on therapeutic Lovenox, switched to prophylactic dose # hypertension -resume home meds, -labetalol PRN # mild aortic stenosis with calcified aortic leaflets -seen on echo 03/09/2024 Respiratory # acute hypoxic respiratory failure, likely due to pneumonia intubated on 05/02/2024 extubated on 05/06/24 currently on BiPAP # community-acquired pneumonia, Gram-positive/Gram-negative -currently on IV antibiotics -sputum culture # obstructive sleep apnea -currently on BiPAP #Post-extubation Stridor -Racemic epi -IV methylprednisone once -monitor Nephrology # DELANEY due to VMN, improving -monitor # hypokalemia Corrected # non-anion gap metabolic acidosis with compensatory respiratory alkalosis, likely due to DELANEY -monitor ABG # hypomagnesemia Corrected Infectious disease # sepsis with septic shock -elevated lactic acid, resolving -IV antibiotics Blood culture IV fluids were given #? Cellulitis right lower leg -IV antibiotics GI #? GI bleed -IV Protonix -monitor # cholelithiasis without cholecystitis Seen on ultrasound liver # hepatomegaly with heterogeneous liver echotexture suggestive of chronic liver disease -seen on ultrasound liver Endocrine # uncontrolled hyperglycemia likely due to diabetes # diabetes mellitus type 2 -insulin Lantus with sliding scale insulin Hematology/Oncology # mild anemia, normocytic Monitor # history of prolactinoma status post surgery, 2009 # history of non-Hodgkin lymphoma, 2012, remission Psychiatry # history of anxiety/depression -resume home Meds once patient is extubated # history of opioid use disorder -will career and guidance counselor once patient is alert and oriented # history of tobacco use disorder will career and guidance counselor once patient is alert and oriented Nutrition off nutrition for CPAP trial swallow evaluation DVT prophylaxis Lovenox 50 mg subcutaneous daily Peptic ulcer disease prophylaxis Protonix 40 mg IV daily Bowel regimen Colace Lines Right IJ CVC 05/02/2024 Johnson's catheter 05/03/2024 Paulie Case discussion with Code status discussed with the family for greater than 23 minutes, full code Family at bedside updated about the condition of the patient Critical care time excluding procedures and including CPAP trial, post extubation monitoring : 111 min Plan discussed with: Other My Orders My Orders Orders - RACHELLE PATTERSON Procedure Category Date Status Time Chest Portable XY 05/06/24 Resulted 04:00 Abg W/ Co-Ox RT 05/06/24 Logged 04:00 Covid19 Antigen Tita LAB 05/05/24 Logged 15:51 Cpap Trial For Am ORDERS 05/05/24 Transmitted 15:56 Calamine Lotion PHA 05/05/24 In Process 21:15 Diphenhdramine PHA 05/05/24 In Process Injection (Benadryl 21:15 BIPAP RT 05/06/24 Logged 10:30 Extubate LUCERO 05/06/24 In Process 10:30 Albuterol Medneb PHA 05/06/24 In Process (Ventolin Medneb) 11:00 Ipratropium Medneb PHA 05/06/24 In Process (Atrovent Medneb) 11:00 Med Neb Initial RT 05/06/24 Logged Treatment 10:59 Date of Service: May 06, 2024 Billing Provider: PARKER ADAME MD Common Visit Codes: [id number] CARE 30-74 MIN, [id number] CARE-EACH +30MIN (X2) RACHELLE PATTERSON RESIDENT May 06, 2024 14:26 PARKER ADAME MD May 07, 2024 13:38
[2024-05-06] MEDS ORDERED: ENOXAPARIN SOD 60 MG/0.6 ML SYRINGE SC ONE (14:30)
--- NOTE | 2024-05-06 14:40 | DVHPN2 ---
Progress Note - Dictate Date Seen: May 06, 2024 Medical Necessity Reason Pt with a Central, PICC or Fol: Yes The following are medically ne: Johnson Catheter Reason for johnson catheter: Strict I&O Subjective Patient was seen in ICU 104 She was extubated this morning She is currently on BiPAP for stridor vital signs Vital Sign Date Time Temp Pulse Resp B/P (MAP) Pulse Ox O2 Delivery O2 Flow Rate FiO2 05/06/24 12:33 122 128/67 94 Facial BiPAP Mask 40 05/06/24 10:50 10.0 05/06/24 10:20 15 05/06/24 08:00 98.8 98.8 Total Intake and Output 05/05/24 05/05/24 05/06/24 14:59 22:59 06:59 Intake Total 307.970 ml 192.970 ml 547.939 ml Output Total 350 ml 400 ml Balance 307.970 ml -157.030 ml 147.939 ml medications Current Medications Medications Dose Ordered Sig/Suzette Route Start Time Stop Time Status Last Admin Dose Admin Fentanyl Citrate 250 ml @ 2.5 mls/hr Q24H IV 05/03/24 00:00 05/05/24 17:07 2.5 MLS/HR Norepinephrine Bitartrate 250 ml @ 3.75 mls/hr Q24H IV 05/03/24 02:15 05/04/24 22:18 15 MLS/HR Vancomycin HCl 0 ml @ 0 mls/hr UD IV 05/03/24 02:15 Pantoprazole Sodium 40 mg DAILY IV 05/04/24 10:00 05/06/24 12:28 40 MG Acetaminophen 650 mg Q6HP PRN [place] 05/03/24 02:15 05/04/24 20:12 650 MG Insulin Glargine 15 units DAILY@1000 SC 05/04/24 10:00 05/06/24 11:20 15 UNITS Diagnostic Test (Pha) 1 strip IQ4HR 05/03/24 08:00 05/06/24 12:35 1 STRIP Insulin Human Regular IQ4HR SC 05/03/24 08:00 05/06/24 12:42 3 UNITS Dextrose 50 ml UD PRN IV 05/03/24 04:15 Cefepime/Dextrose 50 ml @ 12.5 mls/hr Q8H IV 05/03/24 18:00 05/06/24 10:00 12.5 MLS/HR Vancomycin HCl 250 ml @ 200 mls/hr Q12H IV 05/04/24 12:00 05/06/24 12:29 200 MLS/HR Dexmedetomidine HCl 400 mcg/ Dextrose 100 ml @ 5.235 mls/ hr Q19H7M IV 05/04/24 17:00 05/06/24 00:11 5.235 MLS/HR Enteral Nutritional Formula 1,000 ml 30ML/HR GT 05/05/24 10:00 Docusate Sodium 100 mg BID GT 05/05/24 10:00 05/05/24 22:42 100 MG Calamine 1 applic QIDP PRN TOP 05/05/24 21:15 05/05/24 22:43 1 APPLIC Diphenhydramine HCl 25 mg Q4HP PRN IV 05/05/24 21:15 05/05/24 22:44 25 MG Albuterol 2.5 mg Q4HPRN PRN NEB 05/06/24 11:00 05/06/24 12:25 2.5 MG Ipratropium [place] 0.5 mg Q4HPRN PRN NEB 05/06/24 11:00 05/06/24 12:24 0.5 MG Potassium Chloride 100 ml @ 50 mls/hr Q2H IV 05/06/24 12:45 05/06/24 16:44 Enoxaparin Sodium 50 mg DAILY SC 05/07/24 10:00 UNV objective General Appearance: Awake arousable on BiPAP Respiratory: Clear to auscultation, Normal air movement, on mechanical ventilation Cardiovascular: Regular rate, Normal S1, Normal S2 Abdominal: Normal bowel sounds, soft Skin: Macular rash spots near left knee, right-sided alexander brownish discoloration and warmth to touch Neuro: Alert and oriented x3 with no focal deficit laboratory and microbiology Laboratory Tests 05/06/24 03:00 Test 05/06/24 03:00 Range/Units Serum Glucose 187 H 74-106 mg/dL Problems(with codes): (1) Coffee ground emesis (2) Encephalopathy (3) Septic shock (4) Uncontrolled diabetes mellitus Prognosis Plan Continue supportive care from a GI point of view Protonix 40 mg IV daily Swallow evaluation when more stable I will follow this patient as needed Dietary Evaluation Review Comments: 1. Increase protein support either through TF or by adding clinimix @41ml/hr. If choosing Clinmix @42ml/hr, she will receive 42.5 g protein and 510 kcal, them the TF can be reduced to 35ml/hr, the TOTAL OF THE TWO WILL BE 94.5G PRO AND 1518 KCAL, supporting pt's needs at 84% protein and 131% kcal.2. [facility] diet when pt can eat and pass a speech eval. 3. avoid NSAIDs, alcohol, spicy, highly acidic and caustic diets per MD doc. Expected Outcomes/Goals: Controlled blood glucose, improved protein nutrition, gradually healed wounds and gradual wt loss. Plan discussed with: Other (ICU Nurse) DELANEY MALDONADO MD May 06, 2024 14:40
[2024-05-06] MEDS: POTASSIUM CHL 20MEQ/100ML 100 ML IV SCH (15:33)
[2024-05-06] MEDS: ENOXAPARIN SOD 40 MG/0.4 ML SYRINGE SC ONE (15:36)
[2024-05-06 16:50] LABS: Base Excess -7.6 mmol/L (-2.0-3.0)
[2024-05-06] MEDS ORDERED: DEXTROSE (50%) 50ML SYRG IV PRN (17:00)
--- NOTE | 2024-05-06 17:26 | MEDREC ---
[facility] ASP Intervention Section I [facility] ASP Intervention: Deescalate AB based on CS (PLEASE CONSIDER DEESCALATING ANTIBIOTICS BASED ON CULTURE RESULTS IF CLINICALLY RELEVANT) DIANE WREN PHARMACIST May 06, 2024 17:26
[2024-05-06] MEDS: InsuLIN REG 1unit/0.01ml Soln (100units/ml) SC SCH (18:00)
[2024-05-06] MEDS: ACCU-CHEK COMFORT CURVE STRIP VI SCH (18:00)
[2024-05-06 20:17] LABS: Base Excess -2.9 mmol/L (-2.0-3.0)
[2024-05-07] VITALS (67 sets, daily range): BP systolic 121–168; BP diastolic 62–116; PULSE 80–130; RESP 10–29; TEMP 98.4–99.9; O2SAT 89–100
[2024-05-07 03:53] LABS: Basophils # (auto) 0 10 ^3/uL (0-0.2); Basophils % (auto) 0.3 % (0.0-2.0); Eosinophils # (auto) 0 10 ^3/uL (0-0.8); Eosinophils % (auto) 0.5 % (0.0-7.0); Hemoglobin 11.5 g/dL (12.2-16.2); Lymphocytes # (auto) 1.9 10 ^3/uL (0.4-5.4); Lymphocytes % (auto) 19.9 % (10.0-50.0); Mean Corpuscular Hemoglobin 29.1 pg (28.0-32.0); Mean Corpuscular Hgb Conc. 33.7 g/dL (32.0-36.0); Mean Corpuscular Volume 86.3 fL (80.0-100.0); Monocytes # (auto) 0.7 10 ^3/uL (0-1.3); Neutrophils # (auto) 6.9 10 ^3/uL (1.6-8.6); Neutrophils % (auto) 72.3 % (37.0-80.0); Platelet Count (auto) 197 10^3/uL (140-450); Red Blood Cells 3.94 10^6/uL (4.0-5.20); Red Cell Distribution Width 14.9 % (11.8-14.3); White Blood Cell 9.6 10^3/uL (4.4-10.8)
[2024-05-07 03:56] LABS: Chloride 105 mmol/L (98-107); Sodium 139 mmol/L (136-145)
[2024-05-07 03:57] LABS: Anion Gap 8 (5-15); Calcium 9.9 mg/dL (8.7-10.4); Carbon Dioxide 26 mmol/L (20-31)
[2024-05-07 04:02] LABS: BUN/Creatinine Ratio 13.3 (10.0-20.0); Blood Urea Nitrogen 11 mg/dL (9-23)
[2024-05-07 04:03] LABS: Magnesium 1.6 mg/dL (1.6-2.6)
[2024-05-07 04:15] LABS: Glucose 163 mg/dL (74-106); Potassium 3.4 mmol/L (3.5-5.1)
--- NOTE | 2024-05-07 04:45 | DVH ---
CHEST RADIOGRAPH Indication: post extubation Technique: Single frontal view of the chest was obtained Comparison: XY CHEST PORTABLE on DOS: 05/06/24 FINDINGS: Lines and Tubes: Right central venous catheter terminates in the superior vena cava. The endotrachea l and enteric tube have been removed. Lungs: Minimal left basilar atelectasis. The right lung remains clear. Pleura: No effusion. No pneumothorax. Cardiomediastinal contours: Unremarkable Bones: No acute osseous abnormality. IMPRESSION: 1. Removal of the endotracheal and enteric tube. 2. Minimal left basilar atelectasis similar to prior study.
[2024-05-07] MEDS: MAGNESIUM SULFATE 1GM/100ML 100 ML IV SCH (08:44)
[2024-05-07] MEDS: POTASSIUM CHL 20MEQ/100ML 100 ML IV ONE (08:44)
[2024-05-07] MEDS: LABETALOL HCL 20 MG/4 ML VL IV PRN ×2 (08:46→23:28)
[2024-05-07] MEDS: ENOXAPARIN SOD 40 MG/0.4 ML SYRINGE SC SCH (09:32)
[2024-05-07] MEDS ORDERED: ENOXAPARIN SOD 60 MG/0.6 ML SYRINGE SC SCH (10:00)
--- NOTE | 2024-05-07 11:12 | ECG ---
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
[2024-05-07] MEDS: VANCOMYCIN 500mg/100mL 100 ML IV SCH (17:05)
--- NOTE | 2024-05-07 17:58 | DVHPNRES ---
Progress Note Date Seen: May 07, 2024 Resident Creating Document: RACHELLE PATTERSON Medical Necessity Reason Pt with a Central, PICC or Fol: Yes The following are medically ne: Johnson Catheter Reason for johnson catheter: Strict I&O Subjective Review of Systems pt seen and examined at bedside pt was extubated yesterday currently on 3L oxygen through nasal canula pt had few episodes of sinus bradycardia overnight she mentioned improvement in her symptoms, but had mild stridor as per nurse, patient had mild bouts of confusion Objective vital signs Vital Sign Date Time Temp Pulse Resp B/P (MAP) Pulse Ox O2 Delivery O2 Flow Rate FiO2 05/07/24 16:00 113 05/07/24 16:00 99.0 18 121/88 (99) 95 99.0 05/07/24 16:00 Nasal Cannula* 3 32 Total Intake and Output 05/06/24 05/06/24 05/07/24 15:00 23:00 07:00 Intake Total 300.0 ml 80.0 ml 450.0 ml Output Total 2375 ml 2125 ml Balance 300.0 ml -2295.0 ml -1675.0 ml medications Current Medications Medications Dose Ordered Sig/Suzette Route Start Time Stop Time Status Last Admin Dose Admin Vancomycin HCl 0 ml @ 0 mls/hr UD IV 05/03/24 02:15 Pantoprazole Sodium 40 mg DAILY IV 05/04/24 10:00 05/07/24 09:31 40 MG Acetaminophen 650 mg Q6HP PRN IA 05/03/24 02:15 05/04/24 20:12 650 MG Insulin Glargine 15 units DAILY@1000 SC 05/04/24 10:00 05/07/24 09:35 15 UNITS Cefepime/Dextrose 50 ml @ 12.5 mls/hr Q8H IV 05/03/24 18:00 05/07/24 09:43 12.5 MLS/HR Enteral Nutritional Formula 1,000 ml 30ML/HR GT 05/05/24 10:00 Docusate Sodium 100 mg BID GT 05/05/24 10:00 05/05/24 22:42 100 MG Calamine 1 applic QIDP PRN TOP 05/05/24 21:15 05/05/24 22:43 1 APPLIC Diphenhydramine HCl 25 mg Q4HP PRN IV 05/05/24 21:15 05/07/24 15:14 25 MG Albuterol 2.5 mg Q4HPRN PRN NEB 05/06/24 11:00 05/07/24 02:27 2.5 MG Ipratropium [place] 0.5 mg Q4HPRN PRN NEB 05/06/24 11:00 05/07/24 02:27 0.5 MG Enoxaparin Sodium 50 mg DAILY SC 05/07/24 10:00 UNV Enoxaparin Sodium 40 mg DAILY SC 05/07/24 10:00 05/07/24 09:32 40 MG Diagnostic Test (Pha) 1 strip Q6HR 05/06/24 18:00 05/07/24 12:08 1 STRIP Insulin Human Regular Q6HR SC 05/06/24 18:00 05/07/24 12:09 6 UNITS Dextrose 50 ml UD PRN IV 05/06/24 17:00 Labetalol HCl 5 mg Q4HP PRN IV 05/07/24 13:45 Vancomycin HCl 100 ml @ 200 mls/hr Q12H IV 05/07/24 17:00 05/07/24 17:05 200 MLS/HR Examination Examination General Appearance: Alert, Oriented X3, Cooperative, No acute distress HEENT: EOMI Respiratory: Clear to auscultation, Normal air movement Cardiovascular: Regular rate, Normal S1, Normal S2 Abdominal: Normal bowel sounds Extremities: No cyanosis, No edema, Normal pulses, No tenderness/swelling Skin: No rashes, No breakdown Neuro: Normal speech and tone laboratory and microbiology Laboratory Tests 05/07/24 03:12 Test 05/07/24 03:12 Range/Units Serum Glucose 163 H 74-106 mg/dL Microbiology Date/Time Source Procedure Growth Status 05/03/24 03:45 Nose MRSA Screen - Final Complete 05/03/24 01:06 Voided Urine Urine Culture - Final Complete 05/02/24 23:50 Blood Blood Culture - Preliminary NO GROWTH AFTER 72 HOURS OF INCUBATION. Resulted 05/02/24 22:50 Sputum Gram Stain - Final Complete 05/02/24 22:50 Sputum Respiratory Culture - Final Complete Labs and/or images reviewed: Labs reviewed by me, Image(s) reviewed by me Problem List/Assessment/Plan Problem List/Assessment/Plan Assessment/plan Neurology # metabolic encephalopathy due to sepsis, s/p extubation -Head CT # sedation -off sedation for CPAP trial # peripheral neuropathy -we will resume home Meds Cardiology # shock likely septic -currently off pressors # heart failure with reduced ejection fraction, chronic -resume home medications # history of atrial fibrillation, currently sinus rhythm -patient was on therapeutic Lovenox, switched to prophylactic dose # hypertension -resume home Meds, -labetalol PRN # mild aortic stenosis with calcified aortic leaflets -seen on echo 03/09/2024 Respiratory # acute hypoxic respiratory failure, likely due to pneumonia intubated on 05/02/2024 extubated on 05/06/24 currently on NC # community-acquired pneumonia, Gram-positive/Gram-negative -currently on IV antibiotics -sputum culture # obstructive sleep apnea -Bipap at night #Post-extubation Stridor -Racemic epi -IV methylprednisone once -monitor Nephrology # DELANEY due to VMN, improving -monitor # hypokalemia Corrected # non-anion gap metabolic acidosis with compensatory respiratory alkalosis, likely due to DELANEY -monitor ABG # hypomagnesemia Corrected Infectious disease # sepsis with septic shock -elevated lactic acid, resolving -IV antibiotics Blood culture IV fluids were given #? Cellulitis right lower leg -IV antibiotics GI #? GI bleed -IV Protonix -monitor # cholelithiasis without cholecystitis Seen on ultrasound liver # hepatomegaly with heterogeneous liver echotexture suggestive of chronic liver disease -seen on ultrasound liver Endocrine # uncontrolled hyperglycemia likely due to diabetes # diabetes mellitus type 2 -insulin Lantus with sliding scale insulin Hematology/Oncology # mild anemia, normocytic Monitor # history of prolactinoma status post surgery, 2009 # history of non-Hodgkin lymphoma, 2012, remission Psychiatry # history of anxiety/depression -resume home Meds once patient is extubated # history of opioid use disorder -will res counselor once patient is alert and oriented # history of tobacco use disorder will res counselor once patient is alert and oriented Nutrition clear liquid diet per GI DVT prophylaxis Lovenox 50 mg subcutaneous daily Peptic ulcer disease prophylaxis Protonix 40 mg IV daily Bowel regimen Colace Lines Right IJ CVC 05/02/2024 Johnson's catheter 05/03/2024 Paulie PT evaluation ordered Transferred to [facility] Case discussion with Code status discussed with the family for greater than 23 minutes, full code Family at bedside updated about the condition of the patient Critical care time excluding procedures : 63 min Plan discussed with: Other My Orders My Orders Orders - RACHELLE PATTERSON RESIDENT Procedure Category Date Status Time Transfer Orders XFER 05/07/24 Transmitted 11:23 Dietary Evaluation Review Comments: 1. Increase protein support either through TF or by adding clinimix @41ml/hr. If choosing Clinmix @42ml/hr, she will receive 42.5 g protein and 510 kcal, them the TF can be reduced to 35ml/hr, the TOTAL OF THE TWO WILL BE 94.5G PRO AND 1518 KCAL, supporting pt's needs at 84% protein and 131% kcal.2. [facility] when pt can eat and pass a speech eval. 3. avoid NSAIDs, alcohol, spicy, highly acidic and caustic diets per MD doc. Expected Outcomes/Goals: Controlled blood glucose, improved protein nutrition, gradually healed wounds and gradual wt loss. Date of Service: May 07, 2024 Billing Provider: PARKER ADAME MD Common Visit Codes: [id number] CARE 30-74 MIN RACHELLE PATTERSON RESIDENT May 07, 2024 17:58 PARKER ADAME MD May 08, 2024 11:54
--- NOTE | 2024-05-07 20:09 | DVHPN2 ---
Progress Note - Dictate Date Seen: May 07, 2024 Medical Necessity Reason Pt with a Central, PICC or Fol: Yes The following are medically ne: Johnson Catheter Reason for johnson catheter: Strict I&O Subjective Patient was seen in ICU 104 , Patient is awake and alert and wants to drink We tested her and she was able to drink some water She is no longer on the BiPAP and her breathing is improved No GI bleeding is reported Patient denies any history of heartburn or GERD at this time and has not had any prior endoscopy or colonoscopy vital signs Vital Sign Date Time Temp Pulse Resp B/P (MAP) Pulse Ox O2 Delivery O2 Flow Rate FiO2 05/07/24 18:00 109 05/07/24 18:00 98.4 13 150/95 (113) 93 98.4 05/07/24 18:00 Nasal Cannula* 3 32 Total Intake and Output 05/06/24 05/06/24 05/07/24 15:00 23:00 07:00 Intake Total 300.0 ml 80.0 ml 450.0 ml Output Total 2375 ml 2125 ml Balance 300.0 ml -2295.0 ml -1675.0 ml medications Current Medications Medications Dose Ordered Sig/Suzette Route Start Time Stop Time Status Last Admin Dose Admin Vancomycin HCl 0 ml @ 0 mls/hr UD IV 05/03/24 02:15 Pantoprazole Sodium 40 mg DAILY IV 05/04/24 10:00 05/07/24 09:31 40 MG Acetaminophen [address] 05/03/24 02:15 05/04/24 20:12 650 MG Insulin Glargine 15 units DAILY@1000 SC 05/04/24 10:00 05/07/24 09:35 15 UNITS Cefepime/Dextrose 50 ml @ 12.5 mls/hr Q8H IV 05/03/24 18:00 05/07/24 18:00 12.5 MLS/HR Enteral Nutritional Formula 1,000 ml 30ML/HR GT 05/05/24 10:00 Docusate Sodium 100 mg BID GT 05/05/24 10:00 05/05/24 22:42 100 MG Calamine 1 applic QIDP PRN TOP 05/05/24 21:15 05/05/24 22:43 1 APPLIC Diphenhydramine HCl 25 mg Q4HP PRN IV 05/05/24 21:15 05/07/24 15:14 25 MG Albuterol 2.5 mg Q4HPRN PRN NEB 05/06/24 11:00 05/07/24 02:27 2.5 MG Ipratropium [place] 0.5 mg Q4HPRN PRN NEB 05/06/24 11:00 05/07/24 02:27 0.5 MG Enoxaparin Sodium 50 mg DAILY SC 05/07/24 10:00 UNV Enoxaparin Sodium 40 mg DAILY SC 05/07/24 10:00 05/07/24 09:32 40 MG Diagnostic Test (Pha) 1 strip Q6HR 05/06/24 18:00 05/07/24 18:02 1 STRIP Insulin Human Regular Q6HR SC 05/06/24 18:00 05/07/24 18:04 6 UNITS Dextrose 50 ml UD PRN IV 05/06/24 17:00 Labetalol HCl 5 mg Q4HP PRN IV 05/07/24 13:45 Vancomycin HCl 100 ml @ 200 mls/hr Q12H IV 05/07/24 17:00 05/07/24 17:05 200 MLS/HR objective General Appearance: Awake arousable on BiPAP Respiratory: Clear to auscultation, Normal air movement, on mechanical ventilation Cardiovascular: Regular rate, Normal S1, Normal S2 Abdominal: Normal bowel sounds, soft Skin: Macular rash spots near left knee, right-sided alexander brownish discoloration and warmth to touch Neuro: Alert and oriented x3 with no focal deficit laboratory and microbiology Laboratory Tests 05/07/24 03:12 Test 05/07/24 03:12 Range/Units Serum Glucose 163 H 74-106 mg/dL Problems(with codes): (1) Coffee ground emesis (2) Uncontrolled diabetes mellitus (3) Encephalopathy (4) Septic shock Prognosis Plan Protonix 40 mg IV daily Patient was able to drink water we will put her on a clear liquid diet We will monitor her labs and Outpatient elective panendoscopy to be considered once the patient is medically stabilized Once again thank you for allowing us to participate in the care of this patient Dietary Evaluation Review Comments: 1. Increase protein support either through TF or by adding clinimix @41ml/hr. If choosing Clinmix @42ml/hr, she will receive 42.5 g protein and 510 kcal, them the TF can be reduced to 35ml/hr, the TOTAL OF THE TWO WILL BE 94.5G PRO AND 1518 KCAL, supporting pt's needs at 84% protein and 131% kcal.2. Advance to [facility]-60 diet when pt can eat and pass a speech eval. 3. avoid NSAIDs, alcohol, spicy, highly acidic and caustic diets per MD doc. Expected Outcomes/Goals: Controlled blood glucose, improved protein nutrition, gradually healed wounds and gradual wt loss. Plan discussed with: Patient, Other (ICU Nurse) DELANEY MALDONADO MD May 07, 2024 20:09
[2024-05-08] VITALS (20 sets, daily range): BP systolic 118–168; BP diastolic 55–95; PULSE 73–126; RESP 13–30; TEMP 98–99.1; O2SAT 90–99
[2024-05-08 03:41] LABS: Basophils # (auto) 0.1 10 ^3/uL (0-0.2); Basophils % (auto) 0.7 % (0.0-2.0); Eosinophils # (auto) 0.3 10 ^3/uL (0-0.8); Eosinophils % (auto) 3.7 % (0.0-7.0); Hemoglobin 12.2 g/dL (12.2-16.2); Lymphocytes # (auto) 2.3 10 ^3/uL (0.4-5.4); Mean Corpuscular Hemoglobin 28.5 pg (28.0-32.0); Mean Corpuscular Hgb Conc. 33.1 g/dL (32.0-36.0); Mean Corpuscular Volume 86.1 fL (80.0-100.0); Monocytes # (auto) 0.7 10 ^3/uL (0-1.3); Monocytes % (auto) 8.7 % (0.0-12.0); Neutrophils # (auto) 4.4 10 ^3/uL (1.6-8.6); Neutrophils % (auto) 56.9 % (37.0-80.0); Nucleated Red Blood Cells % 0.1 %; Platelet Count (auto) 195 10^3/uL (140-450); Red Blood Cells 4.29 10^6/uL (4.0-5.20); Red Cell Distribution Width 14.8 % (11.8-14.3); White Blood Cell 7.7 10^3/uL (4.4-10.8)
[2024-05-08 03:58] LABS: Anion Gap 6 (5-15); Carbon Dioxide 27 mmol/L (20-31); Chloride 105 mmol/L (98-107); Potassium 3.7 mmol/L (3.5-5.1); Sodium 138 mmol/L (136-145)
[2024-05-08 03:59] LABS: Calcium 10.4 mg/dL (8.7-10.4)
[2024-05-08 04:04] LABS: BUN/Creatinine Ratio 9.9 (10.0-20.0); Blood Urea Nitrogen 9 mg/dL (9-23)
[2024-05-08 04:06] LABS: Glucose 215 mg/dL (74-106); Magnesium 1.4 mg/dL (1.6-2.6)
[2024-05-08] MEDS: MAGNESIUM SULFATE 1GM/100ML 100 ML IV SCH (10:00)
--- NOTE | 2024-05-08 15:56 | DVHPNRES ---
Progress Note Date Seen: May 08, 2024 Resident Creating Document: RACHELLE PATTERSON RESIDENT Medical Necessity Reason Pt with a Central, PICC or Fol: Yes The following are medically ne: Johnson Catheter Reason for johnson catheter: Strict I&O Subjective Review of Systems pt seen and examined at bedside pt was extubated 2 days ago currently on 3L oxygen through nasal canula downgraded to telemetry Objective vital signs Vital Sign Date Time Temp Pulse Resp B/P (MAP) Pulse Ox O2 Delivery O2 Flow Rate FiO2 05/08/24 13:00 111 24 136/93 (107) 98 Manual Cuff/Auscultation 05/08/24 12:00 Nasal Cannula* 2 28 05/08/24 12:00 99.1 99.1 Total Intake and Output 05/07/24 05/07/24 05/08/24 15:00 23:00 07:00 Intake Total 200 ml 100.0 ml 150.0 ml Output Total 1225 ml 900 ml Balance 200 ml -1125.0 ml -750.0 ml medications Current Medications Medications Dose Ordered Sig/Suzette Route Start Time Stop Time Status Last Admin Dose Admin Acetaminophen 650 mg Q6HP PRN [place] 05/03/24 02:15 05/04/24 20:12 650 MG Insulin Glargine 15 units DAILY@1000 SC 05/04/24 10:00 05/08/24 09:28 15 UNITS Docusate Sodium 100 mg BID GT 05/05/24 10:00 05/08/24 09:26 100 MG Calamine 1 applic QIDP PRN TOP 05/05/24 21:15 05/05/24 22:43 1 APPLIC Diphenhydramine HCl 25 mg Q4HP PRN IV 05/05/24 21:15 05/08/24 05:32 25 MG Albuterol 2.5 mg Q4HPRN PRN NEB 05/06/24 11:00 05/07/24 02:27 2.5 MG Ipratropium [place] 0.5 mg Q4HPRN PRN NEB 05/06/24 11:00 05/07/24 02:27 0.5 MG Enoxaparin Sodium 50 mg DAILY SC 05/07/24 10:00 UNV Enoxaparin Sodium 40 mg DAILY SC 05/07/24 10:00 05/08/24 09:26 40 MG Diagnostic Test (Pha) 1 strip Q6HR 05/06/24 18:00 05/08/24 12:23 1 STRIP Insulin Human Regular Q6HR SC 05/06/24 18:00 05/08/24 12:25 15 UNITS Dextrose 50 ml UD PRN IV 05/06/24 17:00 Labetalol HCl 5 mg Q4HP PRN IV 05/07/24 13:45 05/08/24 05:33 5 MG Ceftriaxone Sodium 50 ml @ 100 mls/hr DAILY@09 IV 05/09/24 09:00 Doxycycline Hyclate 100 ml @ 50 mls/hr Q12H IV 05/08/24 15:45 Pantoprazole Sodium 40 mg DAILY@0600 PO 05/09/24 06:00 Examination Examination General Appearance: Alert, Oriented X3, Cooperative, No acute distress HEENT: EOMI Respiratory: Clear to auscultation, Normal air movement Cardiovascular: Regular rate, Normal S1, Normal S2 Abdominal: Normal bowel sounds Extremities: No cyanosis, No edema, Normal pulses, No tenderness/swelling Skin: No rashes, No breakdown Neuro: Normal speech and tone laboratory and microbiology Laboratory Tests 05/08/24 03:05 Test 05/08/24 03:05 Range/Units Serum Glucose 215 H 74-106 mg/dL Microbiology Date/Time Source Procedure Growth Status 05/03/24 03:45 Nose MRSA Screen - Final Complete 05/03/24 01:06 Voided Urine Urine Culture - Final Complete 05/02/24 23:50 Blood Blood Culture - Final NO GROWTH AFTER 5 DAYS OF INCUBATION. Complete 05/02/24 22:50 Sputum Gram Stain - Final Complete 05/02/24 22:50 Sputum Respiratory Culture - Final Complete Labs and/or images reviewed: Labs reviewed by me, Image(s) reviewed by me Problem List/Assessment/Plan Problem List/Assessment/Plan Assessment/plan Neurology # metabolic encephalopathy due to sepsis, s/p extubation -Head CT # sedation -off sedation for CPAP trial # peripheral neuropathy -we will resume home Meds Cardiology # shock likely septic -currently off pressors # heart failure with reduced ejection fraction, chronic -resume home medications # history of atrial fibrillation, currently sinus rhythm -patient was on therapeutic Lovenox, switched to prophylactic dose # hypertension -resume home Meds, -labetalol PRN # mild aortic stenosis with calcified aortic leaflets -seen on echo 03/09/2024 Respiratory # acute hypoxic respiratory failure, likely due to pneumonia intubated on 05/02/2024 extubated on 05/06/24 currently on NC # community-acquired pneumonia, Gram-positive/Gram-negative -currently on IV antibiotics -switched to ceftriaxone plus doxycycline -sputum culture # obstructive sleep apnea -Bipap at night #Post-extubation Stridor -Racemic epi -IV methylprednisone once -monitor Nephrology # DELANEY due to VMN, improving -monitor # hypokalemia Corrected # non-anion gap metabolic acidosis with compensatory respiratory alkalosis, likely due to DELANEY -monitor ABG # hypomagnesemia Corrected Infectious disease # sepsis with septic shock -elevated lactic acid, resolving -IV antibiotics Blood culture IV fluids were given #? Cellulitis right lower leg -IV antibiotics GI #? GI bleed -IV Protonix -monitor # cholelithiasis without cholecystitis Seen on ultrasound liver # hepatomegaly with heterogeneous liver echotexture suggestive of chronic liver disease -seen on ultrasound liver Endocrine # uncontrolled hyperglycemia likely due to diabetes # diabetes mellitus type 2 -insulin Lantus with sliding scale insulin Hematology/Oncology # mild anemia, normocytic Monitor # history of prolactinoma status post surgery, 2009 # history of non-Hodgkin lymphoma, 2012, remission Psychiatry # history of anxiety/depression -resume home Meds once patient is extubated # history of opioid use disorder -will intellectual property counsel once patient is alert and oriented # history of tobacco use disorder will intellectual property counsel once patient is alert and oriented Nutrition clear liquid diet per GI\ advance to cardiac diet DVT prophylaxis Lovenox 50 mg subcutaneous daily Peptic ulcer disease prophylaxis Protonix 40 mg IV daily Bowel regimen Colace Lines Right IJ CVC 05/02/2024 Johnson's catheter 05/03/2024 Paulie PT evaluation ordered Downgraded to telemetry Case discussion with Code status discussed with the family for greater than 23 minutes, full code Family at bedside updated about the condition of the patient Critical care time excluding procedures : 57 min Plan discussed with: Other My Orders My Orders Orders - RACHELLE PATTERSON RESIDENT Procedure Category Date Status Time Transfer Orders XFER 05/08/24 Transmitted 10:14 Pt Request For Service PT 05/08/24 Logged 11:56 Consistent DIET 05/08/24 [facility]mitted [facility]Diabetes Lunch Discontinue Johnson LUCERO 05/08/24 In Process Catheter 11:56 D/C Tlc LUCERO 05/08/24 In Process 11:56 Complete Blood Count LAB 05/09/24 Verified 04:00 Magnesium LAB 05/09/24 Verified 04:00 Chest Portable XY 05/09/24 Logged 04:00 Ceftriaxone 1gm/50ml PHA 05/08/24 In Process D5w (Rocephin) 15:45 Ceftriaxone 1gm/50ml PHA 05/09/24 In Process D5w (Rocephin) 09:00 Doxycycline PHA 05/08/24 In Process 100mg/100ml 15:45 Pantoprazole Tablet PHA 05/09/24 In Process (Protonix Tablet) 06:00 Dietary Evaluation Review Comments: 1. Increase protein support either through TF or by adding clinimix @41ml/hr. If choosing Clinmix @42ml/hr, she will receive 42.5 g protein and 510 kcal, them the TF can be reduced to 35ml/hr, the TOTAL OF THE TWO WILL BE 94.5G PRO AND 1518 KCAL, supporting pt's needs at 84% protein and 131% kcal.2. [facility] when pt can eat and pass a speech eval. 3. avoid NSAIDs, alcohol, spicy, highly acidic and caustic diets per MD doc. Expected Outcomes/Goals: Controlled blood glucose, improved protein nutrition, gradually healed wounds and gradual wt loss. Date of Service: May 08, 2024 Billing Provider: PARKER ADAME MD Common Visit Codes: [id number] CARE 30-74 MIN RACHELLE PATTERSON RESIDENT May 08, 2024 15:56 PARKER ADAME MD May 11, 2024 12:31
[2024-05-08] MEDS: cefTRIAXone 1GM/50ML D5W 50 ML IV ONE (16:14)
[2024-05-08] MEDS: PANTOPRAZOLE 40 MG TAB PO ONE (16:14)
[2024-05-08] MEDS: DOXYCYCLINE 100MG/100ML 100 ML IV SCH (16:44)
[2024-05-09] VITALS (8 sets, daily range): BP systolic 103–134; BP diastolic 61–91; PULSE 94–120; RESP 18–19; TEMP 97.2–98.6; O2SAT 91–96
--- NOTE | 2024-05-09 05:56 | DVH ---
CHEST RADIOGRAPH Indication: sob Technique: Single frontal view of the chest was obtained Comparison: XY CHEST PORTABLE on DOS: 05/07/24 FINDINGS: Lines and Tubes: Removal of the right central venous catheter. Lungs: Bilateral interstitial prominence. Pleura: No effusion. No pneumothorax. Cardiomediastinal contours: Unremarkable Bones: No acute osseous abnormality. IMPRESSION: 1. Removal of the right central venous catheter. 2. Pulmonary congestion.
[2024-05-09] MEDS: PANTOPRAZOLE 40 MG TAB PO SCH (05:58)
[2024-05-09 07:44] LABS: Basophils # (auto) 0.1 10 ^3/uL (0-0.2); Basophils % (auto) 0.6 % (0.0-2.0); Eosinophils # (auto) 0.4 10 ^3/uL (0-0.8); Eosinophils % (auto) 3.9 % (0.0-7.0); Hematocrit 39.5 % (36.0-46.0); Hemoglobin 13.2 g/dL (12.2-16.2); Lymphocytes # (auto) 2.8 10 ^3/uL (0.4-5.4); Lymphocytes % (auto) 29.6 % (10.0-50.0); Mean Corpuscular Hemoglobin 28.9 pg (28.0-32.0); Mean Corpuscular Hgb Conc. 33.3 g/dL (32.0-36.0); Mean Corpuscular Volume 86.6 fL (80.0-100.0); Monocytes # (auto) 0.7 10 ^3/uL (0-1.3); Monocytes % (auto) 7.5 % (0.0-12.0); Neutrophils # (auto) 5.4 10 ^3/uL (1.6-8.6); Neutrophils % (auto) 58.4 % (37.0-80.0); Nucleated Red Blood Cells % 0.1 %; Platelet Count (auto) 225 10^3/uL (140-450); Red Blood Cells 4.56 10^6/uL (4.0-5.20); White Blood Cell 9.3 10^3/uL (4.4-10.8)
[2024-05-09 10:12] LABS: Potassium 3.5 mmol/L (3.5-5.1); Sodium 141 mmol/L (136-145)
[2024-05-09 10:14] LABS: Calcium 10.4 mg/dL (8.7-10.4); Chloride 107 mmol/L (98-107)
[2024-05-09 10:18] LABS: BUN/Creatinine Ratio 12.7 (10.0-20.0); Blood Urea Nitrogen 13 mg/dL (9-23)
[2024-05-09 10:21] LABS: Glucose 158 mg/dL (74-106)
[2024-05-09] MEDS: cefTRIAXone 1GM/50ML D5W 50 ML IV SCH (11:10)
[2024-05-09 11:22] LABS: Anion Gap 11 (5-15); Carbon Dioxide 23 mmol/L (20-31)
[2024-05-09] MEDS: MAGNESIUM OXIDE 400 MG TAB PO ONE (11:23)
--- NOTE | 2024-05-09 12:20 | DVHPNRES ---
Progress Note Date Seen: May 09, 2024 Resident Creating Document: ORION HILTON RESIDENT Has the PT tested + for MRSA If YES, has PT been informed?: No Medical Necessity Reason Pt with a Central, PICC or Fol: Yes The following are medically ne: Johnson Catheter Reason for johnson catheter: Strict I&O Subjective Review of Systems Stable, no GI bleed. Patient reports: Feels better Objective vital signs Vital Sign Date Time Temp Pulse Resp B/P (MAP) Pulse Ox O2 Delivery O2 Flow Rate FiO2 05/09/24 09:23 94 18 134/78 91 0.0 21 05/09/24 05:00 97.8 97.8 05/08/24 20:05 Room Air Total Intake and Output 05/08/24 05/08/24 05/09/24 15:00 23:00 07:00 Intake Total 450.0 ml 390 ml 150 ml Output Total 500 ml Balance 450.0 ml -110 ml 150 ml medications Current Medications Medications Dose Ordered Sig/Suzette Route Start Time Stop Time Status Last Admin Dose Admin Acetaminophen 650 mg Q6HP PRN DC 05/03/24 02:15 05/04/24 20:12 650 MG Insulin Glargine 15 units DAILY@1000 SC 05/04/24 10:00 05/09/24 11:21 15 UNITS Docusate Sodium 100 mg BID GT 05/05/24 10:00 05/09/24 11:10 100 MG Calamine 1 applic QIDP PRN TOP 05/05/24 21:15 05/05/24 22:43 1 APPLIC Diphenhydramine HCl 25 mg Q4HP PRN IV 05/05/24 21:15 05/08/24 21:23 25 MG Albuterol 2.5 mg Q4HPRN PRN NEB 05/06/24 11:00 05/07/24 02:27 2.5 MG Ipratropium [place] 0.5 mg Q4HPRN PRN NEB 05/06/24 11:00 05/07/24 02:27 0.5 MG Enoxaparin Sodium 50 mg DAILY SC 05/07/24 10:00 UNV Enoxaparin Sodium 40 mg DAILY SC 05/07/24 10:00 05/09/24 11:11 40 MG Diagnostic Test (Pha) 1 strip Q6HR 05/06/24 18:00 05/09/24 05:26 1 STRIP Insulin Human Regular Q6HR SC 05/06/24 18:00 05/09/24 06:01 2 UNITS Dextrose 50 ml UD PRN IV 05/06/24 17:00 Labetalol HCl 5 mg Q4HP PRN IV 05/07/24 13:45 05/08/24 05:33 5 MG Ceftriaxone Sodium 50 ml @ 100 mls/hr DAILY@09 IV 05/09/24 09:00 05/09/24 11:10 100 MLS/HR Doxycycline Hyclate 100 ml @ 50 mls/hr Q12H IV 05/08/24 15:45 05/09/24 03:44 50 MLS/HR Pantoprazole Sodium 40 mg DAILY@0600 PO 05/09/24 06:00 05/09/24 05:58 40 MG Examination: GENERAL:Normal, HEENT:Normal, NECK:Normal, LUNGS:Normal, CVS:Normal, ABDOMEN:Normal, MSK:Normal, SKIN:Normal, NEURO:Abnormal (patient is alert but not oriented to time and place, very distracted and oblivious of the surrounding. ) laboratory and microbiology Laboratory Tests 05/09/24 06:43 Test 05/09/24 06:43 Range/Units Serum Glucose 158 H 74-106 mg/dL Microbiology Date/Time Source Procedure Growth Status 05/03/24 03:45 Nose MRSA Screen - Final Complete 05/03/24 01:06 Voided Urine Urine Culture - Final Complete 05/02/24 23:50 Blood Blood Culture - Final NO GROWTH AFTER 5 DAYS OF INCUBATION. Complete 05/02/24 22:50 Sputum Gram Stain - Final Complete 05/02/24 22:50 Sputum Respiratory Culture - Final Complete Labs and/or images reviewed: Labs reviewed by me, Image(s) reviewed by me Problem List/Assessment/Plan Problem List/Assessment/Plan Reason for Consultation [facility] History: 64-year-old female with a history of type 2 diabetes, non-Hodgkin lymphoma in remission since 2009, and pituitary gland tumors (status post surgeries in 1985 and 2010), history of anxiety depression, paroxysmal atrial fibrillation, mild aortic stenosis, history of hypertension, HFpEF, SRI, CKD stage 2, chronic obesity, was brought to the hospital due to altered level of consciousness (ALOC). Her found her confused and lying on the floor. Upon arrival, she was restless and required sedation, intubation, and mechanical ventilation. She lives at home, is mobile at baseline, is an ex-smoker, and drinks alcohol occasionally. She has allergies to latex, penicillin, and sulfa antibiotics. Patient was sedated and on mechanical ventilation. Limited history, bedside noted who is also poor historian but denies any history of upper or lower GI bleeding. Occasional 1 episode of mild brown aspirate in the NG tube otherwise clear green bile aspirate and no signs of active bleeding noted with stable H&H, INR and pletlets. Assessment/impression: Brown aspirate in NG tube, H&H stable, negative NG aspirate, low probability of GI bleed Hepatomegally Cholelithiasis without cholecystitis - Acute metabolic encephalopathy, likely due to sepsis/hyperglycemia Pituitary gland tumor, status post surgery History of depression/anxiety Patient is sedated and on mechanical ventilation, RASS score -2 Paroxysmal atrial fibrillation Mild aortic stenosis History of hypertension HFpEF noted in recent Echo Acute hypoxic respiratory failure, likely due to pneumonia Gram-positive Gram- negative bacteria/viral Obstructive sleep apnea Septic shock on vasopressor support to keep map over 65, leukocytosis improved DELANEY, on CKD 2, likely VMN Uncontrolled DM type 2,Hb A1c from 03/08/2024 is 13.8 Obesity grade 2 BMI 40 Mild hyponatremia, monitoring Mild hyperchloremia, monitoring Asymptomatic hypercalcemia, monitoring History of non-Hodgkin lymphoma, stage IV, status post chemotherapy In remission since 2009 Mild dyslipidemia GI Plan/Recommendation: # Medication: pantoprazole 40 mg IV daily continue for GI prophylaxis> change to oral. H&H transfuse only if major drop or hemoglobin below 7, CMP to trend. # Plan procedure: If H&H remained stable no need of further workup in-hospital. Continue intermittent negative suction of NG tube no blood noted. # please avoid NSAIDs, alcohol, spicy, highly acidic and caustic diets. # please scheduled follow up with GI as outpatient with Dr. Arce. Thank you so much for the opportunity to consult on your patient. GI team will sign off. In case of any questions or concerns please feel free to reach out. Case an action plan discussed with Dr. Lali Arce. Complex care planning needed total 49 minutes of detailed discussion. The patient and caregiver team agreed to the plan. Plan discussed with: Patient, Other (primary team RN) Dietary Evaluation Review Comments: 1. Increase protein support either through TF or by adding clinimix @41ml/hr. If choosing Clinmix @42ml/hr, she will receive 42.5 g protein and 510 kcal, them the TF can be reduced to 35ml/hr, the TOTAL OF THE TWO WILL BE 94.5G PRO AND 1518 KCAL, supporting pt's needs at 84% protein and 131% kcal.2. Advance to CCHO-60 diet when pt can eat and pass a speech eval. 3. avoid NSAIDs, alcohol, spicy, highly acidic and caustic diets per MD doc. Expected Outcomes/Goals: Controlled blood glucose, improved protein nutrition, gradually healed wounds and gradual wt loss. ORION HILTON RESIDENT May 09, 2024 12:20
[2024-05-09 17:11] LABS: COVID19 ANTIGEN SOFIA FIA NEGATIVE (NEGATIVE)
--- NOTE | 2024-05-09 19:49 | DVHPNRES ---
Progress Note Date Seen: May 09, 2024 Resident Creating Document: RACHELLE PATTERSON RESIDENT Has the PT tested + for MRSA If YES, has PT been informed?: No Medical Necessity Reason Pt with a Central, PICC or Fol: Yes The following are medically ne: Johnson Catheter Reason for johnson catheter: Strict I&O Subjective Review of Systems pt seen and examined at bedside pt was extubated 2 days ago currently on room air pt is mildly confused Objective vital signs Vital Sign Date Time Temp Pulse Resp B/P (MAP) Pulse Ox O2 Delivery O2 Flow Rate FiO2 05/09/24 17:00 97.4 108 19 114/85 (95) 96 97.4 05/09/24 09:23 0.0 21 05/09/24 07:36 Nasal Cannula* Total Intake and Output 05/08/24 05/08/24 05/09/24 15:00 23:00 07:00 Intake Total 450.0 ml 390 ml 150 ml Output Total 500 ml Balance 450.0 ml -110 ml 150 ml medications Current Medications Medications Dose Ordered Sig/Suzette Route Start Time Stop Time Status Last Admin Dose Admin Acetaminophen 650 mg Q6HP PRN [place] 05/03/24 02:15 05/04/24 20:12 650 MG Insulin Glargine 15 units DAILY@1000 SC 05/04/24 10:00 05/09/24 11:21 15 UNITS Docusate Sodium 100 mg BID GT 05/05/24 10:00 05/09/24 11:10 100 MG Calamine 1 applic QIDP PRN TOP 05/05/24 21:15 05/05/24 22:43 1 APPLIC Albuterol 2.5 mg Q4HPRN PRN NEB 05/06/24 11:00 05/07/24 02:27 2.5 MG Ipratropium [place] 0.5 mg Q4HPRN PRN NEB 05/06/24 11:00 05/07/24 02:27 0.5 MG Enoxaparin Sodium 50 mg DAILY SC 05/07/24 10:00 UNV Enoxaparin Sodium 40 mg DAILY SC 05/07/24 10:00 05/09/24 11:11 40 MG Diagnostic Test (Pha) 1 strip Q6HR 05/06/24 18:00 05/09/24 17:49 1 STRIP Insulin Human Regular Q6HR SC 05/06/24 18:00 05/09/24 17:49 12 UNITS Dextrose 50 ml UD PRN IV 05/06/24 17:00 Labetalol HCl 5 mg Q4HP PRN IV 05/07/24 13:45 05/08/24 05:33 5 MG Ceftriaxone Sodium 50 ml @ 100 mls/hr DAILY@09 IV 05/09/24 09:00 05/09/24 11:10 100 MLS/HR Doxycycline Hyclate 100 ml @ 50 mls/hr Q12H IV 05/08/24 15:45 05/09/24 18:27 50 MLS/HR Pantoprazole Sodium 40 mg DAILY@0600 PO 05/09/24 06:00 05/09/24 05:58 40 MG Examination Examination General Appearance: Alert, Oriented X3, Cooperative, No acute distress HEENT: EOMI Respiratory: Clear to auscultation, Normal air movement Cardiovascular: Regular rate, Normal S1, Normal S2 Abdominal: Normal bowel sounds Extremities: No cyanosis, No edema, Normal pulses, No tenderness/swelling Skin: No rashes, No breakdown Neuro: Normal speech and tone laboratory and microbiology Laboratory Tests 05/09/24 06:43 Test 05/09/24 06:43 Range/Units Serum Glucose 158 H 74-106 mg/dL Microbiology Date/Time Source Procedure Growth Status 05/03/24 03:45 Nose MRSA Screen - Final Complete 05/03/24 01:06 Voided Urine Urine Culture - Final Complete 05/02/24 23:50 Blood Blood Culture - Final NO GROWTH AFTER 5 DAYS OF INCUBATION. Complete 05/02/24 22:50 Sputum Gram Stain - Final Complete 05/02/24 22:50 Sputum Respiratory Culture - Final Complete Labs and/or images reviewed: Labs reviewed by me, Image(s) reviewed by me Problem List/Assessment/Plan Problem List/Assessment/Plan Assessment/plan Neurology # metabolic encephalopathy due to sepsis, s/p extubation -Head CT # sedation -off sedation for CPAP trial # peripheral neuropathy -we will resume home Meds Cardiology # shock likely septic -currently off pressors # heart failure with reduced ejection fraction, chronic -resume home medications # history of atrial fibrillation, currently sinus rhythm -patient was on therapeutic Lovenox, switched to prophylactic dose # hypertension -resume home Meds, -labetalol PRN # mild aortic stenosis with calcified aortic leaflets -seen on echo 03/09/2024 Respiratory # acute hypoxic respiratory failure, likely due to pneumonia intubated on 05/02/2024 extubated on 05/06/24 currently on room air # community-acquired pneumonia, Gram-positive/Gram-negative -currently on IV antibiotics -switched to ceftriaxone plus doxycycline -sputum culture # obstructive sleep apnea -Bipap at night #Post-extubation Stridor -Racemic epi -IV methylprednisone once -monitor Nephrology # DELANEY due to VMN, improving -monitor # hypokalemia Corrected # non-anion gap metabolic acidosis with compensatory respiratory alkalosis, likely due to DELANEY -monitor ABG # hypomagnesemia Corrected Infectious disease # sepsis with septic shock -elevated lactic acid, resolving -IV antibiotics Blood culture IV fluids were given #? Cellulitis right lower leg -IV antibiotics GI #? GI bleed -IV Protonix -monitor # cholelithiasis without cholecystitis Seen on ultrasound liver # hepatomegaly with heterogeneous liver echotexture suggestive of chronic liver disease -seen on ultrasound liver Endocrine # uncontrolled hyperglycemia likely due to diabetes # diabetes mellitus type 2 -insulin Lantus with sliding scale insulin Hematology/Oncology # mild anemia, normocytic Monitor # history of prolactinoma status post surgery, 2009 # history of non-Hodgkin lymphoma, 2012, remission Psychiatry # history of anxiety/depression -resume home Meds once patient is extubated # history of opioid use disorder -will school guidance counselor once patient is alert and oriented # history of tobacco use disorder will school guidance counselor once patient is alert and oriented Nutrition clear liquid diet per GI\ advance to cardiac diet DVT prophylaxis Lovenox 50 mg subcutaneous daily Peptic ulcer disease prophylaxis Protonix 40 mg IV daily Bowel regimen Colace Lines Right IJ CVC 05/02/2024 Johnson's catheter 05/03/2024 Paulie PT evaluation ordered Downgraded to telemetry Case discussion with dr sawyer Code status discussed with the family for greater than 23 minutes, full code Plan discussed with: Other My Orders My Orders Orders - RACHELLE PATTERSON RESIDENT Procedure Category Date Status Time Complete Blood Count LAB 05/10/24 Verified 04:00 Comprehensive LAB 05/10/24 Verified Metabolic Panel 04:00 Magnesium LAB 05/10/24 Verified 04:00 Dietary Evaluation Review Comments: 1. Increase protein support either through TF or by adding clinimix @41ml/hr. If choosing Clinmix @42ml/hr, she will receive 42.5 g protein and 510 kcal, them the TF can be reduced to 35ml/hr, the TOTAL OF THE TWO WILL BE 94.5G PRO AND 1518 KCAL, supporting pt's needs at 84% protein and 131% kcal.2. [facility] when pt can eat and pass a speech eval. 3. avoid NSAIDs, alcohol, spicy, highly acidic and caustic diets per MD doc. Expected Outcomes/Goals: Controlled blood glucose, improved protein nutrition, gradually healed wounds and gradual wt loss. RACHELLE PATTERSON RESIDENT May 09, 2024 19:49
[2024-05-10] VITALS (11 sets, daily range): BP systolic 109–137; BP diastolic 60–90; PULSE 98–112; RESP 17–18; TEMP 97.4–98.9; O2SAT 91–99
[2024-05-10 07:31] LABS: Alanine Aminotransferase 19 U/L (7-40); Albumin 4.2 g/dL (3.2-4.8); Alkaline Phosphatase 79 U/L (46-116); Anion Gap 12 (5-15); Aspartate Aminotransferase 19 U/L (13-40); Blood Urea Nitrogen 23 mg/dL (9-23); Carbon Dioxide 22 mmol/L (20-31); Chloride 103 mmol/L (98-107); Potassium 3.6 mmol/L (3.5-5.1); Sodium 137 mmol/L (136-145)
[2024-05-10 07:32] LABS: Bilirubin, Total 0.3 mg/dL (0.2-1.0); Calcium 10.6 mg/dL (8.7-10.4); Glucose 191 mg/dL (74-106); Magnesium 1.6 mg/dL (1.6-2.6); Total Protein 7.7 g/dL (5.7-8.2)
[2024-05-10 08:04] LABS: Hematocrit 39.2 % (36.0-46.0); Hemoglobin 12.9 g/dL (12.2-16.2); Mean Corpuscular Hemoglobin 28.6 pg (28.0-32.0); Mean Corpuscular Volume 86.5 fL (80.0-100.0); Platelet Count (auto) 273 10^3/uL (140-450); Red Blood Cells 4.53 10^6/uL (4.0-5.20); Red Cell Distribution Width 14.9 % (11.8-14.3); White Blood Cell 11.2 10^3/uL (4.4-10.8)
[2024-05-10 08:07] LABS: Basophils % (manual) 0 (0.0-2.0); Blast Cells 0; Metamyelocytes % 0; Promyelocytes % 0
[2024-05-10 09:04] LABS: Band Neutrophils % (manual) 1; Eosinophils % (manual) 1 (0-7); Lymphocytes % (manual) 40 (10.0-50.0); Monocytes % (manual) 6 (0-12); Myelocytes % 2; Reactive Lymphocytes 3
[2024-05-10 09:05] LABS: Platelet Estimate Adequate
--- NOTE | 2024-05-10 22:45 | DVHPN2 ---
Subjective The patient is seen and examined at bedside. Remained intubated. On Levophed. Reviewed: Care Plan, H&P, Labs, Medications, Previous Orders, Radiology Changes from previous H/P or p: No Changes Objective Vitals Vital Signs Date Time Temp Pulse Resp B/P (MAP) Pulse Ox O2 Delivery O2 Flow Rate FiO2 05/10/24 21:04 97 Room Air* 0 21 05/10/24 17:13 97.6 105 18 120/90 (100) 97.6 Intake/Output Intake and Output 05/10/24 06:59 Intake Total 1300 ml Balance 1300 ml Intake Oral 1050 ml IV Total 250 ml # Voids 2 General Appearance: Other (Intubated, on vent, unable to exam) HEENT: Atraumatic, PERRLA, Mucous membr. moist/pink Neck: Supple Lungs: Clear to auscultation, Normal air movement Cardiovascular: Regular rate, Normal S1, Normal S2, No murmurs, Gallops, Rubs Abdomen: Normal bowel sounds, Soft, No tenderness Neuro: Other (Intubated, on vent, unable to exam) Medications Current Medications Medications Dose Ordered Sig/Suzette Route Start Time Stop Time Status Last Admin Dose Admin Acetaminophen 650 mg Q6HP PRN [place] 05/03/24 02:15 05/04/24 20:12 650 MG Insulin Glargine 15 units DAILY@1000 SC 05/04/24 10:00 05/10/24 09:12 15 UNITS Docusate Sodium 100 mg BID GT 05/05/24 10:00 05/10/24 21:44 100 MG Calamine 1 applic QIDP PRN TOP 05/05/24 21:15 05/05/24 22:43 1 APPLIC Albuterol 2.5 mg Q4HPRN PRN NEB 05/06/24 11:00 05/07/24 02:27 2.5 MG Ipratropium [place] 0.5 mg Q4HPRN PRN NEB 05/06/24 11:00 05/07/24 02:27 0.5 MG Enoxaparin Sodium 50 mg DAILY SC 05/07/24 10:00 UNV Enoxaparin Sodium 40 mg DAILY SC 05/07/24 10:00 05/10/24 09:03 40 MG Diagnostic Test (Pha) 1 strip Q6HR 05/06/24 18:00 05/10/24 17:18 1 STRIP Insulin Human Regular Q6HR SC 05/06/24 18:00 05/10/24 17:34 6 UNITS Dextrose 50 ml UD PRN IV 05/06/24 17:00 Labetalol HCl 5 mg Q4HP PRN IV 05/07/24 13:45 05/08/24 05:33 5 MG Ceftriaxone Sodium 50 ml @ 100 mls/hr DAILY@09 IV 05/09/24 09:00 05/10/24 09:04 100 MLS/HR Doxycycline Hyclate 100 ml @ 50 mls/hr Q12H IV 05/08/24 15:45 05/10/24 15:12 50 MLS/HR Pantoprazole Sodium 40 mg DAILY@0600 PO 05/09/24 06:00 05/10/24 05:16 40 MG Laboratory Results Laboratory Tests 05/10/24 06:11 Chemistry Test 05/10/24 06:11 Albumin 4.2 g/dL (3.2-4.8) Calcium Level 10.6 mg/dL (8.7-10.4) H Magnesium Level 1.6 mg/dL (1.6-2.6) Total Protein 7.7 g/dL (5.7-8.2) LFT Test 05/10/24 06:11 Alanine Aminotransferase (ALT) 19 U/L (7-40) Alkaline Phosphatase 79 U/L (46-116) Aspartate Amino Transferase (AST) 19 U/L (13-40) Total Bilirubin 0.3 mg/dL (0.2-1.0) Urinalysis Test 05/03/24 01:06 Urine Color Light-yellow (Yellow) Urine Clarity Clear (Clear) Urine pH 5.0 (5.0-9.0) Urine Specific [place] 1.031 (1.001-1.035) Urine Protein Trace (Negative) H Urine Ketones 1+ (Negative) H Urine Blood Negative /uL (Negative) Urine Nitrite Negative (Negative) Urine Bilirubin Negative (Negative) Urine Urobilinogen Normal mg/dL (Negative) Urine Leukocyte Esterase Negative /uL (Negative) Urine RBC 1 /hpf (0 - 4) Urine WBC 1 /hpf (0 - 5) Urine Squamous Epithelial Cells Few /hpf (<5) Urine Bacteria None seen /hpf (None Seen) Urine Yeast (Budding) Occasional /hpf (None Urine Creatinine 43.29 mg/dL (30.0-125.0) Urine Sodium 53 mmol/L (40-220) Urine Glucose 4+ mg/dL (Normal) H Microbiology Microbiology Date/Time Source Procedure Growth Status 05/03/24 03:45 Nose MRSA Screen - Final Complete 05/03/24 01:06 Voided Urine Urine Culture - Final Complete 05/02/24 23:50 Blood Blood Culture - Final NO GROWTH AFTER 5 DAYS OF INCUBATION. Complete 05/02/24 22:50 Sputum Gram Stain - Final Complete 05/02/24 22:50 Sputum Respiratory Culture - Final Complete Assessment/Plan Assessment/Plan Neurology # metabolic encephalopathy due to sepsis, s/p extubation -Head CT # sedation -off sedation for CPAP trial # peripheral neuropathy -we will resume home Meds Cardiology # shock likely septic -currently off pressors # heart failure with reduced ejection fraction, chronic -resume home medications # history of atrial fibrillation, currently sinus rhythm -patient was on therapeutic Lovenox, switched to prophylactic dose # hypertension -resume home Meds, -labetalol PRN # mild aortic stenosis with calcified aortic leaflets -seen on echo 03/09/2024 Respiratory # acute hypoxic respiratory failure, likely due to pneumonia intubated on 05/02/2024 extubated on 05/06/24 currently on room air # community-acquired pneumonia, Gram-positive/Gram-negative -currently on IV antibiotics -switched to ceftriaxone plus doxycycline -sputum culture # obstructive sleep apnea -Bipap at night #Post-extubation Stridor -Racemic epi -IV methylprednisone once -monitor Nephrology # DELANEY due to VMN, improving -monitor # hypokalemia Corrected # non-anion gap metabolic acidosis with compensatory respiratory alkalosis, likely due to DELANEY -monitor ABG # hypomagnesemia Corrected Infectious disease # sepsis with septic shock -elevated lactic acid, resolving -IV antibiotics Blood culture IV fluids were given #? Cellulitis right lower leg -IV antibiotics GI #? GI bleed -IV Protonix -monitor # cholelithiasis without cholecystitis Seen on ultrasound liver # hepatomegaly with heterogeneous liver echotexture suggestive of chronic liver disease -seen on ultrasound liver Endocrine # uncontrolled hyperglycemia likely due to diabetes # diabetes mellitus type 2 -insulin Lantus with sliding scale insulin Hematology/Oncology # mild anemia, normocytic Monitor # history of prolactinoma status post surgery, 2009 # history of non-Hodgkin lymphoma, 2012, remission Psychiatry # history of anxiety/depression -resume home Meds once patient is extubated # history of opioid use disorder -will assistant counsel once patient is alert and oriented # history of tobacco use disorder will assistant counsel once patient is alert and oriented Nutrition clear liquid diet per GI advance to cardiac diet DVT prophylaxis Lovenox 50 mg subcutaneous daily Peptic ulcer disease prophylaxis Protonix 40 mg IV daily Bowel regimen Colace Lines Right IJ CVC 05/02/2024 De [place] Cruz's catheter 05/03/2024 Physical therapy evaluation to try to get the patient out of bed and ambulate. This medical document was created using an electronic medical record system with [employer] computerized dictation system. Although this document has been carefully reviewed, there may still be some phonetic and typographical errors. These areas are purely typographical due to imperfections of the software programs, and do not reflect any compromise in the patient's medical care. Plan discussed with: Patient My Orders Orders - VASHTI JONAS MD Procedure Category Date Status Time Transfer Orders XFER 05/10/24 Transmitted 15:05 Date of Service: May 10, 2024 Billing Provider: VASHTI JONAS MD Common Visit Codes: [id number] INP/OBS CARE(HIGH) VASHTI JONAS MD May 10, 2024 22:45
[2024-05-11] VITALS (7 sets, daily range): BP systolic 116–140; BP diastolic 62–82; PULSE 94–120; RESP 17–19; TEMP 36.4; O2SAT 94–99
--- NOTE | 2024-05-11 13:42 | DVHDS2 ---
Discharge Summary Date of Admission May 03, 2024 at 02:00 Date of Discharge: May 11, 2024 Admitting Diagnosis # metabolic encephalopathy due to sepsis, s/p extubation # sedation # peripheral neuropathy # shock likely septic # heart failure with reduced ejection fraction, chronic # history of atrial fibrillation, currently sinus rhythm # hypertension # mild aortic stenosis with calcified aortic leaflets # acute hypoxic respiratory failure, likely due to pneumonia # community-acquired pneumonia, Gram-positive/Gram-negative # obstructive sleep apnea #Post-extubation Stridor, resolved # DELANEY due to VMN, improving # hypokalemia # non-anion gap metabolic acidosis with compensatory respiratory alkalosis, likely due to DELANEY # hypomagnesemia # Cellulitis right lower leg #? GI bleed # cholelithiasis without cholecystitis Seen on ultrasound liver # hepatomegaly with heterogeneous liver echotexture suggestive of chronic liver disease -seen on ultrasound liver Endocrine # uncontrolled hyperglycemia likely due to diabetes # diabetes mellitus type 2 -insulin Lantus with sliding scale insulin Hematology/Oncology # mild anemia, normocytic Monitor # history of prolactinoma status post surgery, 2009 # history of non-Hodgkin lymphoma, 2011, remission Psychiatry # history of anxiety/depression -resume home Meds once patient is extubated # history of opioid use disorder -will associate counsel once patient is alert and oriented # history of tobacco use disorder Labs/Diagnostic Data: Laboratory Results Test 05/11/24 11:23 05/10/24 06:11 05/09/24 16:15 05/09/24 06:43 POC Glucose 274 mg/dl (70-106) White Blood Count 11.2 10^3/uL (4.4-10.8) Red Blood Count 4.53 10^6/uL (4.0-5.20) Hemoglobin 12.9 g/dL (12.2-16.2) Hematocrit 39.2 % (36.0-46.0) Mean Corpuscular Volume 86.5 fL (80.0-100.0) Mean Corpuscular Hemoglobin 28.6 pg (28.0-32.0) Mean Corpuscular Hemoglobin Concent 33.0 g/dL (32.0-36.0) Red Cell Distribution Width 14.9 % (11.8-14.3) Platelet Count 273 10^3/uL (140-450) Mean Platelet Volume 8.3 fL (6.9-10.8) Neutrophils (%) (Auto) % (37.0-80.0) Lymphocytes (%) (Auto) % (10.0-50.0) Monocytes (%) (Auto) % (0.0-12.0) Basophils (%) (Auto) % (0.0-2.0) Neutrophils # (Auto) 10 ^3/uL (1.6-8.6) Lymphocytes # (Auto) 10 ^3/uL (0.4-5.4) Monocytes # (Auto) 10 ^3/uL (0-1.3) Differential Total Cells Counted 100.0 (100) Neutrophils % (Manual) 47 (37.0-80.0) Band Neutrophils % (Manual) 1 Lymphocytes % (Manual) 40 (10.0-50.0) Monocytes % (Manual) 6 (0-12) Eosinophils % (Manual) 1 (0-7) Basophils % (Manual) 0 (0.0-2.0) Metamyelocytes % (manual) 0 Myelocytes % (Manual) 2 Promyelocytes % (Manual) 0 Blast Cells % (Manual) 0 Reactive Lymphocytes 3 Platelet Estimate Adequate Sodium Level 137 mmol/L (136-145) Potassium Level 3.6 mmol/L (3.5-5.1) Chloride Level 103 mmol/L (98-107) Carbon Dioxide Level 22 mmol/L (20-31) Anion Gap 12 (5-15) Blood Urea Nitrogen 23 mg/dL (9-23) Creatinine 1.53 mg/dL (0.550-1.02) Glomerular Filtration Rate Calc 38 mL/min (>90) BUN/Creatinine Ratio 15.0 (10.0-20.0) Serum Glucose 191 mg/dL (74-106) Calcium Level 10.6 mg/dL (8.7-10.4) Magnesium Level 1.6 mg/dL (1.6-2.6) Total Bilirubin 0.3 mg/dL (0.2-1.0) Aspartate Amino Transferase (AST) 19 U/L (13-40) Alanine Aminotransferase (ALT) 19 U/L (7-40) Alkaline Phosphatase 79 U/L (46-116) Total Protein 7.7 g/dL (5.7-8.2) Albumin 4.2 g/dL (3.2-4.8) SARS-CoV-2 Antigen (Rapid) Negative (NEGATIVE) Eosinophils (%) (Auto) 3.9 % (0.0-7.0) Eosinophils # (Auto) 0.4 10 ^3/uL (0-0.8) Basophils # (Auto) 0.1 10 ^3/uL (0-0.2) Nucleated Red Blood Cells 0.1 % Test 05/07/24 11:05 05/06/24 20:08 05/06/24 08:45 05/06/24 03:00 Vancomycin Level Trough 26.0 ug/mL (5-10) Blood Gas Specimen Type Arterial Blood Gas Sample Site Right radial Blood Gas Patient Temperature 37.0 Arterial Blood Date Drawn [id number] Arterial Blood pH 7.432 (7.350-7.450) Arterial Blood Partial Pressure CO2 31.3 mmHg (32.0-45.0) Arterial Blood Partial Pressure O2 80.5 mmHg (83.0-108.0) Arterial Blood HCO3 20.4 mmol/L (21.0-28.0) Arterial Blood Oxygen Saturation 95.6 % (94.0-98.0) Arterial Blood Base Excess -2.9 mmol/L (-2.0-3.0) Arterial Blood Oxyhemoglobin 95.1 % (94.0-98.0) Arterial Blood Carboxyhemoglobin 0.4 % (0.5-1.5) Arterial Blood Methemoglobin 0.1 % (0.0-1.5) Sammy Test Modified Blood Gas Total Hemoglobin 12.90 g/dL (12.0-16.0) Blood Gas Set Respiration Rate 12.0 Blood Gas Modality Mask - bipap Blood Gas Spontaneous Rate 24 FiO2 % 40.0 Blood Gas Spontaneous Tidal Volume 710 Blood Gas EPAP 5 Blood Gas IPAP 12 Bl Gas Inspiratory/Expiratory Ratio 1:2 Blood Gas Pressure Support 8 Blood Gas PEEP or CPAP 5.0 Prothrombin Time 11.1 sec (9.3-11.8) Prothrombin Time INR 1.05 (0.9-1.15) Activated Partial Thromboplast Time 32.7 SEC (24.5-34.5) Test 05/05/24 11:21 05/05/24 06:30 05/04/24 07:09 05/04/24 03:23 Hemoglobin A1c 13.2 % A1C (<5.7) Blood Gas Tidal Volume 450.0 Blood Gas Inspiratory Pressure 21.0 Specimen Drawn By doug rt Random Vancomycin Level 8.2 ug/mL (5-10) Test 05/03/24 07:40 05/03/24 06:29 05/03/24 03:45 05/03/24 01:06 Lactic Acid Level 1.9 mmol/L (0.4-2.0) Blood Gas Liter Flow 60.00 Influenza Type A Antigen Negative (Negative) Influenza Type B Antigen Negative (Negative) Urine Color Light-yellow (Yellow) Urine Clarity Clear (Clear) Urine pH 5.0 (5.0-9.0) Urine Specific Byers 1.031 (1.001-1.035) Urine Protein Trace (Negative) Urine Ketones 1+ (Negative) Urine Blood Negative /uL (Negative) Urine Nitrite Negative (Negative) Urine Bilirubin Negative (Negative) Urine Urobilinogen Normal mg/dL (Negative) Urine Leukocyte Esterase Negative /uL (Negative) Urine RBC 1 /hpf (0 - 4) Urine WBC 1 /hpf (0 - 5) Urine Squamous Epithelial Cells Few /hpf (<5) Urine Bacteria None seen /hpf (None Seen) Urine Yeast (Budding) Occasional /hpf (None Urine Creatinine 43.29 mg/dL (30.0-125.0) Urine Sodium 53 mmol/L (40-220) Urine Glucose 4+ mg/dL (Normal) Urine Opiates Screen Neg (NEGATIVE) Urine Fentanyl Screen Pos (NEGATIVE) Urine Barbiturates Screen Neg (NEGATIVE) Urine Phencyclidine Screen Neg (NEGATIVE) Urine Amphetamines Screen Neg (NEGATIVE) Urine Benzodiazepines Screen Pos (NEGATIVE) Urine Cocaine Screen Neg (NEGATIVE) Urine Cannabinoids Screen Neg (NEGATIVE) Test 05/02/24 23:05 05/02/24 20:39 Troponin I High Sensitivity 31 ng/L (</=34) B-Type Natriuretic Peptide 18.11 pg/mL (0-100) Beta-Hydroxybutyric Acid 1.778 mmol/L (< 0.4) Other Laboratory Tests 05/10/24 06:11 Brief Hx & Hospital Course: This is a 64 years old female with past medical history of diabetes type 2, non- Hodgkin lymphoma status post chemotherapy, in remission since 2009, pituitary claimed tumor status post surgery 1985 and 2010 brought into emergency department because of altered mental status. The patient's found her confused in lighting on the floor upon return from his workplace. The patient was found to have septic shock and was put on IV antibiotic with Rocephin and Zithromax. The patient subsequently was intubated from 2024 to 05/06/2024. The patient was on vasopressor and subsequently able to wean off the pressor. The patient doing well today. She ambulate. Less shortness for breath. No altered mental status. She alert oriented x3. So I am going to discharge him home. Advised her to follow up with primary care physician 1-2 weeks. Activity as tolerated. Diet per home diet. Recommend low-salt low- cholesterol carb controlled diet. Physical exam: HEENT: Normocephalic atraumatic pupils equal react to light and accommodation. Extraocular muscles intact, conjunctiva pink, oropharynx moist, no thrush, no exudate. Lymphatic: No lymphadenopathy Cardiovascular exam: S1, S2 was heard. No murmurs, rubs, gallops Lung: Clear on auscultation bilaterally, no wheeze, rale, rhonchi. GI: Abdominal soft, nondistended, nontenderness, positive bowel sounds. Extremity: No crepitus, cyanosis, edema. Pedal pulses present bilateral. Full range of motion. Skin: Normal turgor, no rash. Psych: Alert, oriented x3. Neurology: No focal deficits, cranial nerve II to XII grossly intact. This medical document was created using an electronic medical record system with [employer] direct computerized dictation system. Although this document has been carefully reviewed, there may still be some phonetic and typographical errors. These areas are purely typographical due to imperfections of the software programs, and do not reflect any compromise in the patient's medical care. Condition at Discharge: Stable Final Diagnosis/Problems List # metabolic encephalopathy due to sepsis, s/p extubation # sedation # peripheral neuropathy # shock likely septic # heart failure with reduced ejection fraction, chronic # history of atrial fibrillation, currently sinus rhythm # hypertension # mild aortic stenosis with calcified aortic leaflets # acute hypoxic respiratory failure, likely due to pneumonia # community-acquired pneumonia, Gram-positive/Gram-negative # obstructive sleep apnea #Post-extubation Stridor, resolved # DELANEY due to VMN, improving # hypokalemia # non-anion gap metabolic acidosis with compensatory respiratory alkalosis, likely due to DELANEY # hypomagnesemia # Cellulitis right lower leg #? GI bleed Discharge Disposition: Home Discharge Statement: "Patient was advised to return to the ER or call 911 if any headaches, dizziness, shortness of breath, chest pain, abdominal pain, bleeding, fevers, or worsening of medical condition. Patient was counseled about treatment plan, medications, possible side effects, patientverbalized understanding. All questions were answered to the best of my ability. This discharge took greater then 30 minutes in planning, reviewing documentation, counseling the patient, and discussing with other team members." ASSESSMENT ASSESSMENT Assessment Date of Service: May 11, 2024 Billing Provider: VASHTI JONAS MD Common Visit Codes: 23950-PYS/OBS DISCH DAY >30min VASHTI JONAS MD May 11, 2024 13:42
[2024-05-11] MEDS ORDERED: LEVO500T91 PO (13:43)
--- NOTE | 2024-05-11 20:57 | DVHPN2 ---
Progress Note - Dictate Date Seen: May 11, 2024 (Late entry Time of visit 2:00 p.m.) Has the PT tested + for MRSA If YES, has PT been informed?: No Medical Necessity Reason Pt with a Central, PICC or Fol: Yes The following are medically ne: Johnson Catheter Reason for johnson catheter: Strict I&O Subjective No new complaints Patient is clinically much improved He is tolerating diet There was no respiratory distress Patient is able to move and ambulate freely Wound checks were done No GI bleeding is reported ; hemoglobin stable at 12.9 Patient denies any history of heartburn or GERD at this time and has not had any prior endoscopy or colonoscopy vital signs Vital Sign Date Time Temp Pulse Resp B/P (MAP) Pulse Ox O2 Delivery O2 Flow Rate FiO2 05/11/24 14:03 36.4 103 17 96 05/11/24 13:00 140/82 (101) 05/11/24 08:10 Room Air* 0 21 Total Intake and Output 05/10/24 05/10/24 05/11/24 15:00 23:00 07:00 Intake Total 150 ml 575 ml Output Total 900 ml Balance 150 ml -325 ml medications Current Medications Medications Dose Ordered Sig/Suzette Route Start Time Stop Time Status Last Admin Dose Admin Enoxaparin Sodium 50 mg DAILY SC 05/07/24 10:00 UNV objective General Appearance: Awake alert in no acute distress Respiratory: Clear to auscultation, Normal air movement, on mechanical ventilation Cardiovascular: Regular rate, Normal S1, Normal S2 Abdominal: Normal bowel sounds, soft Skin: Macular rash spots near left knee, right-sided alexander brownish discoloration and warmth to touch Neuro: Alert and oriented x3 with no focal deficit laboratory and microbiology Laboratory Tests 05/10/24 06:11 Test 05/10/24 06:11 Range/Units Serum Glucose 191 H 74-106 mg/dL Problems(with codes): (1) Coffee ground emesis (2) Uncontrolled diabetes mellitus (3) Encephalopathy (4) Septic shock Prognosis Plan Discharge planning is in progress Continue H2 blockers or PPI DC aspirin NSAIDs Outpatient follow up with GI Services for elective EGD and colon Dietary Evaluation Review Comments: 1. Increase protein support either through TF or by adding clinimix @41ml/hr. If choosing Clinmix @42ml/hr, she will receive 42.5 g protein and 510 kcal, them the TF can be reduced to 35ml/hr, the TOTAL OF THE TWO WILL BE 94.5G PRO AND 1518 KCAL, supporting pt's needs at 84% protein and 131% kcal.2. [facility] to [facility] diet when pt can eat and pass a speech eval. 3. avoid NSAIDs, alcohol, spicy, highly acidic and caustic diets per MD doc. Expected Outcomes/Goals: Controlled blood glucose, improved protein nutrition, gradually healed wounds and gradual wt loss. Plan discussed with: Patient DELANEY MALDONADO MD May 11, 2024 20:57
== END 2024-05-11 16:12 | disposition home or self-care (01) | DRG 871 ==
LOC: ER 20:16 → EDBD 20:16 → OVERFLOW 05-03 02:00 → ICU WEST 05-03 15:52 → DOU IN ICU 05-08 05:00 → TELE-EAST 05-08 15:45 → TELE-CENTR 05-09 18:35 → CENTRAL 05-10 15:29
PROVIDERS: ADMIT Internal Medicine; ATTEND Internal Medicine
PROC: 5A1945Z Respiratory Ventilation, 24-96 Consecutive Hours (ICD-10-PCS; principal; 2024-05-03)
PROC: 0BH17EZ Insertion of Endotracheal Airway into Trachea, Via Natural or Artificial Opening (ICD-10-PCS; 2024-05-03)
PROC: 02HV33Z Insertion of Infusion Device into Superior Vena Cava, Percutaneous Approach (ICD-10-PCS; 2024-05-03)
PROC: 5A09357 Assistance with Respiratory Ventilation, Less than 24 Consecutive Hours, Continuous Positive Airway Pressure (ICD-10-PCS; 2024-05-06)
PROC: 5A09357 Assistance with Respiratory Ventilation, Less than 24 Consecutive Hours, Continuous Positive Airway Pressure (ICD-10-PCS; 2024-05-07)
DX: A41.50 Gram-negative sepsis, unspecified (principal); G93.41 Metabolic encephalopathy; J15.212 Pneumonia due to Methicillin resistant Staphylococcus aureus; J96.01 Acute respiratory failure with hypoxia; R65.21 Severe sepsis with septic shock; J15.69 Pneumonia due to other Gram-negative bacteria; N17.0 Acute kidney failure with tubular necrosis; J98.11 Atelectasis; Z68.41 Body mass index [BMI] 40.0-44.9, adult; E87.1 Hypo-osmolality and hyponatremia; L03.115 Cellulitis of right lower limb; K92.2 Gastrointestinal hemorrhage, unspecified; E87.4 Mixed disorder of acid-base balance; I13.0 Hypertensive heart and chronic kidney disease with heart failure and stage 1 through stage 4 chronic kidney disease, or unspecified chronic kidney disease; I50.42 Chronic combined systolic (congestive) and diastolic (congestive) heart failure; Z20.822 Contact with and (suspected) exposure to COVID-19; D49.7 Neoplasm of unspecified behavior of endocrine glands and other parts of nervous system; E11.22 Type 2 diabetes mellitus with diabetic chronic kidney disease; E11.65 Type 2 diabetes mellitus with hyperglycemia; E66.01 Morbid (severe) obesity due to excess calories; I48.0 Paroxysmal atrial fibrillation; N18.2 Chronic kidney disease, stage 2 (mild); G47.33 Obstructive sleep apnea (adult) (pediatric); R16.0 Hepatomegaly, not elsewhere classified; K80.20 Calculus of gallbladder without cholecystitis without obstruction; E87.8 Other disorders of electrolyte and fluid balance, not elsewhere classified; K21.9 Gastro-esophageal reflux disease without esophagitis; F32.A Depression, unspecified; I35.0 Nonrheumatic aortic (valve) stenosis; E83.52 Hypercalcemia; F41.9 Anxiety disorder, unspecified; E78.5 Hyperlipidemia, unspecified; E11.40 Type 2 diabetes mellitus with diabetic neuropathy, unspecified; E87.6 Hypokalemia; E83.42 Hypomagnesemia; D64.9 Anemia, unspecified; Z88.0 Allergy status to penicillin; Z88.2 Allergy status to sulfonamides; Z91.040 Latex allergy status; Z85.72 Personal history of non-Hodgkin lymphomas; I25.2 Old myocardial infarction; Z87.891 Personal history of nicotine dependence; Z81.1 Family history of alcohol abuse and dependence; Z80.9 Family history of malignant neoplasm, unspecified; Z79.4 Long term (current) use of insulin; Z92.21 Personal history of antineoplastic chemotherapy
CPT/HCPCS: 31500; 36415; 36556; 36600; 71045; 74176; 76705; 80048; 80053; 80202; 80307; 81001; 82010; 82565; 82570; 82805; 82962; 83036; 83605; 83735; 83880; 84300; 84484; 85007; 85025; 85027; 85610; 85730; 87040; 87070; 87081; 87086; 87205; 87426; 87804; 93005; 93306; 93970; 94002; 94003; 94640; 94660; 96374; 97110; 97116; 97163; 97530; 99152; 99153; 99291; G0378; J0131; J0692; J1815; J2250; J2470; J2704; J3480; J7060